=== PATIENT | female | born 1950 | race Caucasian/White ===

== ENCOUNTER → 2016-05-27 13:07 | Outpatient (CLI) | payer MEDICARE, OTHER ==
[2014-10-08 10:15] VITALS: BMI 30.1
[~2016-05-27 13:07] MED LIST: ADVAIR 250/501 DISK INH; ASPIRIN325 MG PO; ATROVENT 0.02%2.5 ML UPD; CYCLOBENZAPRINE10 MG PO; FLUTICASONE PRO16 GM NASAL; HEMOCYTE PLUS C1 CAP PO; K-DUR20 MEQ PO; LEVAQUIN 5500 MG/100 PO; NORCO 7.5/325 T1 TA1 PO; SINGULAIR10 MG PO; SYMBICORT 16010.2 GM INH; SYNTHROID50 MCG PO; ULTRAM50 MG PO; VENTOLIN HFA18 GM INH; XANAX0.25 MG PO; XOPENEX 0.0.63 MG/3 UPD
== END | disposition home or self-care (01) ==
LOC: D.CT 13:07
DX: R10.9 Unspecified abdominal pain (principal)

== ENCOUNTER 2016-06-29 05:10 | Day surgery (SDC) | payer MEDICARE, OTHER ==
[2016-06-28 12:21] LABS: HEMATOCRIT 44.4 % (36.0-48.0); HEMOGLOBIN 14.8 g/dL (12-16); MCH 33.9 pg (26.0-34.0); MCHC 33.3 g/dL (31.0-37.0); MCV 101.8 fL (80.0-100.0); MEAN PLATELET VOLUME 9.5 fL (7.4-10.4); RBC 4.36 10x6/uL (4.00-5.40); RDW 12.5 % (11.5-14.5); WBC 8.3 10x3/uL (4.8-10.8)
[2016-06-28 12:41] LABS: BACTERIA FEW /hpf (NONE SEEN); COLOR STRAW (YELLOW); EPITHELIAL CELLS OCC /hpf (0-5); MUCUS <1+ /lpf (NONE SEEN); WHITE CELLS - URINE 0-5 /hpf (0-5)
[2016-06-28 12:42] LABS: APPEARANCE HAZY (CLEAR); BILIRUBIN NEGATIVE (NEGATIVE); GLUCOSE NEGATIVE (NEGATIVE); KETONE NEGATIVE (NEGATIVE); LEUKOCYTE ESTERASE 1+ (NEGATIVE); NITRITE NEGATIVE (NEGATIVE); PROTEIN NEGATIVE (NEGATIVE); UROBILINOGEN NORMAL (NORMAL)
[~2016-06-29] VITALS: Ht 162.6 cm; Wt 81.2 kg
[~2016-06-29 05:10] MED LIST changes: -CYCLOBENZAPRINE10 MG PO; -NORCO 7.5/325 T1 TA1 PO
[2016-06-29 06:26] VITALS: BP 111/73; Ht 162.6 cm; Wt 81.2 kg
[2016-06-29] MEDS ORDERED: CYCLOBENZAPRINE10 MG PO (09:31)
[2016-06-29] MEDS ORDERED: NORCO 7.5/325 T1 TA1 PO (09:31)
--- NOTE | 2016-06-29 11:01 | NUR ---
UP TO BATHROOM, GAIT STEADY. OXYGEN SATURATION IS 98% ON 1L NC. OXYGEN REMOVED.
--- NOTE | 2016-06-29 12:10 | NUR ---
DR WONG IN, ORDERS RECEIVED FOR FLEXERIL, GIVEN.
--- NOTE | 2016-06-29 14:00 | NUR ---
DR WONG IN, ABDOMINAL BINDER ON PER ORDER. INFORMED HAS BEEN UNABLE TO VOID.
--- NOTE | 2016-06-29 16:00 | NUR ---
UNABLE TO VOID, BLADDER SCANNED, SHOWS 50ML. DR WONG BEEPED.
--- NOTE | 2016-06-29 16:21 | NUR ---
DR WONG CALLED REGARDING 50ML ON BLADDER SCAN. INFORMED HIM SHE HAS AUDIBLE WHEEZING WHEN LAYING DOWN AND COARSE INSPIRATORY LUNG SOUNDS TO AUSCULTATION. INFORMED SHE IS ON XOPENEX NEBULIZER AT HOME. INFORMED I HAVE GIVEN A LITER OF FLUIDS SINCE BACK FROM OR, ORDERS RECEIVED. STATES IF ABLE TO VOID FROM [facility] MAY GO HOME, IF NOT TO CALL HIM BACK.
--- NOTE | 2016-06-29 16:26 | NUR ---
LASIX 20MG IVP ORDERED.
--- NOTE | 2016-06-29 16:55 | NUR ---
UP TO BATHROOM, VOIDED A LARGE AMOUNT. NO LONGER WHEEZING. IV REMOVED INTACT. DISCHARGE INSTRUCTIONS AND RX GIVEN, VOICED UNDERSTANDING.
--- NOTE | 2016-06-29 17:15 | NUR ---
VOIDED AGAIN. DISCHARGED HOME VIA . SMILING. DENIES NEEDS.
--- NOTE | 2016-06-30 08:20 | OP ---
PATIENT NAME: OPAL MATTHEWS MEDICAL RECORD: [id number] :52 LOCATION:D.OPS ADMISSION DATE: SURGEON: JESSICA WONG MD DATE OF OPERATION: 06/29/2016 SURGEON: Jessica Wong MD PREOPERATIVE DIAGNOSES: 1. Ventral incisional hernia. 2. Peripheral vascular disease. 3. Chronic obstructive pulmonary disease. 4. Nicotine dependence. POSTOPERATIVE DIAGNOSES: 1. Ventral incisional hernia. 2. Peripheral vascular disease. 3. Chronic obstructive pulmonary disease. 4. Nicotine dependence. PROCEDURE PERFORMED: Laparoscopic lysis of adhesions, laparoscopic incisional hernia repair with Ventralight mesh, ____ inch and 4 x 6 inch mesh. ANESTHESIA: General. COMPLICATIONS: None. SPECIMENS: None. Case was clean. ESTIMATED BLOOD LOSS: 15 cc. OPERATIVE COURSE: After consent was obtained, the patient was taken to the operating room and placed in the supine position on the operating table. Next, general anesthesia was given via endotracheal intubation after a timeout was performed to confirm the correct patient and procedure. Next, the abdomen was prepped and draped in typical sterile fashion. Ioban dressing was placed. Starting at the Nolasco's point in the left upper quadrant, local anesthetic was injected. A stab incision was made with 11-blade scalpel. Using a 5-mm bladeless optical trocar, the abdomen was entered. Under direct laparoscopic vision, adequate pneumoperitoneum was achieved. The abdominal cavity was inspected. No evidence of bowel injury. No evidence of bleeding. The patient had a large significant amount of adhesions along the midline abdominal incision, all containing greater omentum. There appeared to be no bowel stuck to the anterior abdominal wall. At this time, all additional trocars were placed, a 12-mm trocar in the left lateral quadrant, 5-mm trocar in the left lower quadrant, two 5-mm trocars in the right lateral quadrant. At this time, laparoscopic lysis of adhesions was performed with a combination of blunt dissection and electrocautery. There were a total of 6 midline incisional hernias with a Micronesian cheese appearance. The total length from the most superior to most and inferior hernia was 20 cm, the widest hernia measured approximately 5 cm. At this time, ____ inch Ventralight ST mesh was placed into the abdomen. It was tacked anteriorly at the xiphoid process with the OptiFix tacking device. It was circumferentially tacked to the abdominal wall in a double crown fashion using the OptiFix suture. A second piece of mesh, a 4 inch x 6 inch mesh was OPERATIVE REPORT [id number] OPAL MATTHEWS altered with scissors externally to fit. It was then placed in the abdomen and placed overlapping in the inferior portion of the stitch and then placed onto the pubic tubercle. Again, it was fashioned to the anterior abdominal wall in a double crown fashion using OptiFix suture device, both Echo positioning systems were then removed through the 12-mm trocar. All pieces were intact. At this time, the abdominal wall was inspected. There was no evidence of bowel injury. No evidence of bleeding. The mesh was securely fastened to the anterior abdominal wall. The greater omentum and small bowel was inspected. There was no evidence of bowel injury. No evidence of bleeding. At this time, all remaining instruments were removed. The abdomen was desufflated. Trocars were removed. Skin was closed with 4-0 Monocryl, Mastisol and Steri-Strips. At the end of the case, all needle and instrument counts were correct. No complications occurred. TRANSINT:[id number] Voice Confirmation ID: [id number] DOCUMENT ID: [id number] JESSICA WONG MD at 0820 CC: [id number] DICTATION DATE: 06/29/16928 INTERNAL MEDICINE NURSE: 06/29/16 1337 [facility] 06/29/16 [id number] [place] [address]
== END 2016-06-29 17:15 | disposition home or self-care (01) ==
LOC: D.OPS 05:10 → D.PAN 08:00 → D.OPS 08:00
PROVIDERS: Anesthesiology
DX: K43.2 Incisional hernia without obstruction or gangrene (principal); I73.9 Peripheral vascular disease, unspecified; J44.9 Chronic obstructive pulmonary disease, unspecified; F17.200 Nicotine dependence, unspecified, uncomplicated

== ENCOUNTER → 2016-11-15 09:25 | Outpatient (CLI) | payer MEDICARE, OTHER ==
[2016-06-29 06:26] VITALS: BMI 30.8
[~2016-11-15 09:25] MED LIST changes: +CYCLOBENZAPRINE10 MG PO; +NORCO 7.5/325 T1 TA1 PO
[2016-11-15 10:11] LABS: CREATININE - SERUM 0.8 mg/dL (0.6-1.3)
== END | disposition home or self-care (01) ==
LOC: D.CT 09:25
PROVIDERS: Family Medicine
DX: I73.9 Peripheral vascular disease, unspecified (principal); N19 Unspecified kidney failure

== ENCOUNTER → 2016-11-21 16:30 | Outpatient (CLI) | payer MEDICARE, OTHER ==
[2016-06-29 06:26] VITALS: BMI 30.8
== END | disposition home or self-care (01) ==
LOC: D.CT 16:30
DX: I73.9 Peripheral vascular disease, unspecified (principal)

== ENCOUNTER → 2016-12-06 17:09 | Outpatient (CLI) | payer MEDICARE, OTHER ==
[2016-06-29 06:26] VITALS: BMI 30.8
== END | disposition home or self-care (01) ==
LOC: D.MAMMO 09:30
DX: R92.8 Other abnormal and inconclusive findings on diagnostic imaging of breast (principal)

== ENCOUNTER 2016-12-14 05:26 | Inpatient (IN) | payer MEDICARE, OTHER ==
[2016-12-13 15:23] LABS: HEMATOCRIT 44.2 % (36.0-48.0); HEMOGLOBIN 15.1 g/dL (12-16); MCH 34.5 pg (26.0-34.0); MCHC 34.2 g/dL (31.0-37.0); MCV 100.9 fL (80.0-100.0); MEAN PLATELET VOLUME 9.1 fL (7.4-10.4); RBC 4.38 10x6/uL (4.00-5.40); RDW 12.3 % (11.5-14.5); WBC 8.3 10x3/uL (4.8-10.8)
[2016-12-13 15:31] LABS: APPEARANCE SLT CLOUDY (CLEAR); APTT 27.5 SECONDS (22.8-39.4); BILIRUBIN NEGATIVE (NEGATIVE); COLOR YELLOW (YELLOW); GLUCOSE NEGATIVE (NEGATIVE); INR 0.91 (0.85-1.17); KETONE NEGATIVE (NEGATIVE); LEUKOCYTE ESTERASE TRACE (NEGATIVE); NITRITE POSITIVE (NEGATIVE); PROTEIN TRACE mg/dL (NEGATIVE); PROTIME 12.1 SECONDS (11.6-15.0); SPECIFIC GRAVITY 1.015 (1.005-1.020); UROBILINOGEN NORMAL (NORMAL)
[2016-12-13 15:33] LABS: BACTERIA MANY /hpf (NONE SEEN); EPITHELIAL CELLS 0-5 /hpf (0-5); RED CELLS - URINE RARE /hpf (0-5)
[2016-12-13 16:01] LABS: ALBUMIN 3.7 g/dL (3.4-5.0); ANION GAP 12.5 mmol/L (8-16); BILIRUBIN - TOTAL 0.57 mg/dL (0.2-1.3); CALCIUM 8.8 mg/dL (8.5-10.1); CARBON DIOXIDE 28.6 mmol/L (21.0-32.0); POTASSIUM - SERUM 4.1 mmol/L (3.5-5.1); PROTEIN - SERUM 7.2 g/dL (6.4-8.2)
[~2016-12-14] VITALS: Ht 162.6 cm; Wt 79.5 kg
[2016-12-14] VITALS (34 sets, daily range): BP systolic 96–144; BP diastolic 49–81; BMI 29.7; BMI 31.1
[~2016-12-14 05:26] MED LIST changes: +ALENDRONATE SOD70 MG PO; +ASPIRIN81 MG PO
--- NOTE | 2016-12-14 12:10 | NUR ---
RECIEVED PT TO ROOM. ASSSESSMENT COMPLETE PER FLOWSHEET. REFER FOR DETAILS. ATTACHED TO ICU MONITORS. WILL RECOVER PT. CALL LIGHT IN REACH AND BED IS IN LOW POSITION WITH ALARM ON. WILL MONITOR FOR CHANGES.
--- NOTE | 2016-12-14 12:54 | NUR ---
MORPHINE FINAL INSPECTOR BALANCE WHEEL STARTED. PT C/O ABD AND INCISIONAL PAIN. WILL REASSESS.
[2016-12-14 13:31] LABS: HEMATOCRIT 38.5 % (36.0-48.0); HEMOGLOBIN 12.9 g/dL (12-16)
--- NOTE | 2016-12-14 15:00 | NUR ---
REASSESSMENT COMPLETE PER FLOWSHEET. NO CHANGES NOTED.
--- NOTE | 2016-12-14 17:45 | NUR ---
ONE TIME MORPHINE DOSE GIVEN PER ORDERS. WILL MONITOR.
--- NOTE | 2016-12-14 18:00 | NUR ---
FAMILY AT BEDSIDE. UPDATE PROVIDED.
--- NOTE | 2016-12-14 19:00 | NUR ---
1900: Pt resting HOB 30 degrees with eyes closed. Open to verbal. Pupils MALLORIE+ bilat. SMCx4=bilat anode rebuilder. Pt c/o incisional pain 5/10. Pt denies nausea, vomitting, tingling, or numbness. Pt breathing 022LNC with AA86-81f with SPO2 97%. Encouraged DBC. S1S2 rapid regular ST 120's on CM. Pt temp 100.0F oral. Right radial ART line intact and transduced to CM with proper WF. Pt bilateral groin with incision and dressing intact. No s/s of bleeding, oozing, swellling noted. Pt bilateral dorsalis pedis not palpable at this time, but easily assessed via doppler. ABD soft NT BSx4. Ragsdale/Criticore >30 cc/hr UOP.
--- NOTE | 2016-12-14 21:00 | NUR ---
2100: Pt family here at bedside. Provided water as per request and pt able to swallow without difficulty.
[2016-12-14 21:02] LABS: HEMOGLOBIN 13.3 g/dL (12-16)
--- NOTE | 2016-12-14 22:50 | NUR ---
2250: SBP 110-120 Continue to titrate NTG as per orders. No change in pt RESP/CV/NV status. No change in other IVF/UOP. Pt remains ST 120-130 bpm with Temp 100.0F oral at this time.
--- NOTE | 2016-12-14 23:15 | NUR ---
2315: NTG off at this time.
[2016-12-15] VITALS (41 sets, daily range): BP systolic 92–131; BP diastolic 50–69; Ht 162.6 cm; Wt 79.5 kg
--- NOTE | 2016-12-15 00:50 | NUR ---
0050: Pt c/o "burping up bile." Zofran admin at this time.
--- NOTE | 2016-12-15 01:00 | NUR ---
0100: Pt remains ST 120's at this time with SBP 100-110 with NTG off. Pt bilateral incision sites unchanged from assessment. Bilateral D. Pedis pulses easily obtainable via doppler.
--- NOTE | 2016-12-15 03:00 | NUR ---
0300: No change in pt RESP/CV/NV status. No change in incision sites or dressings. No s/s of bleeding or hematoma noted. Pt has no c/o at this time. Pt remains ST 118 with SBP 113 Temp 99.5F oral.
--- NOTE | 2016-12-15 04:45 | NUR ---
0445: Pt tearfull at this time. Pt withuot c/o. Reassured patient and provided positive re-enforcement. Pt states "I don't know why." Pt remains ST 116 with SBP 111 with NTG gtt off. No change in dressings or distal pulses. Pt c/o of feet being cold. Warm blanket to just feet placed. Removed large "white" blanket and pt remains with sheet.
[2016-12-15 06:01] LABS: HEMATOCRIT 38.4 % (36.0-48.0); HEMOGLOBIN 12.6 g/dL (12-16); MCH 34.1 pg (26.0-34.0); MCHC 32.8 g/dL (31.0-37.0); MEAN PLATELET VOLUME 8.9 fL (7.4-10.4); RBC 3.69 10x6/uL (4.00-5.40); RDW 12.8 % (11.5-14.5); WBC 8.8 10x3/uL (4.8-10.8)
[2016-12-15 06:05] LABS: MCV 104.1 fL (80.0-100.0)
--- NOTE | 2016-12-15 06:30 | NUR ---
0630: No change in pt RESP/CV/NV status. Pt remains calm at this time. No change in IVF/UOP.
[2016-12-15 06:38] LABS: ALBUMIN 2.5 g/dL (3.4-5.0); ANION GAP 12.8 mmol/L (8-16); BILIRUBIN - TOTAL 0.7 mg/dL (0.2-1.3); CARBON DIOXIDE 25.3 mmol/L (21.0-32.0); POTASSIUM - SERUM 4.1 mmol/L (3.5-5.1); PROTEIN - SERUM 5.5 g/dL (6.4-8.2)
--- NOTE | 2016-12-15 07:15 | NUR ---
REPORT RECIEVED FROM [facility] ROOM OPERATOR NURSE. PT RESTING QUEITLY. NO S/SX OF ACUTE DISTRESS NOTED AT THIS TIME. SHIFT ASSESSMENT COMPLETE PER FLOWSHEET. CALL LIGHT IN REACH. BED IN LOW POSITION. WILL CONT TO ASSESS FOR CHANGES.
--- NOTE | 2016-12-15 09:30 | NUR ---
R RADIAL A-LINE AND F/C REMOVED PER ORDERS. CATH INTACT FOR BOTH. MINIMAL BLEEDING UPON REMOVAL OF A-LINE. BAND AID PLACED OVER SITE. GUIDO HERNANDEZ.
--- NOTE | 2016-12-15 10:06 | NUR ---
* Is the patient Alert and Oriented? Yes 0 * How many steps to enter\exit or inside your home? Ramp 0 * PCP Dr. Beclher 0 * Pharmacy [facility] [address] 0 * Preadmission Environment Home with Family 0 * ADLs Independent 0 * Equipment Bedside Commode Nebulizer Rolling Walker 0 * List name and contact numbers for known caregivers / representatives who currently or will assist patient after discharge: Teodora - Enrico [phone] 0 * Additional services required to return to the preadmission environment? Yes 0 * Can the patient safely return to the preadmission environment? Yes 0 * Has this patient been hospitalized within the prior 30 days at any hospital? No Patient Name: OPAL MATTHEWS Admission Status: Elective Accout number: [id number] Admission Date: 12-14-2016 : 1950 Admission Diagnosis: Attending: JOE Current LOS: 1 Anticipated DC Date: 12-16-2016 Planned Disposition: Home with Home Health Primary Insurance: MEDICARE A & B Discharge Planning Comments: CM met with patient to assess dc plans/needs. Patient states she lives at home with her . She reports she is independent with all ADL's & IADL's. She has a walker & BSC but has not been using them at home. She also has a home nebulizer. She states she has had home health services in the past with [facility] & wants to use them again at discharge. JAMMIE signed. Initial referral faxed and called to Tyesha Esposito. CM will follow & assist as needed. Application Services Manager: Nicolle Leonard
--- NOTE | 2016-12-15 11:00 | NUR ---
PT AT BEDSIDE TO ASSIST PT OOB. ASSISTED TO RECLINER WITH MIN ASSIST. VS REMAINED STABLE. WILL CONT TO ASSESS.
--- NOTE | 2016-12-15 13:30 | NUR ---
REMAINS IN CHAIR. VSS. CALL LIGHT IN REACH. FRESH ICE WATER PLACED ON BST.
--- NOTE | 2016-12-15 16:00 | NUR ---
DR. GUERRA UPDATED ON PT'S CONCERNS OF MORPHINE MAKING HER NAUSEOUS. NO NEW ORDERS PROVIDED. WILL CONT TO ADMINISTER ZORFRAN NEEDED.
--- NOTE | 2016-12-15 17:00 | NUR ---
STATED SHE DID NOT WANT TO EAT DINNER. REQUESTED JELLO AND WATER.
--- NOTE | 2016-12-15 20:00 | NUR ---
2000: Pt assisted to bathroom with moderate assistance. Pt able to stand by self and gait unsteady without support. Pt returned to bed. (All linen changed) and all monitors and alarms reestablished. Pt placed on 022LNC PRN @ HS. (SPO2 94%) Pt c/o pain and nausea. MSO4 ROLL CARRIER in use and pt given Zofran for nausea as per orders. Bilateral incisions sites CDI with some bruising noted. No swelling, bleeding, oozing or s/s of hematoma assessed at this time. Pt distal pulses easily obtainable via doppler. Pt remains ST 120's on CM with SBP 140. Temp 98.5F Oral.
--- NOTE | 2016-12-15 22:00 | NUR ---
2200: Pt resting HOB 30 degrees with eyes closed at this time. Pt remains ST 110 with SBP 100's. No change in IVF/UOP.
[2016-12-16] VITALS (22 sets, daily range): BP systolic 105–142; BP diastolic 52–67
--- NOTE | 2016-12-16 01:00 | NUR ---
0100: Pt requested assessment of right groin site. Area slightly swollen, but remains WNL. No bleeding, oozing, or S/S of hematoma noted. Pt bilateral posterior tibial palable at this time and bilateral extrem warm to touch. Pt remains ST on CM 110 with SBP 100's. Pt remains on 022LNC while sleeping.
--- NOTE | 2016-12-16 05:00 | NUR ---
0500: Pt asssited up OOB. Pt gait unsteady and required moderate assistance. No change in RESP/CV/NV status.
[2016-12-16 09:02] LABS: HEMATOCRIT 36.4 % (36.0-48.0); HEMOGLOBIN 12.1 g/dL (12-16); MCH 34.2 pg (26.0-34.0); MCHC 33.2 g/dL (31.0-37.0); MCV 102.8 fL (80.0-100.0); MEAN PLATELET VOLUME 9.4 fL (7.4-10.4); RBC 3.54 10x6/uL (4.00-5.40); RDW 12.6 % (11.5-14.5); WBC 12.8 10x3/uL (4.8-10.8)
[2016-12-16 09:45] LABS: ANION GAP 10.8 mmol/L (8-16); CALCIUM 7.2 mg/dL (8.5-10.1); POTASSIUM - SERUM 3.8 mmol/L (3.5-5.1)
[2016-12-16 09:46] LABS: CREATININE - SERUM 1.3 mg/dL (0.6-1.3)
--- NOTE | 2016-12-16 11:05 | NUR ---
AMBULATED APPROX 250' WITH P.T.
--- NOTE | 2016-12-16 19:30 | NUR ---
REPORT RECVD. CSARE ASSUMED. INITIAL ASSMNT COMPLETED. SEE FLOWSHEET FOR ALL FINDINGS. AWAKE AND AOX4. PERRLA. RESP UNLABORED. LUNGS CTA ON RA. ST ON THE MONITOR. PULSES PALP, WEAK. GENERALIZED EDEMA NOTED. ASSISTED UP TO BR TO VOID CLR YELOOW UOP. C/O NAUSEA. BROWNISH YELLOWISH BILE EMESIS SEEN. PRN ZOFRAN GIVEN IVP. BATH GIVEN. LINENS CHANGED. ASSISTED BACK TO BED. POSITIONED SELF FOR COMFORT. VSS. HOB UP. C/L IN REACH. BED ALARM ON. CONT POC.
--- NOTE | 2016-12-16 21:30 | NUR ---
HS MEDS GIVEN WITH SIPS OF H20 D/T NAUSEA. PRN REGLAN GIVEN IVP FOR CONT SMALL AMNT OF EMESIS. VSS. HOB UP. C/L IN REACH. CONT POC.
--- NOTE | 2016-12-16 23:30 | NUR ---
REASSESSMENT COMPLETED. SEE FLOWSHEET FOR ALL FINDINGS. RESTING. RESP UNLABORED. LUNGS CTA ON RA. ST ON THE MONITOR. PULSES PALP, WEAK. GENERALIZED EDEMA NOTED. ASSISTED UP BR TO VOID CLR YELOOW UOP. ASSISTED BACK TO BED. POSITIONED SELF FOR COMFORT. CONT TO HAVE SMALL AMNT OF BILE LIKE EMESIS. VSS. HOB UP. C/L IN REACH. BED ALARM ON. CONT POC.
[2016-12-17] VITALS (23 sets, daily range): BP systolic 104–144; BP diastolic 60–79
--- NOTE | 2016-12-17 01:25 | NUR ---
RESTING WITH EYES CLOSED. VSS. ST ON THE MONITOR. HOB UP. C/L IN REACH. BED ALARM ON. CONT CURRENT POC.
--- NOTE | 2016-12-17 05:10 | NUR ---
REMAINS NAUSEATED WITH OCC SMALL AMNT OF BILE LIKE EMESIS NOTED. VSS. ST ON THE MONITOR. ORAL CARE SWABS PROVIDED. CONT POC.
--- NOTE | 2016-12-17 12:18 | OP ---
PATIENT NAME: OPAL MATTHEWS MEDICAL RECORD: [id number] :52 LOCATION:DAL[facility] D.CV07 ADMISSION DATE:12/14/16 SURGEON: SHAWN CHAVEZ MD DATE OF OPERATION: 12/14/2016 SURGEON: Shawn Chavez MD. ANESTHESIA: General endotracheal, Dr. Kessler. OPERATION PERFORMED: 1. Right to left femoral-femoral bypass utilizing 6 mm Impra graft. 2. Thromboendarterectomy, right common femoral artery. PREOPERATIVE DIAGNOSES: 1. Claudication of lower extremities bilaterally, left greater than right. 2. 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 POSTOPERATIVE DIAGNOSES: 1. Claudication of lower extremities bilaterally, left greater than right. 2. 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 INDICATION FOR OPERATION: Claudication. FINDINGS OF THE OPERATION: There was thrombosis and sclerosis of the proximal common femoral artery. There was also debris with neointima and clot in the right limb of the aortobifemoral graft. The vessels below were both supple and good targets. ESTIMATED BLOOD LOSS: Less than 150 mL. The graft is an Impra 6 mm, beaded. DESCRIPTION OF PROCEDURE: After informed consent, adequate preoperative medication evaluation, the patient was brought to the operating room and placed on the table in supine position. After induction of general endotracheal anesthesia and application of appropriate monitoring devices, the abdomen, groins and both thighs were prepped and draped in a sterile field, utilizing Betadine scrub, alcohol, and Betadine solution. A Betadine-impregnated drape was also used. An oblique incision was made above the left inguinal ligament and dissection carried down the fascia. Hemostasis maintained with electrocautery. The common femoral artery and the profunda femoral artery were dissected free of surrounding structures, which was difficult due to previous surgery above. A retrorectus plane was developed under direct vision. Attention was then turned toward the right groin. Incision made and dissection carried down to the fascia. The inguinal ligament was elevated. There were dense adhesions between the graft and the inguinal ligament as well as the graft and common femoral and distal iliac vein. This was all dissected free with careful sharp dissection. The patient then had a retrorectus tunnel made in the preperitoneal space, right to left. A passer was placed down the graft brought through the tube. The anastomosis to the right was then accomplished by incising the foot of the graft and on to the common femoral artery. The artery underwent a thromboendarterectomy with a good result. The anastomosis was approximately 3.5 cm in length, which formed as a patch angioplasty as well as the proximal end of the femoral-femoral bypass. Anastomosis accomplished with 5-0 [place]-Wade suture. All maneuvers to remove trapped air were performed. The OPERATIVE REPORT [id number] OPAL MATTHEWS clamps placed on the graft and flow allowed through the right leg. There was excellent flow by Doppler. The contralateral anastomosis was then accomplished to the distal common femoral artery end-to-side utilizing a running 5-0 [place]-Wade suture. All maneuvers removed trapped air were performed. The clamps were removed sequentially. The artery secured. The patient was given a calculated dose of protamine to reverse the heparin. Heparin was given 3 minutes before clamping. The graft had good flow as well as the common femoral arteries bilaterally. Hemostasis was achieved. Instrument count and sponge counts were correct times 2. The wounds closed in layers utilizing 2-0 Vicryl on deep subcutaneous tissue, 3-0 Vicryl on superficial subcutaneous tissues. Skin approximated with 5-0 subcuticular Vicryl. Sterile dressings were applied. The patient tolerated the procedure well and transferred to the CV ICU in satisfactory condition. TRANSINT:[id number] Voice Confirmation ID: [id number] DOCUMENT ID: [id number] SHAWN CHAVEZ MD at 1218 CC: [id number] DICTATION DATE: 12/14/16 1233 SHIP BOSS: 12/14/16 1621 ADM [address] [place] [id number] [place] [id number]
--- NOTE | 2016-12-17 16:30 | NUR ---
DR. GUERRA NOTIFIED OF XRAY RESULTS.
--- NOTE | 2016-12-17 17:30 | NUR ---
NGT PLACED BY RINA SPENCER. VERIFIED BY AUSCLETATION. CONTRAST TO BE GIVEN.
--- NOTE | 2016-12-17 17:45 | NUR ---
1 HOUR PREP ORDERED.
--- NOTE | 2016-12-17 19:30 | NUR ---
REPORT RECVD. CSARE ASSUMED. INITIAL ASSMNT COMPLETED. SEE FLOWSHEET FOR ALL FINDINGS. AWAKE AND AOX4. PERRLA. RESP UNLABORED. LUNGS CTA ON RA. ST ON THE MONITOR. PULSES PALP, WEAK. GENERALIZED EDEMA NOTED. UP IN CHAIR AT BEDSIDE. DENIES DISCOMFOR. ABD DISTENDED, BS SCANT. NGT PATENT AND SECURED TO LIWS. BROWNISH STOMACH CONTENTS TO CANISTER. LINENS CHANGED. ASSISTED BACK TO BED. POSITIONED SELF FOR COMFORT. VSS. HOB UP. C/L IN REACH. BED ALARM ON. CONT POC.
--- NOTE | 2016-12-17 21:00 | NUR ---
ASSISTED TO BR TO VOID. BACK TO BED. NGT PATENT AND SECURED TO LIWS. VSS. HOB UP. C/L IN REACH. CONT POC.
--- NOTE | 2016-12-17 21:45 | NUR ---
SPOKE WITH DR PACK, RADIOLOGIST WITH RAYS R/T CT SCAN RESULTS. INFORMED DR GUERRA TO CALL DR PACK TO DISCUSS.
--- NOTE | 2016-12-17 22:20 | NUR ---
SPOKE WITH DR GUERRA. ORDERS RECVDTO CONSENT FOR SX IN AM AND ORDERS FOR ABT INVANZ, AND TYPE AND SCREEN FOR 4 UNITS. NFL PLAYER NOTIFIED FOR MEDICATION AND TO CONTACT HEART TEAM AND ANESTHESIA.
--- NOTE | 2016-12-17 23:00 | NUR ---
SPOKE WITH DR MCCLELLAND. PRE OP ANESTHESIA ORDERS RECVD.
--- NOTE | 2016-12-17 23:30 | NUR ---
REASSESSMENT COMPLETED. SEE FLOWSHEET FOR ALL FINDINGS. FINDINGS. RESTING. AOX4. PERRLA. RESP UNLABORED. LUNGS CTA ON RA. ST ON THE MONITOR. PULSES PALP, WEAK. GENERALIZED EDEMA NOTED. DENIES DISCOMFOR. ABD DISTENDED, BS SCANT. NGT PATENT AND SECURED TO LIWS. BROWNISH STOMACH CONTENTS TO CANISTER. BLADDER NON PALP. UP TO BR WITH MINIMAL ASSIST. POSITIONED SELF FOR COMFORT. VSS. HOB UP. C/L IN REACH. BED ALARM ON. CONT POC.
[2016-12-18] VITALS (33 sets, daily range): BP systolic 107–152; BP diastolic 54–90
--- NOTE | 2016-12-18 01:30 | NUR ---
RESTING WITH NO DISTRESS. DISCUSSED PROCEDURE IN AM. CONSENTS SIGNED. TEACHING DONE. TEARFUL. WILL CALL FAMILY IN AM PER REQUEST. VSS. ASSISTED TO BR TO VOID JOAQUINA CONCENTRATED UOP. VSS. HOB UP. C/L IN REACH. CONT CURRENT POC.
--- NOTE | 2016-12-18 03:30 | NUR ---
REASSESSMENT COMPLETED. SEE FLOWSHEET FOR ALL FINDINGS. FINDINGS. RESTING. AOX4. PERRLA. RESP UNLABORED. LUNGS CTA ON RA. SR ON THE MONITOR. PULSES PALP, WEAK. GENERALIZED EDEMA NOTED. DENIES DISCOMFOR. ABD DISTENDED, BS SCANT. NGT PATENT AND SECURED TO LIWS. BROWNISH STOMACH CONTENTS TO CANISTER. BLADDER NON PALP. UP TO BR WITH MINIMAL ASSIST. POSITIONED SELF FOR COMFORT. VSS. HOB UP. C/L IN REACH. BED ALARM ON. CONT POC.
--- NOTE | 2016-12-18 05:00 | NUR ---
HIBICLENS BATH DONE. ASSISTED BR TO VOID. VSS. NGT PATENT AND SECURED. HOB UP. C/L IN REACH. CONT POC.
[2016-12-18 05:44] LABS: HEMATOCRIT 32.5 % (36.0-48.0); HEMOGLOBIN 11.3 g/dL (12-16); MCH 34.5 pg (26.0-34.0); MCHC 34.8 g/dL (31.0-37.0); MEAN PLATELET VOLUME 9.5 fL (7.4-10.4); RBC 3.28 10x6/uL (4.00-5.40); RDW 12.2 % (11.5-14.5)
--- NOTE | 2016-12-18 05:48 | NUR ---
SISTER AT BEDSIDE. UPDATE GIVEN.
[2016-12-18 05:50] LABS: MCV 99.1 fL (80.0-100.0)
[2016-12-18 06:02] LABS: ALBUMIN 2.1 g/dL (3.4-5.0); ANION GAP 13.6 mmol/L (8-16); BILIRUBIN - TOTAL 0.89 mg/dL (0.2-1.3); CARBON DIOXIDE 26.9 mmol/L (21.0-32.0); CREATININE - SERUM 1.2 mg/dL (0.6-1.3); POTASSIUM - SERUM 3.5 mmol/L (3.5-5.1); PROTEIN - SERUM 6.6 g/dL (6.4-8.2)
--- NOTE | 2016-12-18 07:11 | NUR ---
TRANSFERRED TO OR VIA BED WITTH OR TEAM.
--- NOTE | 2016-12-18 12:00 | NUR ---
UPPER EXT PPP. LOWER RIGHT EXT DOPPLERABLE AT POST TIBIAL AND DORSALIS PEDAL. LEFT LOWER EXT DOPPERABLE AT POST TIBIAL ONLY. DORSALIS PEDAL IS ABSENT.
--- NOTE | 2016-12-18 12:00 | NUR ---
REC'D FROM OR ACCOMPANIED BY OR STAFF. HOOKED UP LTO CM BY YADIRA NORTON RN. LEFT SCDL WITH PLASMALYTE, DOPAMINE INFUSING. SBP 167. DOPAMINE TURNED OFF AND NITRO GTT STARTED. ANSWERS QUESTIONS WITH HEAD NODS.SBP REDUCES TO 135. LEFT RADIAL TRACEY LEVELED AND ZEROED. CVP TO DISTAL PORT OF LEFT SCDL. LEVELED AND ZEROED. LEFT UPPER QUAD DRSG. BILAT GROIN INCISIONS. ALL DRSG CD&I. SCD'S. HEELS ARE BRIDGED. CPOC
[2016-12-18 13:11] LABS: HEMATOCRIT 28.8 % (36.0-48.0); HEMOGLOBIN 9.8 g/dL (12-16); MCH 33.8 pg (26.0-34.0); MCV 99.3 fL (80.0-100.0); RBC 2.9 10x6/uL (4.00-5.40); RDW 12.6 % (11.5-14.5); WBC 10.9 10x3/uL (4.8-10.8)
[2016-12-18 13:25] LABS: ALBUMIN 1.7 g/dL (3.4-5.0); ALKALINE PHOSPHATASE 41 U/L (46-116); ALT (SGPT) 18 U/L (10-68); BILIRUBIN - TOTAL 1.26 mg/dL (0.2-1.3); CALC OSMOLALITY 264 mosm/kg (275-300); CALCIUM 7.1 mg/dL (8.5-10.1); CARBON DIOXIDE 24.4 mmol/L (21.0-32.0); CHLORIDE - SERUM 99 mmol/L (98-107); GLUCOSE 128 mg/dL (74-106); POTASSIUM - SERUM 3.1 mmol/L (3.5-5.1); SODIUM 128 mmol/L (136-145); UREA NITROGEN 30 mg/dL (7-18)
[2016-12-18 13:27] LABS: CREATININE - SERUM 0.7 mg/dL (0.6-1.3); PROTEIN - SERUM 4.9 g/dL (6.4-8.2); eGFR NON AFRICAN AMERICAN 89 mL/min (90-120)
--- NOTE | 2016-12-18 15:15 | NUR ---
AWAKE. FLACC SCALE 8/10 FOR PAIN.
--- NOTE | 2016-12-18 15:24 | NUR ---
HOB AT 30 DEGREES
--- NOTE | 2016-12-18 15:33 | NUR ---
TITRATING DIPRIVAN AND FENTENYL TO EFFECT.
--- NOTE | 2016-12-18 16:00 | NUR ---
NO CHANGES IN PP. LOWER EXT REMAIN DOPPLERABLE.
--- NOTE | 2016-12-18 16:52 | NUR ---
ALTAGRACIA RT DECREASED FIO2 TO 50%.
--- NOTE | 2016-12-18 17:45 | NUR ---
NITRO DC'D. FENTANYL AND DIPRIVAN BEING TITRATED TO EFFECT.
--- NOTE | 2016-12-18 19:00 | NUR ---
REPORT RECEIVED AND ASSESSMENT COMPLETED. SEE FLOWSHEET FOR FULL DETAILS. PT WAS A POST OP FEM FEM BY DR GUERRA. HAD SMALL BOWEL OBSTRUCTION WHICH RESULTED IN SURGERY, AND REVERSAL OF DR CHILDRESS PROCEDURE. AT THIS TIME ALL INCISIONS ARE CDI WITH NO EVIDENCE OF HEMATOMA. PT IS ON THE VENT A/C RATE OF 14 AT 50% FIO2. SAT 97%. EXTREMETIES ARE COOL AT THIS TIME RADIAL PULSES PRESENT. LEFT RADIAL HAS A LINE; HOWEVER, THE IN THE LOWER EXTREMETIES, THE TIBIAL PULSE HAS TO BE DOPPLERED BUT IS PRESENT BILATERALLY. VSS AT THIS TIME. WILL CONTINUE TO MONITOR FOR CHANGES IN STATUS THROUGHOUT SHIFT.
--- NOTE | 2016-12-18 21:00 | NUR ---
2100 MEDS GIVEN. PT REPOSITIONED, AND ORAL CARE COMPLETED. RT IN ROOM TO GET ABG'S WILL MONITOR RESULTS AND ACT ACCORDINGLY.
--- NOTE | 2016-12-18 23:00 | NUR ---
DURING 2100 HOUR, ABG RESULTS RECEIVED, AND PHYSICIAN CONTACTED REGARDING RESULTS. PLACED ORDERS FOR 2 UNIT PRBC WHEN HCT BELOW 25, 2 AMP HCO3, AND 40 MEQ OF POTASSIUM OVER [address] GUERRA. WILL ADMINISTER IMMEDIATELY AND MONITOR FOR COMPLICATIONS.
[2016-12-19] VITALS (69 sets, daily range): BP systolic 80–141; BP diastolic 41–60
--- NOTE | 2016-12-19 01:00 | NUR ---
ABG DRAWN BT RT. CALCIUM NOW CRITICAL LOW AT 0.79. MD NOTIFIED. NO NEW ORDERS RECEIVED AT THIS TIME. WILL CONTINUE TO MONITOR PT THROUGHOUT SHIFT.
--- NOTE | 2016-12-19 03:00 | NUR ---
REASSESSMENT COMPLETED. SEE FLOWSHEET FOR FULL DETAILS. VSS. NO OTHER CHANGES IN STATUS AT THIS TIME. WILL CONTINUE TO MONITOR
--- NOTE | 2016-12-19 05:00 | NUR ---
I&O COLLECTED. NO CHANGES IN PT STATUS AT THIS TIME. WILL CONTINUE TO MONITOR THROUGH THE REMAINDER OF THE SHIFT
[2016-12-19 06:05] LABS: HEMATOCRIT 35.4 % (36.0-48.0); MCH 33.1 pg (26.0-34.0); MCHC 33.9 g/dL (31.0-37.0); MCV 97.5 fL (80.0-100.0); MEAN PLATELET VOLUME 9.5 fL (7.4-10.4); RBC 3.63 10x6/uL (4.00-5.40); RDW 15.5 % (11.5-14.5); WBC 9.8 10x3/uL (4.8-10.8)
[2016-12-19 06:25] LABS: ALBUMIN 1.5 g/dL (3.4-5.0); BILIRUBIN - TOTAL 3.55 mg/dL (0.2-1.3); CARBON DIOXIDE 30.3 mmol/L (21.0-32.0)
[2016-12-19 06:27] LABS: ANION GAP 8.7 mmol/L (8-16); CALCIUM 6.9 mg/dL (8.5-10.1); CREATININE - SERUM 0.9 mg/dL (0.6-1.3)
--- NOTE | 2016-12-19 07:45 | NUR ---
RECEIVED PT FOR CARE. PT RESTING IN BED WITH EYES CLOSED. ASSESSMENT COMPLETED.
--- NOTE | 2016-12-19 10:00 | NUR ---
PT HYPOTENSIVE. STARTING VASSOPRESSIN GTT.
--- NOTE | 2016-12-19 10:15 | NUR ---
DR. GUERRA AT BEDSIDE. UPDATED FAMILY ON PT'S STATUS AND PLAN OF CARE.
--- NOTE | 2016-12-19 10:31 | NUR ---
NUTRITION MONITORING & EVAL CHART REVIEWED, PT REMAINS NPO ON VENT. IF TUBE FEEDS REQUIRED, RECOMMEND PULMOCARE @ 10 CC/HR. INCREASE 10 CC/HR Q 8 HOURS TOLERATED TO GOAL RATE 45 CC/HR. RD FOLLOWING
--- NOTE | 2016-12-19 10:33 | OP ---
PATIENT NAME: OPAL MATTHEWS MEDICAL RECORD: [id number] :52 LOCATION:DALMA D.CV07 ADMISSION DATE:12/14/16 SURGEON: SHAWN CHAVEZ MD DATE OF OPERATION: 12/18/2016 SURGEON: Shawn Chavez MD and Lasha Young MD OPERATION PERFORMED: 1. Repair of small bowel. 2. Removal of femoral-femoral bypass graft. PREOPERATIVE DIAGNOSIS: Small-bowel obstruction. POSTOPERATIVE DIAGNOSIS: Small-bowel obstruction secondary to trapped loop small-bowel. INDICATION FOR OPERATION: Small-bowel obstruction. FINDINGS AT OPERATION: Small-bowel obstruction secondary to trapped small bowel loop, there was contamination of the graft. ESTIMATED BLOOD LOSS: Less than 150 mL. DESCRIPTION OF PROCEDURE: After informed consent, adequate preoperative medication and evaluation, the patient was brought to the operating room, placed on the table in the supine position. After induction of general endotracheal anesthesia and application of appropriate monitoring devices, the chest, neck, abdomen, and both legs were prepped and draped in a sterile field, utilizing Betadine scrub, alcohol, and Betadine solution. A Betadine-impregnated drape was also used. Dr. Young performed a laparoscopy and identified the trapped loops of small bowel and the lower abdomen with inflammation. He therefore made a Pfannenstiel incision and carried dissection down to the abdomen and the loop of small bowel was identified and repaired the femoral-femoral graft, it was divided and left in placed. The abdomen was irrigated with copious amounts of antibiotic solution and normal saline. The instrument counts and sponge counts were correct times [address] Young repair the incision and closed the skin with skin zack. The patient was then reprepped and draped. The groin incisions on either side were opened and dissection carried down to the femoral-femoral graft. The right graft was a patch angioplasty involving the aortofemoral graft and common femoral artery. This graft was amputated at its insertion and oversewn. The area was packed away and the stump of the graft was removed and cultured. The groin was irrigated with copious amounts of antibiotic solution and normal saline. The area was packed. Attention was then turned toward the left groin. The previous incision opened and the foot of the graft was removed utilizing a knife and scissors. The arteriotomy was oversewn utilizing a running 5-0 Prolene suture. There was good backbleeding from the distal vessels. The patient was given a calculated dose of protamine to reverse the heparin given as the first graft was excised. Hemostasis was assured. The wounds were again irrigated with copious amounts of antibiotic solution and normal saline. Instrument counts and sponge counts were correct times 2. The wound was closed in layers utilizing 2-0 Vicryl on deep subcutaneous tissue, 3-0 Vicryl on superficial subcutaneous tissues. Skin approximated with skin zack. Sterile dressings were applied. The patient tolerated the procedure well and transferred to CV ICU in stable condition. OPERATIVE REPORT [id number] OPAL MATTHEWS TRANSINT:[id number] Voice Confirmation ID: [id number] DOCUMENT ID: [id number] SHAWN CHAVEZ MD at 1033 CC: [id number] DICTATION DATE: 12/18/16 1149 SODA COLUMN OPERATOR: 12/18/16 1223 ADM IN [place] [id number] [place] [address]
[2016-12-19 10:48] LABS: BASOPHILS 0.3 % (0-2); EOSINOPHILS 0.5 % (0-7); HEMATOCRIT 33.3 % (36.0-48.0); HEMOGLOBIN 11.1 g/dL (12-16); IMMATURE GRANULOCYTES 4.5 % (0-5); LYMPHOCYTES 14.4 % (15-50); MCH 32.7 pg (26.0-34.0); MCHC 33.3 g/dL (31.0-37.0); MCV 98.2 fL (80.0-100.0); MEAN PLATELET VOLUME 9.9 fL (7.4-10.4); MONOCYTES 16.3 % (2-11); PLATELET COUNT 205 10x3/uL (130-400); RBC 3.39 10x6/uL (4.00-5.40); RDW 15.6 % (11.5-14.5); WBC 9.6 10x3/uL (4.8-10.8)
[2016-12-19 10:56] LABS: ALBUMIN 1.6 g/dL (3.4-5.0); ANION GAP 12.3 mmol/L (8-16); BILIRUBIN - TOTAL 3.57 mg/dL (0.2-1.3); CARBON DIOXIDE 28.7 mmol/L (21.0-32.0); CREATININE - SERUM 0.9 mg/dL (0.6-1.3); PROTEIN - SERUM 5.1 g/dL (6.4-8.2)
[2016-12-19 11:05] LABS: CALCIUM 6.8 mg/dL (8.5-10.1)
[2016-12-19 11:48] LABS: APTT 24.3 SECONDS (22.8-39.4); INR 1.21 (0.85-1.17); PROTIME 15.2 SECONDS (11.6-15.0)
--- NOTE | 2016-12-19 15:04 | CN ---
PATIENT NAME:OPAL MATTHEWS MEDICAL RECORD: [id number] : 52 LOCATION:LENNYID.CV07 ADMIT DATE: 12/14/16 ACCOUNT: [id number] CONSULTING PHYSICIAN: NIHARIKA FLYNN MD REFERRING PHYSICIAN: GAVINO GUERRA MD DATE OF CONSULTATION: 12/17/2016 CHIEF COMPLAINT: Nausea. HISTORY OF PRESENT ILLNESS: The patient has had nausea, vomiting and abdominal pain for a couple of days. She has undergone a recent fem-fem bypass. Her abdomen is distended. She has most tenderness in her left upper quadrant. Symptoms came on gradually. They are worsening. The patient has an NG tube in place. It is currently capped as she is going to be undergoing a CT scan with oral contrast soon. I have personally reviewed the x-ray report from her flat and upright views of the abdomen. I personally reviewed the images as well. There is no peritonitis to percussion. She has never had a bowel obstruction in the past. She has a midline incision and has undergone aortobifemoral bypass in the past. She then underwent a mesh repair of a midline hernia. They are not sure who did that operation, but they think it might be Dr. Reyna. She states it has been about a week since she last had a bowel movement. PAST MEDICAL AND SURGICAL HISTORY: Hypothyroidism, peripheral vascular disease, aortobifemoral bypass, recent fem-fem bypass, COPD, constipation, history of duodenal ulcer, anxiety, history of cholecystectomy, history of laparoscopy, history of the hernia repair as described above. ALLERGIES: ADHESIVE, IODINATED CONTRAST, SYMBICORT, PAXIL, SULFA, CODEINE, AND IODINE. FAMILY HISTORY: Her parent had cardiovascular disease, a sibling had cardiovascular disease, diabetes and cancer. SOCIAL HISTORY: Smokes every day. I have advised her to quit smoking. REVIEW OF SYSTEMS: No headache. No rash. Positive for nausea and vomiting. Positive for abdominal pain. Positive for some shortness of breath. Positive for orthopnea. The review of systems is negative other than as is described above. PHYSICAL EXAMINATION: GENERAL: The patient does appear acutely ill. She also appears chronically ill. VITAL SIGNS: Reviewed. The entire physical examination was performed in the presence of a female nurse. EARS: External ears appear normal. EYES: Extraocular movements are intact. NECK: Trachea is midline. CHEST: No intercostal retractions. PULMONARY: Mildly labored. No stridor. ABDOMEN: Protuberant. Tenderness as described above. I note no evidence of recurrent hernia. There are bilateral groin dressings in place. EXTREMITIES: No peripheral cyanosis. INTEGUMENT: I note no rash. PSYCHIATRIC: Anxious affect. CONSULT REPORT [id number] BYRONOPAL KRUGER NEUROLOGIC: Answers questions appropriately, follows commands. BACK: No thoracic kyphosis. LYMPHATICS: No lymphangitic streaking of the exposed extremities. IMPRESSION: Small-bowel obstruction, partial versus complete likely due to adhesions. PLAN: CT scan of the abdomen. Serial abdominal examinations. Nasogastric tube suction. Operation if she develops peritoneal signs or if her condition does not improve in the next 48 hours. TRANSINT:[id number] Voice Confirmation ID: [id number] DOCUMENT ID: [id number] NIHARIKA FLYNN MD at 1504 CC: GAVINO GUERRA MD [id number] DICTATION DATE: 12/17/161913 PAN OPERATOR: 12/17/162025 ADM IN [facility] [address] [id number]
--- NOTE | 2016-12-19 15:04 | OP ---
PATIENT NAME: OPAL MATTHEWS MEDICAL RECORD: [id number] :52 LOCATION:DALMA D.CV07 ADMISSION DATE:12/14/16 SURGEON: NIHARIKA FLYNN MD DATE OF OPERATION: 12/18/2016 PREOPERATIVE DIAGNOSIS: Iatrogenic small bowel injury through and through. POSTOPERATIVE DIAGNOSES: Iatrogenic small bowel injury through and through with extensive intra-abdominal adhesions. PROCEDURES: Diagnostic laparoscopy with conversion to exploratory laparotomy with small bowel resection and small bowel anastomosis. SURGEON: Niharika Flynn MD. NET PROGRAMMER: Dr. Chavez. COMPLICATIONS: None. DRAINS: Times 1. The patient has undergone a fem-fem bypass. I was asked to see her due to the possibility of small-bowel obstruction. She underwent a CT last evening. I received a call from Dr. Chavez. He stated that there is a possibility that there was an injury to the small bowel during the fem-fem bypass. We planned a combined operation for this morning. OPERATIVE COURSE: The patient was conveyed to the operating room urgently on 12/18/2016. General anesthesia was induced by the anesthesia staff. The abdomen was sterilely prepped and draped. A small skin morenita was accomplished in the left upper quadrant. Veress needle was inserted through the skin morenita into the peritoneal cavity. CO2 insufflation was begun. Once a sufficient pneumoperitoneum had been achieved, a 5-mm trocar was inserted. Three 5-mm trocar advanced a laparoscopic camera. I visualized what appeared to be pus and perhaps enteral contents in the right lower quadrant and I saw what appeared to be a full thickness small bowel injury. Laparotomy was therefore indicated. The trocar was removed. A Maylard type incision was accomplished 2 fingerbreadths above the pubic symphysis. I dissected down through skin and subcutaneous tissue as well as Breanne fascia. I incised the investing fascia of the abdomen transversely. I the rectus muscles in the midline. I entered the peritoneal cavity sharply. An Karlos retractor was placed. I noted intraabdominal adhesions. I was able to lysis some of these with a just a finger fracture technique. I ran as much of the small bowel is I could. I examined the colon. There appeared to have been no colonic injury. No rectal injury. There were type 3 adhesions from a loop of what was probably ileum to the right pelvic side wall and this is where the injury had occurred. There was a portion of PTFE graft the passed through and through a piece of bowel. OPERATIVE REPORT [id number] OPAL MATTHEWS Dr. clamped the fem-fem bypass. He tied off both sides of the fem-fem bypass and divided it. I was unable to deliver the small bowel off of the piece of De Beque-Wade graft. There was too much damage to this portion of the bowel to repair primarily. I instead divided the small bowel through both of the roughly circular defects through which the PTFE graft had passed. I then placed the small bowel into apposition side by side and was held in place with 3-0 Vicryl sutures. I advanced a SHANON-75 stapler and then fired the stapler. The resulting enteric defect was closed with single firing of a TA 60 stapler. I irrigated copiously in the abdomen and then aspirated. I had noted no other evidence of intestinal injury in the portions of the small bowel that I could run and examine. I brought a 19-Macedonian drain out through the right flank. The drain was placed in the pelvis. The rectus muscles were closed in the midline with multiple interrupted #1 Vicryls in a horizontal mattress fashion. The anterior fascia was closed with running #1 Vicryls. The subdermis was approximated with interrupted 3-0 Vicryls. We then closed the skin with metallic clips. The trocar site in the left upper quadrant was closed with a metallic clip as well. The drain was sutured to the skin with a nylon suture. We then took down the drapes and then I scrubbed out and Dr. Chavez was going to proceed with dissecting down in both groins and removing further portions of the PTFE graft. His participation in the operation included assistance with retraction, assistance with mobilization of the intestines, and division of the PTFE graft. TRANSINT:[id number] Voice Confirmation ID: [id number] DOCUMENT ID: [id number] NIHARIKA FLYNN MD at 1504 CC: [id number] DICTATION DATE: 12/18/16 1408 SEAT TRIMMER: 12/18/16 1650 ADM IN [facility] [address] [place] [address]
--- NOTE | 2016-12-19 17:00 | NUR ---
PT HAD COMPLETE BATH AND LINEN CHANGE.
--- NOTE | 2016-12-19 17:15 | NUR ---
PT HAVING SMALL RUNS OF JUNCTIONAL RHYTHM. ABG OBTAINED AND CALLED DR. GUERRA. THEY ARE LASTING APPROX 1 MINUTE AND RATE DEC DOWN TO 70. NO NEW ORDERS RECEIVED AT THIS TIME.
--- NOTE | 2016-12-19 19:00 | NUR ---
REPORT RECEIVED AND ASSESSMENT COMPLETED. PT IS NOW ON LEVOPHED AT 25, VASOPRESSIN AT 0.04 UNIT/MIN, AND NEW ORDER RECEIVED FOR DOPAMINE AT 3MCG/KG/MIN PER DR GUERRA. WILL ADMINISTER. PT B/P IS IN LOW 90'S SYSTOLIC, WITH A HR OF 65 AT THIS TIME. PT CHANGING BACK AND FOURTH BETWEEN NSR, AND JUNCTIONAL RHYTHM. MD IS AWARE OF PT CURRENT STATUS CHANGES. WILL TITRATE MEDICATIONS PER ORDERS. VSS. WILL MONITOR
--- NOTE | 2016-12-19 21:00 | NUR ---
2100 ABX ADMINISTERED. LEVOPHED OFF AT THIS TIME. DOPAMINE REMAINS AT 3MCG/KG/MIN, AND VASOPRESSIN UNCHANGED. B/P 134/50 AT THIS TIME HR 74. WILL CONTINUE TO TITRATE MEDS IN RESPONSE TO PT CONDITION.
--- NOTE | 2016-12-19 23:00 | NUR ---
REASSESSMENT COMPLETED. SEE FLOWSHEET FOR FULL DETAILS.PROPOFOL INCREASED TO FOR PT COMFORT AT THIS TIME. NOW RUNNING AT 65 MCG/KG/MIN. PT STILL AROUSABLE, AND CAN FOLLOW COMMANDS. WILL CONTINUE TO MONITOR
[2016-12-20] VITALS (88 sets, daily range): BP systolic 11–165; BP diastolic 44–64
--- NOTE | 2016-12-20 01:08 | NUR ---
PT B/P AND HR STABLE AT THIS TIME. WILL CONTINUE TO MONITOR AND TITRATE NEEDED. COMPLETE BEDBATH GIVEN AT THIS TIME.
--- NOTE | 2016-12-20 03:00 | NUR ---
REASSESSMENT COMPLETED. SEE FLOWSHEET FOR FULL DETAILS. ABD DRESSINGS CHANGES AT THIS TIME. WILL CONTINUE TO MONITOR
--- NOTE | 2016-12-20 05:00 | NUR ---
PT FAMILY MEMBER CALLED AND PROVIDED PASSCOADE. UPDATE GIVEN. NO OTHER CHANGES IN STATUS AT THIS TIME. WILL CONTINUE TO MONITOR
[2016-12-20 06:30] LABS: ALBUMIN 1.3 g/dL (3.4-5.0); ALKALINE PHOSPHATASE 49 U/L (46-116); ALT (SGPT) 17 U/L (10-68); CALC OSMOLALITY 281 mosm/kg (275-300); CARBON DIOXIDE 27.8 mmol/L (21.0-32.0); CHLORIDE - SERUM 105 mmol/L (98-107); CREATININE - SERUM 0.7 mg/dL (0.6-1.3); GLUCOSE 136 mg/dL (74-106); POTASSIUM - SERUM 3.3 mmol/L (3.5-5.1); PROTEIN - SERUM 4.9 g/dL (6.4-8.2); SODIUM 140 mmol/L (136-145); UREA NITROGEN 15 mg/dL (7-18); eGFR NON AFRICAN AMERICAN 89 mL/min (90-120)
[2016-12-20 06:31] LABS: CALCIUM 6.4 mg/dL (8.5-10.1); HEMATOCRIT 30.7 % (36.0-48.0); HEMOGLOBIN 10.1 g/dL (12-16); MCH 32.3 pg (26.0-34.0); MCHC 32.9 g/dL (31.0-37.0); MCV 98.1 fL (80.0-100.0); MEAN PLATELET VOLUME 9.8 fL (7.4-10.4); RBC 3.13 10x6/uL (4.00-5.40); RDW 16.3 % (11.5-14.5)
[2016-12-20 06:37] LABS: WBC 13.1 10x3/uL (4.8-10.8)
--- NOTE | 2016-12-20 09:00 | NUR ---
DR. GUERRA AND SHARDA VERNON RN AT BEDSIDE. DRESSINGS TO LOWER ABDOMEN CHANGED BY SHARDA VERNON.
--- NOTE | 2016-12-20 11:50 | NUR ---
DR. MARTINEZ AT BEDSIDE. UPDATED ON PT'S STATUS. ORDERS RECEIVED.
[2016-12-20 13:16] LABS: CKMB 0.9 U/L (0.0-3.6); CREATINE KINASE 391 UL (21-215)
[2016-12-20 13:18] LABS: TROPONIN-I < 0.017 ng/mL (0.000-0.060)
--- NOTE | 2016-12-20 15:10 | NUR ---
DR. SANCHEZ AT [facility]. VENT CHANGES MADE: PEEP 7, FIO2 40%, TV 600.
--- NOTE | 2016-12-20 19:00 | NUR ---
REPORT RECEIVED AND ASSESSMENT COMPLETED. AWARE OF JUNCTIONAL RHYTHMS. VASOPRESSIN OFF AT THIS TIME. SINCE LAST SHIFT THERE HAVE BEEN CHANGES TO VENT SETTINGS. PT IS NOW BACK ON 40% FIO2 WITH A TIDAL VOLUME OF 600. PEEP IS 7 AT THIS TIME. WILL MONITOR THROUGHOUT SHIFT AND CONTINUE TO TITRATE MEDS NEEDED.
[2016-12-20 20:18] LABS: CKMB 0.6 U/L (0.0-3.6); CREATINE KINASE 359 UL (21-215)
[2016-12-20 20:19] LABS: TROPONIN-I < 0.017 ng/mL (0.000-0.060)
--- NOTE | 2016-12-20 21:00 | NUR ---
2100 MEDS GIVEN. PT FAMILY MEMBER VISITED. UPDATED ON PT CONDITION, AND REPOSITIONED PATIENT. NO OTHER CHANGES I NSTATUS AT THIS TIME. WILL CONTINUE TO MONITOR
--- NOTE | 2016-12-20 23:00 | NUR ---
REASSESSMENT COMPLETED. SEE FLOWSHEET FOR FULL DETAILS. PT REPOSITIONED AND NEW BEDDING AND PILLOWS PROVIDED FOR COMFORT AT THIS TIME. CARDIAC ENZYME RESULTS BACK WITH NO SIGNIFICANT CHANGE FROM PREVIOUS TEST. WILL COLLECT MORE BLOOD FOR LAB WORK AT 0100.
[2016-12-21] VITALS (59 sets, daily range): BP systolic 92–146; BP diastolic 43–76
--- NOTE | 2016-12-21 01:00 | NUR ---
CVL DRESSING CHANGED USING STERILE TECHNIQUE. PT SUCTIONED AND ORAL AND DEL ANGEL CARE PERFORMED AT THIS TIME. NO OTHER CHANGED IN STATUS. VSS. WILL MONITOR
[2016-12-21 01:38] LABS: CKMB 0.3 U/L (0.0-3.6); CREATINE KINASE 317 UL (21-215); TROPONIN-I < 0.017 ng/mL (0.000-0.060)
--- NOTE | 2016-12-21 03:00 | NUR ---
REASSESSMENT COMPLETED. SEE FLOWSHEET FOR FULL DETAILS. PT REPOTIONED FOR COMFORT. PROPOFOL TUBING CHANGED PER PROTOCOL. NO OTHER CHANGES IN STATUS AT THIS TIME. WILL CONTINUE TO MONITOR
--- NOTE | 2016-12-21 05:00 | NUR ---
ABGS DRAWN BY RT. WILL CHECK RESULTS FOR NEED TO NOTIFY MD. I&O COLLECTED AND DAILY WEIGHT TAKEN. INTERMEDIATE TEACHER TUBING CHANGED PER PROTOCOL. WILL CONTINUE TO MONITOR
[2016-12-21 06:50] LABS: HEMATOCRIT 30.3 % (36.0-48.0); HEMOGLOBIN 10.1 g/dL (12-16); MCHC 33.3 g/dL (31.0-37.0); MEAN PLATELET VOLUME 9.9 fL (7.4-10.4); RBC 3.06 10x6/uL (4.00-5.40); WBC 11.6 10x3/uL (4.8-10.8)
[2016-12-21 07:12] LABS: ALKALINE PHOSPHATASE 54 U/L (46-116); ALT (SGPT) 15 U/L (10-68); BILIRUBIN - TOTAL 2.37 mg/dL (0.2-1.3); CALCIUM 7.3 mg/dL (8.5-10.1); CARBON DIOXIDE 26.4 mmol/L (21.0-32.0); CHLORIDE - SERUM 105 mmol/L (98-107); CREATININE - SERUM 0.6 mg/dL (0.6-1.3); POTASSIUM - SERUM 3.2 mmol/L (3.5-5.1); PROTEIN - SERUM 5.3 g/dL (6.4-8.2); SODIUM 141 mmol/L (136-145); eGFR NON AFRICAN AMERICAN > 90 mL/min (90-120)
[2016-12-21 07:13] LABS: ALBUMIN 2.3 g/dL (3.4-5.0); CALC OSMOLALITY 278 mosm/kg (275-300); GLUCOSE 86 mg/dL (74-106); UREA NITROGEN 11 mg/dL (7-18)
--- NOTE | 2016-12-21 07:45 | NUR ---
Recevied report from Pa RN. Patient currently intubated and sedated with Propofol and fentnyl. Patient awakens and tracts with stimuli. 8.0 ETT, 22 at the lip, SIMV rate of 14, 40% FIO2. NGT to right nare to LIWS, dark green drainage. Abdomen firm upon palpation, bowel sounds absent. Left radial lukasz with wrist guard in place, hand warm. Left subclavian CVL without redness at insertion site, dressing CDI changed 12/21/16. Ragsdale cath draining dark green urine. Temp 37.6 C via criticore. Sinus rhythm rate of 74 on CM. Suprapubic and bilateral groin incisions with dressings in place, dressing c/d/i without drainage. MIKCIE to right lower abdomen draining serosang drainage. See shift assessment for all findings.
--- NOTE | 2016-12-21 08:31 | NUR ---
Patient Name: OPAL MATTHEWS Encounter No: [id number] : 1950 Primary Insurance: MEDICARE A & B Anticipated DC Date: 12-16-2016 Planned Disposition: Home with Home Health DCP follow-up note: Patient sedated, on vent. No family present. Case management will follow and assist as needed. Nicolle Leonard
--- NOTE | 2016-12-21 09:40 | NUR ---
Missy RN with in room to change abdominal dressings. Old dressing with green drainage noted, redness and swelling at incision sites noted. Dressing changed per Missy. Patient tolerated well.
--- NOTE | 2016-12-21 09:46 | NUR ---
NUTRITION MONITORING & EVAL CHART REVIEWED. PT REMAINS ON VENT.NURSING REPORTS PT WITH NO CURRENT NUTRITION SUPPORT. PT MAY BENEFIT FROM PROCALAMINE @ 83 CC/HR. WILL PROVIDE 490 KCAL AND 60 GM PROTEIN PER DAY. PT WITH DIPRIVAN @ 30 CC/HR WHICH IS PROVIDING 792 KCAL PER DAY. WOULD TOTAL 1282 KCAL, 60 GM PR[address]IN [address] DAY. RD FOLLOWING
--- NOTE | 2016-12-21 10:10 | NUR ---
with cardiology through to see patient. We are to call if there is a change in patients heart rhythm.
--- NOTE | 2016-12-21 12:15 | NUR ---
through to see patient. Patients POC and condition dicussed, no new orders at this time.
--- NOTE | 2016-12-21 13:00 | NUR ---
through, Propofol turned off per . Weaning initiated, plans to extubated tomorrow if patient does well.
--- NOTE | 2016-12-21 14:03 | CN ---
PATIENT NAME:OPAL MATTHEWS MEDICAL RECORD: [id number] : 52 LOCATION:LENNYID.CV07 ADMIT DATE: 12/14/16 ACCOUNT: [id number] CONSULTING PHYSICIAN: SHANTELL SANCHEZ MD REFERRING PHYSICIAN: SHAWN GUERRA MD DATE OF CONSULTATION: 12/20/2016 CONSULT REQUESTING PHYSICIAN: Dr. Shawn Guerra. REASON FOR CONSULTATION: Vent management. HISTORY OF PRESENT ILLNESS: Mrs. Matthews is a 66-year-old female, now she is orally intubated and sedated. The history was taken mainly by reviewing the patient's note and talking to the nursing staff. The patient underwent fem-fem bypass on 12/14/2016. The patient had an intestinal obstruction, tachycardia and leukocytosis, taken back to the OR on 12/19/2016 and found out that the patient has gangrenous bowel and possible perforation with peritonitis. Concern for contamination of the graft, the graft was removed. The patient had past medical history of COPD. REVIEW OF SYSTEMS: Mainly in the history of present illness. PAST MEDICAL HISTORY: 1. COPD. 2. Hypothyroidism. 3. Peripheral vascular disease. 4. Aortobifemoral bypass. 5. History of frequent UTIs. 6. History of duodenal ulcer and constipation. 7. Chronic backache. 8. Osteoporosis. PAST SURGICAL HISTORY: 1. Cholecystectomy. 2. Laparoscopic surgery. 3. Aortobifemoral bypass. 4. Herniorrhaphy. ALLERGIES: SHE IS ALLERGIC TO: 1. ADHESIVE. 2. IODINATED WITH CONTRAST MEDIA. 3. BUDESONIDE. 4. FORMOTEROL 5. PAROXETINE. 6. SULFA. 7. CODEINE. PRESENT MEDICATIONS: On [place] is reviewed. PERSONAL AND SOCIAL HISTORY: The patient was smoker until the time of admission. She is a nondrinker. FAMILY HISTORY: Significant for cardiovascular disease. PHYSICAL EXAMINATION: CONSULT REPORT [id number] OPAL MATTHEWS GENERAL: Now, the patient is orally intubated and sedated. VITAL SIGNS: The blood pressure is 134/54, pulse is 68, respiration is 14, temperature is 98.7, SPO2 is 96%. She is on 50% oxygen, PEEP of 5 and SIMV at tidal volume of 550. HEENT: Conjunctiva is pale. Sclerae nonicteric. NECK: Supple, no JVD. The patient is orally intubated. CHEST: There is no wheeze, no rales. HEART: Rate and rhythm regular, normal sound, no murmur. ABDOMEN: Soft. There is an incision. There is no distention. RECTAL: Deferred. EXTREMITIES: No cyanosis, no clubbing, no pedal edema. SKIN: The skin is warm. There is an incision. CENTRAL NERVOUS SYSTEM: There is no obvious cranial nerve abnormality. The patient is orally intubated and sedated. CHEST RADIOGRAPH: There are increased interstitial markings. The ET tube is in good position. There are no infiltrates. LABORATORY DATA: CBC: WBC is 13.1, hemoglobin 10.1, hematocrit 30.7, platelet count 233. Chemistry: Sodium is 140, potassium 3.3, BUN is 15, creatinine 0.7, glucose 136. IMPRESSION: 1. Acute respiratory failure post-procedure. 2. Status post laparotomy secondary to perforated ischemic bowel. 3. Peritonitis. 4. Peripheral vascular disease, status post fem-fem bypass. 5. Chronic obstructive pulmonary disease without exacerbation. RECOMMENDATION: 1. We will continue the mechanical ventilation, adjust the setting. 2. Wean off the pressors as tolerated. 3. Antibiotic per Dr. Vargas. 4. Xopenex nebulizer. I will add ipratropium nebulizer. 5. Follow up labs and chest radiograph. 6. DVT and GI stress ulcer prevention. Dr. Guerra thank you for involving me in the care of Ms. Matthews The critical care time is 45 minutes.. TRANSINT:[id number] Voice Confirmation ID: [id number] DOCUMENT ID: [id number] SHANTELL SANCHEZ MD at 1403 CC: SHAWN GUERRA MD [id number] DICTATION DATE: 12/20/16 1544 COPPER ROLLER HANDLER PRINTING: 12/20/162010 ADM IN [facility] [address] [place] [address]
--- NOTE | 2016-12-21 15:44 | NUR ---
Patient tolerating ventilator weaning. Rate of 6, breathing 12/min. Patient following commands, low dose propofol for comfort.
--- NOTE | 2016-12-21 17:09 | NUR ---
Patient still tolerating weaning of vent, diprivan remains at low dose, patient follows commands and is staying calm. Report handed off to JOHANNA Lewis.
--- NOTE | 2016-12-21 18:05 | NUR ---
FAMILY AT BEDSIDE FOR VISITATION. UPDATE PROVIDED. ALL QUESTIONS ANSWERED.
--- NOTE | 2016-12-21 19:30 | NUR ---
1930- REPORT RECVD. CARE ASSUMED. INITIAL ASSMNT COMPLETED. SEE FLOWSHEET FOR ALL FINDINGS. SEDATED ON MECH VENT. ETT PATENT AND SECURED. SIMV SETTINGS. SPO2 97%. LUNGS CTA, DIM IN BASES. ORAL CARE PER VAP. SR-ST ON THE MONITOR. LEFT RADIAL A LINE ZEROED AND BALANCED WITH GOOD WAVE FORM SEEN. PEDAL PULSES PER DOPPLER. SCDS IN USE. AFEBRILE. DOPAMINE AT SET RATE OF 3 MCG. ABD DISTENDED, FIRM. ABSENT OF BS X4. INCISIONAL DRESSINGS CDI SUPRAPUBIC AND BILATERAL GROINS. F/C PATENT WITH BLUEISH GREENISH UOP. TURNED AND REPOSITIONED. AIR OVERLAY IN USE FOR SKIN INTEGRITY. CONT CURRENT POC.
--- NOTE | 2016-12-21 20:45 | NUR ---
DR FLYNN AT BEDSIDE. NO NEW ORDERS. TURNED AND REPOSITIONED. ORAL CARE PER VAP. VSS. CONT CURRENT POC.
--- NOTE | 2016-12-21 23:30 | NUR ---
REASSESSMENT COMPLETED. SEE FLOWSHEET FOR ALL FINDINGS. SEDATED ON MECH VENT. ETT PATENT AND SECURED. SIMV SETTINGS. SPO2 97%. LUNGS CTA, DIM IN BASES. ORAL CARE PER VAP. SR-ST ON THE MONITOR. LEFT RADIAL A LINE INTACT WITH GOOD WAVE FORM SEEN. PEDAL PULSES PER DOPPLER. SCDS IN USE. AFEBRILE. DOPAMINE AT SET RATE OF 3 MCG. ABD DISTENDED, FIRM. ABSENT OF BS X4. INCISIONAL DRESSINGS CDI SUPRAPUBIC AND BILATERAL GROINS. F/C PATENT WITH BLUEISH GREENISH UOP. TURNED AND REPOSITIONED. AIR OVERLAY IN USE FOR SKIN INTEGRITY. CONT CURRENT POC.
[2016-12-22] VITALS (27 sets, daily range): BP systolic 84–131; BP diastolic 44–78
--- NOTE | 2016-12-22 01:30 | NUR ---
TURNED AND REPOSITIONED. ORAL CARE PER VAP. VSS. SR ON THE MONITOR. NO CHANGES. CONT CURRENT POC.
--- NOTE | 2016-12-22 05:12 | NUR ---
TURNED AND REPOSITIONED. ORAL CRE PER VAP. VSS. ST ON THE MONITOR. CONT CURRENT POC.
[2016-12-22 06:11] LABS: HEMATOCRIT 30.5 % (36.0-48.0); HEMOGLOBIN 10.2 g/dL (12-16); MCHC 33.4 g/dL (31.0-37.0); MCV 98.7 fL (80.0-100.0); MEAN PLATELET VOLUME 9.1 fL (7.4-10.4); RBC 3.09 10x6/uL (4.00-5.40); RDW 15.5 % (11.5-14.5); WBC 11.6 10x3/uL (4.8-10.8)
[2016-12-22 06:29] LABS: ALBUMIN 1.8 g/dL (3.4-5.0); ALKALINE PHOSPHATASE 65 U/L (46-116); ALT (SGPT) 15 U/L (10-68); CALC OSMOLALITY 278 mosm/kg (275-300); CALCIUM 7.2 mg/dL (8.5-10.1); CARBON DIOXIDE 27.1 mmol/L (21.0-32.0); CHLORIDE - SERUM 105 mmol/L (98-107); CREATININE - SERUM 0.7 mg/dL (0.6-1.3); GLUCOSE 109 mg/dL (74-106); POTASSIUM - SERUM 3.7 mmol/L (3.5-5.1); PROTEIN - SERUM 5.3 g/dL (6.4-8.2); SODIUM 139 mmol/L (136-145); UREA NITROGEN 12 mg/dL (7-18); eGFR NON AFRICAN AMERICAN 89 mL/min (90-120)
--- NOTE | 2016-12-22 07:15 | NUR ---
REPORT RECIEVED FROM TECHNOLOGY APPLICATIONS TEACHER NURSE. PT SEDATED ON VENT. FULL ASSESSMENT COMPLETE PER FLOWSHEET. WILL CONT TO ASSESS FOR CHANGES.
--- NOTE | 2016-12-22 08:00 | NUR ---
DIPROVAN TURNED OFF. RT WILL PLACE PT ON CPAP MODE.
--- NOTE | 2016-12-22 10:40 | NUR ---
BLOOD GASES TAKEN. WILL REPORT FINDINGS TO DR. SANCHEZ.
--- NOTE | 2016-12-22 11:30 | NUR ---
PT EXTUBATED AND PLACED ON 4LNC. 02 SATURATION 96%. WILL MONITOR FOR CHANGES.
--- NOTE | 2016-12-22 13:00 | NUR ---
DR. MAURICIO CALLED IN REGARDS TO TEMP BEING 101.3. STATED TO GET BLOOD CULTURES AND URINE CULTURE.
--- NOTE | 2016-12-22 13:15 | NUR ---
URINE SAMPLE OBTAINED AND SENT TO THE LAB.
--- NOTE | 2016-12-22 14:30 | NUR ---
BLOOD CULTURES COMPLETE AND SENT TO THE LAB.
--- NOTE | 2016-12-22 15:00 | NUR ---
REASSESSMENT COMPLETE. NO CHANGES NOTED.
--- NOTE | 2016-12-22 18:00 | NUR ---
SISTER AND DAUGHTER AT BEDSIDE. UPDATE PROVIDED.
--- NOTE | 2016-12-22 19:40 | NUR ---
BRAIN SURGEON AT BEDSIDE TO START US OF UPPER AND LOWER EXTREMITIES.
--- NOTE | 2016-12-22 20:55 | NUR ---
RT LOWER PORTION OF TRANSVERSE INCISION TO LOWER GROIN/ABDOMEN WITH SATURATED DRSG-SEROUS/BROWN IN COLOR. DRSG CHANGED PER REPORTS OF STERILE TECHNIQUE-CHLORAPREP/4X4'S AND MEDIPORE TAPE. GOWN CHANGED AND PULLED UP IN BED AND TURNED TO LEFT SIDE.MICKIE DRAIN WITH MINIMAL OUTPUT NOTED. MICKIE DRAIN SITE BIOPATCH CHANGED OUT.
--- NOTE | 2016-12-22 21:00 | NUR ---
FENTANYL GTT INFUSING @ 150 MCG/HR TURNED OFF.
--- NOTE | 2016-12-22 21:32 | NUR ---
COUGHING. SUCTIONED OUT MINIMAL CLEAR, THIN, WHITE SECRETIONS ORALLY PER SELF WITH YANKUER. WILL MONITOR.
--- NOTE | 2016-12-22 23:15 | NUR ---
REASSESSMENT COMPLETED. SEE ASSESSMENT FLOWSHEET. HAVING VISUAL HALLUCINATIONS. ORIENTED X4. SEEING PEOPLE OUTSIDE OF HER ROOM CELEBRATING. WILL MONITOR.
[2016-12-23] VITALS (24 sets, daily range): BP systolic 87–115; BP diastolic 43–64
--- NOTE | 2016-12-23 01:10 | NUR ---
BREATHING TREATMENT IN PROCESS. HOLLERING OUT "HELP". UPON ENTERING SAYS SHE HAS SOME SLOBBER THAN NEEDS TO BE TAKEN OFF HER LIP. SHE ATTEMPT TO USE YANKUER BUT MASK WAS IN PLACE FOR TREATMENT. MOUTH WASHED OUT. A-LINE PRESSURES NOT MATCHING CUFF WHICH IS ON THE SAME ARM. WILL MONITOR CUFF PRESSURE MORE OFTEN. WILL MONITOR.
--- NOTE | 2016-12-23 01:57 | NUR ---
A BEEPING UNFAMILIAR ALARM GOING OFF IN ROOM. PATIENT'S PERSONAL CELL PHONE BATTERY IS DYING. WANTS ME TO CALL FAMILY IN THE MORNING TO BRING HER A RN UNIT MANAGER.
--- NOTE | 2016-12-23 02:50 | NUR ---
IV ZOSYN HUNG ON PRIMARY LINE @ 12.5ML/HR. WILL MONITOR.
--- NOTE | 2016-12-23 04:00 | NUR ---
PORTABLE CHEST XRAY COMPLETED. TOLERATED WELL. REASSESSMENT COMPLETED. SEE ASSESSMENT FLOWSHEET FOR DETAILS. I & O'S COMPLETED. ORAL CARE COMPLETED. DEL ANGEL CATHETER CARE COMPLETED. TOES ARE NO LONGER CYANOTIC AND ARE WARM TO TOUCH AND PINK. DOPPLER PULSES TO PEDAL PULSES BILATERALLY.
--- NOTE | 2016-12-23 05:50 | NUR ---
ORAL CARE COMPLETED PER REQUEST.
--- NOTE | 2016-12-23 06:35 | NUR ---
TURNED AND REPOSITIONED TO RT SIDE. ORIENTED. QUESTIONS ASKED AND THEN ANSWERED.
[2016-12-23 06:41] LABS: HEMATOCRIT 26.7 % (36.0-48.0); HEMOGLOBIN 9.2 g/dL (12-16); MCH 33.7 pg (26.0-34.0); MCHC 34.5 g/dL (31.0-37.0); MCV 97.8 fL (80.0-100.0); MEAN PLATELET VOLUME 9.2 fL (7.4-10.4); RBC 2.73 10x6/uL (4.00-5.40); RDW 14.6 % (11.5-14.5)
[2016-12-23 06:43] LABS: WBC 14.6 10x3/uL (4.8-10.8)
[2016-12-23 06:56] LABS: ALBUMIN 1.5 g/dL (3.4-5.0); ALKALINE PHOSPHATASE 57 U/L (46-116); CALC OSMOLALITY 277 mosm/kg (275-300); CALCIUM 7.1 mg/dL (8.5-10.1); CARBON DIOXIDE 24.9 mmol/L (21.0-32.0); CHLORIDE - SERUM 106 mmol/L (98-107); CREATININE - SERUM 0.8 mg/dL (0.6-1.3); GLUCOSE 119 mg/dL (74-106); POTASSIUM - SERUM 3.7 mmol/L (3.5-5.1); PROTEIN - SERUM 4.9 g/dL (6.4-8.2); SODIUM 138 mmol/L (136-145); UREA NITROGEN 15 mg/dL (7-18); eGFR NON AFRICAN AMERICAN 76 mL/min (90-120)
[2016-12-23 07:10] LABS: ALT (SGPT) 19 U/L (10-68)
--- NOTE | 2016-12-23 08:08 | NUR ---
BED BATH AND LINEN CHANGE COMPLETED.
--- NOTE | 2016-12-23 08:51 | NUR ---
A-LINE DC'D PER ORDER. MANUAL PRESSURE APPLIED TIMES 5 MINUTES. CLEAR DRESSING APPLIED. PT INSTRUCTED ON S/SX OF BLEEDING TO REPORT.
--- NOTE | 2016-12-23 12:13 | NUR ---
Nutrition Follow Up: Chart reviewed. Pt with NGT to suction. Pt continues NPO. Wt gain noted. Labs reviewed. Meds noted including Lasix. Pt currently on Procalamine @ 83 ml/hr providing 488 kcal and 58 g protein. Rec advancing diet as tolerated when medically feasible. RD following.
--- NOTE | 2016-12-23 13:14 | NUR ---
PULLS 1250 ON I.S.
--- NOTE | 2016-12-23 15:20 | NUR ---
SMALL BM PRODUCED.
--- NOTE | 2016-12-23 19:00 | NUR ---
ORAL CARE PERFORMED WITH PERIDEX ORDERED
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
--- NOTE | 2016-12-23 21:20 | NUR ---
FAMILY AT BEDSIDE, UPDATE GIVEN AND QUESTIONS ANSWERED. DENIES NEEDS AT THIS TIME. VSS. CPOC.
--- NOTE | 2016-12-23 23:30 | NUR ---
REASSESSMENT COMPLETE, SEE FLOWSHEET FOR ALL FINDINGS. PT RESTING QUIETLY, VSS. COUGH/DB/IS DONE WITH GOOD EFFORT. VSS. ICE CHIPS PROVIDED. PT REPOSITIONED FOR COMFORT. ABD DSG CDI. DENIES FURTHER NEEDS AT THIS TIME. CPOC.
[2016-12-24] VITALS (24 sets, daily range): BP systolic 95–132; BP diastolic 45–70
--- NOTE | 2016-12-24 01:35 | NUR ---
PT REPOSITIONED FOR COMFORT WITH BONY PROMINENCES BRIDGED. VSS, DENIES NEEDS AT THIS TIME. RESTING COMFORTABLY. CPOC.
--- NOTE | 2016-12-24 03:33 | NUR ---
REASSESSMENT [id number], SEE FLOWSHEET FOR ALL FINDINGS. PT REPOSITIONED FOR COMFORT. VSS. ICE CHIPS PROVIDED. DENIES FURTHER NEEDS AT THIS TIME. CPOC.
[2016-12-24 05:57] LABS: HEMATOCRIT 27.1 % (36.0-48.0); HEMOGLOBIN 9.1 g/dL (12-16); LYMPHOCYTES 12.4 % (15-50); MCH 33.2 pg (26.0-34.0); MCHC 33.6 g/dL (31.0-37.0); MCV 98.9 fL (80.0-100.0); MEAN PLATELET VOLUME 8.9 fL (7.4-10.4); NEUTROPHILS 77.8 % (40-80); PLATELET COUNT 336 10x3/uL (130-400); RBC 2.74 10x6/uL (4.00-5.40); RDW 14.6 % (11.5-14.5); WBC 12.4 10x3/uL (4.8-10.8)
--- NOTE | 2016-12-24 06:00 | NUR ---
FAMILY AT BEDSIDE. QUESTIONS ANSWERED AND UPDATE GIVEN. VSS, DENIES NEEDS AT THIS TIME. CPOC.
[2016-12-24 06:14] LABS: ALBUMIN 1.7 g/dL (3.4-5.0); ANION GAP 10.8 mmol/L (8-16); BILIRUBIN - TOTAL 3.3 mg/dL (0.2-1.3); CALCIUM 7.5 mg/dL (8.5-10.1); CARBON DIOXIDE 24.7 mmol/L (21.0-32.0); CREATININE - SERUM 0.9 mg/dL (0.6-1.3); MAGNESIUM - SERUM 2.2 mg/dL (1.8-2.4); POTASSIUM - SERUM 3.5 mmol/L (3.5-5.1); PROTEIN - SERUM 5.4 g/dL (6.4-8.2)
--- NOTE | 2016-12-24 10:50 | NUR ---
PT TO CT VIA BED.
--- NOTE | 2016-12-24 11:20 | NUR ---
RETURNED FROM CT VIA BED. TOLERATED WELL.
--- NOTE | 2016-12-24 12:00 | NUR ---
STERILE DRESSING CHANGE COMPLETED.
--- NOTE | 2016-12-24 14:50 | NUR ---
P.T. AT BEDSIDE FOR EVAL.
--- NOTE | 2016-12-24 16:56 | NUR ---
PT REMAINS UP IN CHAIR.
--- NOTE | 2016-12-24 18:45 | NUR ---
BATH AND SHAMPOO GIVEN. LINEN CHANGE COMPLETED.
--- NOTE | 2016-12-24 18:48 | NUR ---
ORAL GARE PERFORMED WITH PERIDEX ORDERED
--- NOTE | 2016-12-24 19:05 | NUR ---
PT UP IN CHAIR UPON ENTERING ROOM. TRANSFERED TO BED WITH 2 PERSON ASSIST. UNSTEADY GAIT. GENERALIZED WEAKNESS PRESENT. RESPIRATIONS SHALLOW, LUNG SOUNDS CRACKLES/DIMINISHED. SPO2 95, 1L O2 VIA NC. S1S2 AUSCULTATED, PERIPHERAL PULSES PRESENT, DOPPLER TO PEDAL PULSES. BOWEL SOUNDS HYPOACTIVE. TRANSVERSE INCISION TO LOWER ABD WITH DRSG PRESENT AND CDI. DEL ANGEL CATH INTACT WITH GREEN URINE PRESENT. MICKIE TO RT LOWER ABD WITH MINIMAL BLOODY DRAINAGE PRESENT. PT POSITIONED FOR COMFORT WITH BONY PROMINENCES BRIDGED. ORAL CARE ADM. ICE CHIPS PROVIDED. VSS, DENIES FURTHER NEEDS AT THIS TIME. CALL LIGHT WITHIN PT REACH. CPOC.
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
[2016-12-25] VITALS (24 sets, daily range): BP systolic 100–132; BP diastolic 49–69
--- NOTE | 2016-12-25 00:20 | NUR ---
PT REFUSES DRSG CHANGE AT THIS TIME STATING, "DR. GUERRA WANTS TO BE HERE DURING DRESSING CHANGES TO SEE THE PROGRESSION"
--- NOTE | 2016-12-25 01:35 | NUR ---
PT RESTING QUIETLY WITH VSS, NO C/O PAIN AT THIS TIME. PT REPOSITIONED IN BED FOR COMFORT. DENIES FURTHER NEEDS AT THIS TIME. CALL LIGHT AND BEDSIDE TABLE WITHIN PT REACH. CPOC.
--- NOTE | 2016-12-25 03:30 | NUR ---
REASSESSMENT COMPLETE, SEE FLOWSHEET FOR ALL FINDINGS. PT REPOSITIONED FOR COMFORT. PARTIAL LINEN CHANGE COMPLETE. VSS, NO C/O PAIN AT THIS TIME. ICE CHIPS PROVIDED. DENIES FURTHER NEEDS AT THIS TIME. CPOC.
[2016-12-25 06:22] LABS: BASOPHILS 0.2 % (0-2); EOSINOPHILS 0.1 % (0-7); HEMATOCRIT 27.6 % (36.0-48.0); IMMATURE GRANULOCYTES 0.8 % (0-5); LYMPHOCYTES 9.2 % (15-50); MCH 32.6 pg (26.0-34.0); MCHC 32.6 g/dL (31.0-37.0); MEAN PLATELET VOLUME 9.7 fL (7.4-10.4); MONOCYTES 8.1 % (2-11); NEUTROPHILS 81.6 % (40-80); PLATELET COUNT 359 10x3/uL (130-400); RBC 2.76 10x6/uL (4.00-5.40); WBC 13.2 10x3/uL (4.8-10.8)
--- NOTE | 2016-12-25 06:35 | NUR ---
FAMILY AT BEDSIDE, UPDATE GIVEN AND QUESTIONS ANSWERED. DENIES NEEDS AT THIS TIME. CPOC.
[2016-12-25 06:37] LABS: ALBUMIN 1.8 g/dL (3.4-5.0); ANION GAP 11.3 mmol/L (8-16); CALCIUM 8.2 mg/dL (8.5-10.1); CARBON DIOXIDE 26.6 mmol/L (21.0-32.0); MAGNESIUM - SERUM 2.5 mg/dL (1.8-2.4); POTASSIUM - SERUM 3.9 mmol/L (3.5-5.1); PROTEIN - SERUM 5.7 g/dL (6.4-8.2)
--- NOTE | 2016-12-25 07:25 | NUR ---
UP TO CHAIR. PT VERY EMOTIONAL HAVING OUTBURSTS OF UNCONTROLLABLE CRYING.
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
--- NOTE | 2016-12-25 13:32 | NUR ---
PT SPEAKING ON PHONE TO SISTER.
--- NOTE | 2016-12-25 18:39 | NUR ---
ORAL CARE PERFORMED WITH PERIDEX ORDERED
--- NOTE | 2016-12-25 19:30 | NUR ---
REPORT RECVD. CARE ASSUMED. INTIAL ASSMNT COMPLETED. SEE FLOWSHEET FOR ALL FINDINGS. CONFUSED. PERRLA. RESP UNLABORED. LUNGS DIM INBASES. SPO2 96% ON RA. SR ON THE MONITOR. NGT TO LIWS. BS HYPO X4. ABDOMINAL SUPRAPUBIC INCISIONAL DRESSING CDI. PULSE PALP, WEAK. SCDS IN USE. AIR OVERLAY ON FOR SKIN INTEGRITY AND COMFORT. F/C PATENT WITH GREEN UOP. DENIES PAIN. HOB UP. C/L IN REACH. CONT CURRENT POC.
--- NOTE | 2016-12-25 23:30 | NUR ---
REASSESSMENT COMPLETED. SEE FLOWSHEET FOR ALL FINDINGS. CONFUSED. PERRLA. RESP UNLABORED. LUNGS DIM INBASES. SPO2 96% ON RA. SR ON THE MONITOR. NGT TO LIWS. BS HYPO X4. ABDOMINAL SUPRAPUBIC INCISIONAL DRESSING CDI. PULSE PALP, WEAK. SCDS IN USE. AIR OVERLAY ON FOR SKIN INTEGRITY AND COMFORT. F/C PATENT WITH GREEN UOP. DENIES PAIN. HOB UP. C/L IN REACH. CONT CURRENT POC.
[2016-12-26] VITALS (23 sets, daily range): BP systolic 108–142; BP diastolic 58–78
--- NOTE | 2016-12-26 01:15 | NUR ---
TURNED AND REPOSITIONED. VSS. NO DISTRESS. VERY CONFUSED.
--- NOTE | 2016-12-26 03:00 | NUR ---
PLACED PT IN BILATERAL SOFT WRIST RESTRAINTS PER ORDERS. VERY CONFUSED. ATTEMPTING TO PULL OUT NGT. COMBATIVE AND RESITIVE TO CARE.
--- NOTE | 2016-12-26 05:30 | NUR ---
REMAINS CONFUSED, ARGUMENTATIVE, YELLS OUT, TEARFUL, DELUSIONAL... REPOSITIONED. DEL ANGEL CARE DONE. STERILE DRESSING CHANGE TO LOWER ABDOMINAL INCISION DONE PER ORDERS. VSS. RESTRAINTS FOR SAFETY. CONT POC.
[2016-12-26 06:35] LABS: BASOPHILS 0.6 % (0-2); EOSINOPHILS 1.7 % (0-7); HEMATOCRIT 28.8 % (36.0-48.0); HEMOGLOBIN 9.5 g/dL (12-16); IMMATURE GRANULOCYTES 0.6 % (0-5); LYMPHOCYTES 16.3 % (15-50); MCH 33.1 pg (26.0-34.0); MCV 100.3 fL (80.0-100.0); MEAN PLATELET VOLUME 9.7 fL (7.4-10.4); MONOCYTES 11.9 % (2-11); NEUTROPHILS 68.9 % (40-80); RBC 2.87 10x6/uL (4.00-5.40); RDW 15.2 % (11.5-14.5); WBC 10.9 10x3/uL (4.8-10.8)
[2016-12-26 06:36] LABS: PLATELET COUNT 466 10x3/uL (130-400)
[2016-12-26 07:14] LABS: ALBUMIN 2.1 g/dL (3.4-5.0); CALCIUM 8.1 mg/dL (8.5-10.1); CREATININE - SERUM 0.9 mg/dL (0.6-1.3); MAGNESIUM - SERUM 2.3 mg/dL (1.8-2.4); PROTEIN - SERUM 5.5 g/dL (6.4-8.2)
--- NOTE | 2016-12-26 07:45 | NUR ---
PT CONFUSED. HAS PULLED OUT HER NG TUBE. THINKS SHE IS IN THE HOSPITAL TO HAVE A BABY. SHE IS YELLING OUT DISPATCH ORDERS TO CARS.
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
--- NOTE | 2016-12-26 10:42 | NUR ---
PT UP WALKING WITH PHYSICAL THERAPY. HAS BEEN UP TO TOILET TO TRY TO HAVE BM. NO RESULTS. RESTRAINTS WERE REMOVED REQUESTED BY DR GUERRA. NGT ALSO REMOVED REQUESTED BY DR GUERRA. PT MORE ORIENTED AT THIS TIME. MORNING MEDICATIONS HAVE BEEN GIVEN. LINENS ON BED CHANGED. PT UP IN CHAIR AT BEDSIDE. MONITORING IN PLACE. PT VISIBLE FROM NURSE DESK.
--- NOTE | 2016-12-26 10:48 | NUR ---
NUTRITION F/U CHART REVIEWED. PT UP WITH PHYSICAL THERAPY. CONTINUES PROCALAMINE @ 83 CC/HR. IF UNABLE TO START PO, RECOMMEND ADDING 20% INTRALIPIDS//250 CC Q 48 HOURS FOR ADDITIONAL CALORIES. RD FOLLOWING
--- NOTE | 2016-12-26 11:16 | NUR ---
NEW SAMPLE WAS NEEDED ON VANC TROUGH. LINE FLUSHED WITH 10ML SALINE BEFORE, AND NO IV'S INFUSING AT TIME OF DRAW. 10ML WASTE DRAWN AND DISCARDED. SAMPLE OBTAINED AND LINE FLUSHED WITH 10ML SALINE. FLUIDS RESTARTED.
--- NOTE | 2016-12-26 11:36 | NUR ---
CALLED SHARDA SPENCER TO UPDATE ON VANC TROUGH VALUE OF 26.5. SAYS TO GO AHEAD AND GIVE TO PATIENT.
--- NOTE | 2016-12-26 12:12 | NUR ---
HAVE ATTEMPTED TO SCAN VANC. UNABLE TO COMPLETE DUE TO DR GUERRA MAKING CHANGES TO ORDER
--- NOTE | 2016-12-26 12:57 | NUR ---
DR FLYNN HAS BEEN BY TO SEE PATIENT. REMOVED MICKIE DRAIN. REMOVED SEVERAL HELENE TO RIGHT UPPER INCISION. SITES CLEANED WITH POVIDONE IODINE AND COVERED WITH GAUZE AND HYPAFIX TAPE. CONTINUE TO MONITOR DRAINAGE AND ALERT OF ANY CHANGES.
--- NOTE | 2016-12-26 13:13 | NUR ---
PT UP FOR WALK WITH PHYSICAL THERAPY
--- NOTE | 2016-12-26 16:48 | NUR ---
PT ASSISTED UP TO BEDSIDE TOILET. CALL LIGHT IN REACH
--- NOTE | 2016-12-26 17:16 | NUR ---
PT UNABLE TO HAVE BOWEL MOVEMENT. SMALL AMOUNT OF BLOOD ON TISSUE WHEN WIPED. PT ASSISTED BACK TO BED. DRESSINGS AT ABDOMEN CHANGED DUE TO SATURATION. DEL ANGEL CARE PROVIDED PER PROTOCOL.
--- NOTE | 2016-12-26 18:08 | NUR ---
PT ASSISTED UP TO TOILET AGAIN. VERY SMALL AMOUNT OF FECES IN BASIN ALONG WITH SMALL AMOUNT OF BLOOD AND LARGE CHUNK OF MUCUS. PT SAYS HAS HISTORY OF HEMORRHOIDS. PT ASSISTED BACK TO BED. SISTER NOW AT BEDSIDE FOR VISITATION.
--- NOTE | 2016-12-26 18:49 | NUR ---
ORAL CARE PERFORMED WITH PERIDEX ORDERED
--- NOTE | 2016-12-26 19:40 | NUR ---
REC'D PT RESTING IN BED EYES CLOSED ON ROOM AIR, AWAKENS TO VERBAL STIMULI, ORIENTED TO PERSON, PLACE, AND TIME. RIGHT UPPER ARM MIDLINE WITH PLASMALYTE @ 30CC/HR, ZOSYN @ 12.5CC/HR, AND PROCALAMINE @ 83CC/HR, CM-ST @ 105, PT STATES " IF I CAN HELP OUT THERE YOU JUST WAKE ME UP AND I WILL", LOWER ABD DRSG CDI, CRITICORE DEL ANGEL PATENT WITH CONCENTRATED URINE, BILAT TEDS/SCDS INTACT, PPP BY DOPPLER, BILAT GROIN INCISIONS COVERED, AIR OVERLAY MATTRESS IN USE, SR UP X 2, VISIBLE TO NURSES STATION, CALL LIGHT IN REACH.
--- NOTE | 2016-12-26 20:35 | NUR ---
LOVENOX GIVEN TO RUQ, PT TOLERATED WELL, DENIES NEEDS.
--- NOTE | 2016-12-26 21:30 | NUR ---
PT ATTEMPTING TO GET OOB, STATES " I HAVE A PROJECT TO WORK ON", REORIENTED PT TO PLACE AND TIME, PT AGREEABLE TO TRY AND SLEEP FOR AWHILE.
--- NOTE | 2016-12-26 22:40 | NUR ---
PT AWAKE, CONCERNED ABOUT THE " WORLD", STATES " WE NEED TO FIX THOSE BEFORE THEY HURT THEMSELVES", PT DISORIENTED TO TIME, REPOSITIONED IN BED FOR COMFORT AND REORIENTED AT THIS TIME, VISIBLE TO NURSES STATION.
--- NOTE | 2016-12-26 23:25 | NUR ---
REASSESMENT COMPLETED, PT CONFUSED AT THIS TIME, PT DOWN IN BED REPOSITIONED UP IN BED FOR COMFORT, PT STATES " I AM GOING TO TRY AND TAKE A NAP" PT TALKING TO PEOPLE NOT IN ROOM, REMAINS VISIBLE TO NURSES STATION.
[2016-12-27] VITALS (27 sets, daily range): BP systolic 108–149; BP diastolic 54–76
--- NOTE | 2016-12-27 01:20 | NUR ---
PT REPOSITIONED IN BED FOR COMFORT, PT DENIES PAIN OR NEEDS, SR UP X 2, CALL LIGHT IN REACH.
--- NOTE | 2016-12-27 03:25 | NUR ---
REASSESSMENT COMPLETED, PT COMPLAINS OF BACK HURTING, PT REPOSITIONED ONTO LEFT SIDE SUPPORTED WITH PILLOW, ICE CHPS PROVIDED, VSS, WILL CONT MONITORING FOR CHANGES.
--- NOTE | 2016-12-27 05:00 | NUR ---
NO CHANGES IN STATUS, PT RESTING IN BED EYES CLOSED, RESP EVEN AND UNLABORED, VSS.
[2016-12-27 06:11] LABS: BASOPHILS 0.5 % (0-2); EOSINOPHILS 1.7 % (0-7); HEMATOCRIT 27.6 % (36.0-48.0); IMMATURE GRANULOCYTES 0.9 % (0-5); LYMPHOCYTES 16.9 % (15-50); MCHC 32.6 g/dL (31.0-37.0); MCV 101.1 fL (80.0-100.0); MEAN PLATELET VOLUME 9.4 fL (7.4-10.4); MONOCYTES 12.5 % (2-11); NEUTROPHILS 67.5 % (40-80); PLATELET COUNT 434 10x3/uL (130-400); RBC 2.73 10x6/uL (4.00-5.40); RDW 15.3 % (11.5-14.5); WBC 10.3 10x3/uL (4.8-10.8)
[2016-12-27 06:42] LABS: ALBUMIN 1.9 g/dL (3.4-5.0); ANION GAP 13.4 mmol/L (8-16); BILIRUBIN - TOTAL 1.7 mg/dL (0.2-1.3); CALCIUM 7.7 mg/dL (8.5-10.1); CARBON DIOXIDE 24.1 mmol/L (21.0-32.0); CREATININE - SERUM 0.9 mg/dL (0.6-1.3); MAGNESIUM - SERUM 2.3 mg/dL (1.8-2.4); PHOSPHOROUS 3.2 mg/dL (2.5-4.9); POTASSIUM - SERUM 3.5 mmol/L (3.5-5.1); PROTEIN - SERUM 5.6 g/dL (6.4-8.2)
--- NOTE | 2016-12-27 08:16 | NUR ---
REPORT RECEIVED. ASSUMED CARE OF PATIENT. ASSESSMENT COMPLETE. SEE FLOWSHEET FOR FINDINGS. DEL ANGEL CARE HAS BEEN PROVIDED. DEL ANGEL CHECKED FOR AIRLOCK, NONE NOTED. DRESSING REMOVED FROM ABDOMEN. DRAINAGE SEROUS IN COLOR. SATURATED DRESSINGS. INCISIONS CLEANED WITH IODINE SWABS. NEW GAUZE APPLIED AND SECURED WITH HYPAFIX TAPE. DATED AND INITIALED. DR GUERRA HAS BEEN BY TO SEE PATIENT. SHE C/O 'NOT FEELING WELL' THIS MORNING. BACK AND CHEST HURTS ALONG WITH ABDOMEN. NO N/V. IS PASSING GAS. HE HAS ORDERED XRAY. AND HAS BEEN TAKEN. PATIENT IS UP IN CHAIR AT BEDSIDE. LARGE BURP UPON MOVING FROM BED TO CHAIR. NO BM OVERNIGHT. BOWEL SOUNDS X4.
--- NOTE | 2016-12-27 09:18 | NUR ---
MORNING MEDICATIONS PROVIDED. KYLE FROM IMAGING CALLED AT 0845 TO ASK ABOUT PREMEDICATING PATIENT. ASKED FOR MEDICATIONS TO BE GIVEN AT 0900. MEDS GIVEN. ALSO ATTEMPTED TO DRAW FROM PATIENT MIDLINE WITH NO SUCCESS. LINE FLUSHES WITH EASE AND MEDICATION DRIPS HAVE NO PROBLEMS. SOHAN IN LAB NOTIFIED THEY WILL NEED TO COME DRAW SAMPLE FOR VANC TROUGH.
--- NOTE | 2016-12-27 10:18 | NUR ---
PT OFF OF UNIT FOR CTA
--- NOTE | 2016-12-27 10:23 | NUR ---
ORDERS TO HAVE NEW MID-LINE PLACED. VASCULAR ACCESS NURSE NOTIFIED OF ORDER
--- NOTE | 2016-12-27 10:35 | NUR ---
PT RETURNED TO ROOM VIA WHEELCHAIR FROM IMAGING. DEL ANGEL CATHETER RESIVIOR EMPTIED
--- NOTE | 2016-12-27 11:50 | NUR ---
PT SITTING UP IN CHAIR AT BEDSIDE. LUNCH TRAY PROVIDED. DENIES ANY OTHER NEEDS AT THIS TIME. CALL LIGHT IN REACH.
--- NOTE | 2016-12-27 14:30 | NUR ---
VASCULAR NURSE AT BEDSIDE TO PLACE NEW ACCESS LINE
--- NOTE | 2016-12-27 15:35 | NUR ---
ALL NEW LINES AND PLASMALYTE AND PROCALAMINE BOTTLES STARTED TO LEFT ARM MIDLINE ACCESS. LINES AT RIGHT ARM DISPOSED OF
--- NOTE | 2016-12-27 15:44 | HP ---
PATIENT: OPAL MATTHEWS MEDICAL RECORD: [id number] ACCOUNT: [id number] LOCATION:[facility].CV07 : 51 ADMISSION DATE: 12/14/16 HISTORY AND PHYSICAL EXAMINATION OPAL Giles (66yo, F) ID# [id number]. Date/Time12/08/2016 10:[id number] Dept.NPP_[facility] ClinicProviderEDDAMON GUERRA MDInsuranceMed Primary: [place] Insurance # : [id number] PCP : SOLOMON MERCHANT Referring Provider Name : SOLOMON MERCHANT Employer Name : RETIRED Med Secondary: FOR LIFE ( - MEDICARE SUPPLEMENT) Insurance # : [id number] Employer Name : RETIRED Prescription: ESI1 - Member is eligible. Chief Complaint Followup: Abdominal aortic aneurysm Followup: Atherosclerosis of arteries of the extremities s/p ABF with bifucated graft 10/07/14 Patient's Care Team Primary Care Provider (): SOLOMON MERCHANT: [employer], [place] [address], , Referring Provider (): SOLOMON MERCHANT: [employer], [place] [address], , Other: ROCCO LÓPEZ MD: [address] [place] [id number], , Cardiac Surgeon: GAVINO GUERRA MD: [address], [place] [address], , Rn Diabetes Educator: ELLEN ANTHONY MD: [address], [place] [address], , Patient's Pharmacies [facility] (ERX): [address] [facility], [place] [address], , [facility] (ERX): [address], [place] [address], , Vitals BP:140/80 sitting R arm 12/08/2016 10:36 amHR:100R/R 12/08/2016 10:36 amHt:5 ft 4 in 12/08/2016 10:30 amWt:170 lbs 12/08/2016 10:35 amBMI:29.2 12/08/2016 10:35 amAllergies Reviewed Allergies CODEINEPAXIL: NauseaSULFA (SULFONAMIDE ANTIBIOTICS)Medications Reviewed Medications Advair Diskus 250 mcg-50 mcg/dose powder for inhalation Inhale 1 puff(s) twice a day by inhalation route.01/06/16 filledMEDCOAdvair Diskus 500 mcg-50 mcg/dose powder for avgvpjnetp43/16/17 filledMEDCOalendronate 70 mg /21/17 filledMEDCOcephALEXin 500 mg fsgaaad08/04/17 filledMEDCOciprofloxacin 250 mg dbflex69/23/17 filledMEDCOclindamycin 300 mg hmyxvtj56/21/17 filledMEDCOcyclobenzaprine 10 mg uqdofj24/01/17 filledMEDCOfluticasone 50 mcg/actuation nasal spray,umehfsawdy45/04/17 filledMEDCOHYDROcodone 7.5 mg-acetaminophen 325 mg kybhzt35/01/17 filledMEDCOipratropium bromide 0.02 % solution for inhalation Inhale 2.5 mL 4 times a day by inhalation route.10/14/14 Tay Guerra MDlactulose 10 gram/15 mL oral abosrzgx97/23/17 filledMEDCOlevalbuterol 0.63 mg/3 mL solution for nebulization HISTORY AND PHYSICAL [id number] OPAL MATTHEWS ONE UPDRAFT EVERY 6-8 HRS12/19/14 Ellen Anthony MDlevothyroxine 50 mcg gpegaa22/15/17 filledMEDCOmetroNIDAZOLE 500 mg ewknrr39/27/17 filledMEDCOmupirocin 2 % topical wmicltcj74/11/17 filledMEDCOpredniSONE 20 mg anaxwx72/19/17 filledMEDCOProAir HFA 90 mcg/actuation aerosol eqbqzzc27/07/17 filledMEDCOsilver sulfadiazine 1 % topical cream12/24/15 filledMEDCOSingulair 10 mg tablet Take 1 tablet(s) every day by oral route.03/18/15 Kathryn Anthony MDSynthroid 25 mcg tablet Take 1 tablet(s) every day by oral route.08/13/14 Natalia ClairetraMADol 50 mg tablet Take 1 tablet(s) every 6 hours by oral route.10/14/14 Tay Guerra MDXanax 0.25 mg tablet Take 1 tablet(s) as needed by oral route.08/13/14 chenFormerly [facility] Countyphilippe DakotahVaccines Reviewed Vaccines PER PT NOT EVER TAKING Problems Reviewed Problems Hypothyroidism Nutritional disorder Tobacco dependence syndrome Atherosclerosis of arteries of the extremities Abdominal aortic aneurysm Sinusitis Allergic rhinitis Asthma Chronic obstructive lung disease Atelectasis Gastroesophageal reflux disease Ventral incisional hernia - Onset: 06/14/2016 Constipation Sciatica Complaining of - debility - malaise Chronic cough Family History Discussed Family History Father- Coronary arteriosclerosisMother- ArthritisMaternal Grandmother- TuberculosisSocial History Discussed Social History Cardiology and Meaningful Use - Optional Family history of heart disease?: Y Smoking Status: Current every day smoker Alcohol intake: None Deaf or serious difficulty hearing: N Blind or serious difficulty seeing: N Difficulty concentrating, remembering or making decisions: N Difficulty walking or climbing stairs: N Difficulty dressing or bathing: N Difficulty doing errands alone: N Surgical History Reviewed Surgical History Laparoscopic ventral hernia repair w/mesh (surg) HISTORY AND PHYSICAL [id number] OPAL MATTHEWS Other - exploratory laparoscopic sx of the pelvis Laparoscopic ventral hernia repair w/mesh (surg) - 06/29/2016 Other - 05/01/2014 - BLOCKED VEINS COMPUTER SUPPORT TECHNICIAN History (not configured) Obstetric History Obstetric History not reviewed (last reviewed 07/15/2016) Past Medical History Discussed Past Medical History Hypothyroidism: Y Kidney Disease: Y Peripheral Vascular Disease (PVD): Y Notes: 1 congenial kidney; 1 ovary; 1 fallopian tube, COPD, CAD, ULCER IN DUODENUM Documents for Discussion N/A Screening None recorded. HPI Peripheral Vascular Disease Reported by patient. Location: calf; foot; "left leg from hip to foot turned cold about a month ago. Dr. Merchant did CT" Quality: cramping; burning; aching Severity: interferes with normal activity claudication left lower extremity ROS Patient reports exercise intolerance (left lower extremity) but reports no fever, no night sweats, no significant weight gain, and no significant weight loss. She reports muscle aches and muscle weakness (left lower extremity) but reports no arthralgias/joint pain, no back pain, and no swelling in the extremities. She reports no dry eyes, no irritation, and no vision change. She reports no difficulty he aring and no ear pain. She reports no frequent nosebleeds and no nose/sinus problems. She reports no sore throat, no bleeding gums, no snoring, no dry mouth, no mouth ulcers, no oral abnormalities, and no teeth problems. She reports no chest pain, no arm p ain on exertion, no shortness of breath when walking, no shortness of breath when lying down, no palpitations, and no known heart murmur. She reports no cough, no wheezing, no shortness of breath, and no coughing up blood. She reports no abdominal pain, n o vomiting, normal appetite, no diarrhea, not vomiting blood, no nausea, and no constipation. She reports no incontinence, no difficulty urinating, no hematuria, and no increased frequency. She reports no abnormal mole, no jaundice, and no rashes. She repo r ts no loss of consciousness, no weakness, no numbness, no seizures, no dizziness, and no headaches. She reports no depression, no sleep disturbances, feeling safe in relationship, and no alcohol abuse. She reports no fatigue. She reports no swollen glands and no bruising. She reports no runny nose, no sinus pressure, no itching, no hives, and no frequent sneezing. ROS as noted in the HPI Physical Exam Patient is a 66-year-old female. Constitutional: General Appearance well nourished and developed and healthy-appearing. Level of Distress NAD. Ambulation ambulating normally. Ears, Nose, Throat: Ears grossly normal hearing. Nose no external nose lesion. Lips, Teeth, and Gums no mouth or lip ulcers. Oropharynx: moist mucous membranes. HISTORY AND PHYSICAL [id number] OPAL MATTHEWS Cardiovascular: Apical Impulse not displaced or no thrill. Heart Auscultation normal s1 and s2; no murmurs, rubs, or gallops; and RRR. Arterial Pulses no abdominal aorta bruits, femoral bruits, or popliteal bruits; femoral not palpable (left), popliteal not palpable (left), and dorsalis pedis not palpable (left); and 2+ bilateral, carotid 2+ bilateral, and femoral 2+ bilateral. Edema no edema or varicosities. Lungs: Repiratory Effort no dyspnea. Percussion no hyperresonance or dullness or flatness. Auscultation no wheezing, rhon chi, or rales / crackles and breathing sounds normal, good air movement, and CTA except as noted. Abdomen: Bowl Sounds normal. Inspection and Palpation no tenderness, guarding, masses, or rebound tenderness and soft and non-distended. Liver non-tender and no hepatomegaly. Spleen non-tender and no splenomegaly. Hernia none palpable. Musculoskeletal System: Gait And Stance normal gait and stance. Digits and Nails normal nails and no cyanosis. Joints, Bones, and Muscles normal strength and movement of all extremities. Neurologic: Cranial Nerves grossly intact. Reflexes DTRs 2+ bilaterally throughout. Sensation grossly intact. Lymph Nodes: Lymph Nodes no cervical LAD, supraclavicular LAD, axillary LAD, or inguinal LAD. Eyes: Lids and Conjunctivae no discharge or pallor and non-injected. Pupils PERRLA. Cornea grossly intact. EOM EOMI. Lens clear. Sclera non-icteric. Neck: Neck no masses, enlarged lymph nodes, or carotid bruits and supple and trachea midline. Thyroid no enlargement or nodules and non-tender. Skin: Inspection and Palpation no rash, lesions, ulcers, jaundice, or abnormal nevi. Assessment / Plan claudication left lower extremity acute Total occlusion of the left aortobifemoral graft High-grade stenosis distal to the right limb the graft 1. Abdominal aortic aneurysm I71.4: Abdominal aortic aneurysm, without rupture 2. Atherosclerosis of arteries of the extremities I70.203: Unspecified atherosclerosis of [place] arteries of extremities, bilateral legs Discussion Notes would need femoral-femoral bypass with patch angioplasty on the right she must stop smoking I have discussed her disease process with her in detail as well as the alternative methods of treatment. we discussed femoral-femoral bypass including the expected benefits an d risks which included bleeding, infection, stroke, , and the imponderables.she understands all of the above and wishes to proceed with plans. scheduled for femoral-femoral bypass HISTORY AND PHYSICAL [id number] OPAL MATTHEWS EDWARD MD at 1544 CC: [id number] DICTATION DATE: 12/08/16 1030 LONG TERM CARE ADMINISTRATOR: EWA 12/27/16 1504 ADM IN [place] [id number] [place] [address]
--- NOTE | 2016-12-27 17:20 | NUR ---
DR FLYNN BY TO SEE PATIENT. UPDATE PROVIDED. WANTS PT TO HAVE A ONE TIME DOSE OF MILK OF MAGNESIA TO HELP WITH BOWELS
--- NOTE | 2016-12-27 17:45 | NUR ---
RIGHT UPPER ARM MIDLINE ACCESS REMOVED. TIP INTACT. NO BLEEDING. SITE COVERED WITH GAUZE AND TEGADERM.
--- NOTE | 2016-12-27 19:45 | NUR ---
REC'D PT RESTING IN BED ON ROOM AIR WATCHING TV, AWAKE, ALERT, ORIENTED X 4 LEFT UPPER ARM MIDLINE CATH DRSG CDI WITH PLASMALYTE @ 30CC/HR, PROCALAMINE @ 30CC/HR, AND ZOSYN INFUSING OVER 4 HOURS, LOWER ABD DRSG INTACT WITH SEROUS DRAINAGE NOTED, GENERALIZED EDEMA, CRTICORE DEL ANGEL PATENT DRAINING YELLOW URINE, AIR OVERLAY MATTRESS IN USE, PT DENIES PAIN OR NEEDS, BED IN LOW POSITION, CALL LIGHT IN REACH.
--- NOTE | 2016-12-27 20:40 | NUR ---
EVENING MEDS GIVEN ORDERED, LOWER ABD DRSG WITH SEROUS DRAINAGE, DRSG CHANGED, CLEANED WITH BETADINE HELENE TO LOWER ABD AND BILAT GROIN CDI, INCISIONS PINK, COVERED WITH 4X4'S WITH BETADINE, 4X4'S AND MEDIPORE TAPE, PT TOLERATED WELL, DENIES FURTHER NEEDS.
--- NOTE | 2016-12-27 21:00 | NUR ---
NO VISITORS IN AT THIS TIME.
--- NOTE | 2016-12-27 22:00 | NUR ---
PT UNCOMFORTABLE IN BED, REPOSITIONED UP IN BED AND ONTO LEFT SIDE SUPPORTED WITH PILLOWS, PT REPORTS "THAT FEELS BETTER", SR UP X 2, CALL LIGHT IN REACH.
--- NOTE | 2016-12-27 23:00 | NUR ---
PT RESTING IN BED EYES CLOSED, RESP EVEN AND UNLABORED, VSS, REASSESSMENT COMPLETED, SR UP X 2, VISIBLE TO NURSES STATION
[2016-12-28] VITALS (24 sets, daily range): BP systolic 103–128; BP diastolic 42–660
--- NOTE | 2016-12-28 01:30 | NUR ---
PT AWAKE REPOSITIONED ONTO RIGHT SIDE FOR COMFORT, PT COMPLAINS OF FEELING NAUSEATED, 4MG ZOFRAN GIVEN SLOW IVP AT THIS TIME.
--- NOTE | 2016-12-28 02:30 | NUR ---
PT TEARFUL ABOUT CURRENT SITUATION, ATTEMPTED TO PROVIDE COMFORT, PT UNCOMFORTABLE IN BED, REPOSITIONED UP IN BED AND HOB ELEVATED, PT BELCHED 3-4 TIMES, REPORTS "MY STOMACH FEELS BETTER", WILL CONT TO MONITOR CLOSELY FOR CHANGES.
--- NOTE | 2016-12-28 03:10 | NUR ---
REASSESSMENT COMPLETED, LEFT UPPER ARM MIDLINE DRSG CHANGED PER PROTOCOL, PT RESTING QUIETLY IN BED, DENIES NEEDS, CALL LIGHT IN REACH
[2016-12-28 06:20] LABS: BASOPHILS 0.2 % (0-2); EOSINOPHILS 0.1 % (0-7); HEMATOCRIT 27.4 % (36.0-48.0); HEMOGLOBIN 9.1 g/dL (12-16); IMMATURE GRANULOCYTES 0.5 % (0-5); LYMPHOCYTES 13.6 % (15-50); MCH 33.3 pg (26.0-34.0); MCHC 33.2 g/dL (31.0-37.0); MCV 100.4 fL (80.0-100.0); MEAN PLATELET VOLUME 9.4 fL (7.4-10.4); MONOCYTES 10.1 % (2-11); NEUTROPHILS 75.5 % (40-80); PLATELET COUNT 483 10x3/uL (130-400); RBC 2.73 10x6/uL (4.00-5.40); RDW 15.5 % (11.5-14.5); WBC 13.1 10x3/uL (4.8-10.8)
[2016-12-28 06:36] LABS: ALBUMIN 2.3 g/dL (3.4-5.0); ANION GAP 12.8 mmol/L (8-16); BILIRUBIN - TOTAL 1.3 mg/dL (0.2-1.3); CALCIUM 7.9 mg/dL (8.5-10.1); CARBON DIOXIDE 26.6 mmol/L (21.0-32.0); MAGNESIUM - SERUM 2.6 mg/dL (1.8-2.4); PHOSPHOROUS 3.6 mg/dL (2.5-4.9); POTASSIUM - SERUM 3.4 mmol/L (3.5-5.1); PROTEIN - SERUM 6.3 g/dL (6.4-8.2)
--- NOTE | 2016-12-28 07:00 | NUR ---
Received report and assumed care of patient. Patient currently awake, alert and oriented. Patient requesting to be in sitting position in the bed. Sinus rhythm on the CM. Left upper arm midline in place, infusing. Criticore sanchez draining clear yellow urine. See shift assessment flowsheet for all findings.
--- NOTE | 2016-12-28 08:40 | NUR ---
Liu with PT walking patient. Pt tolerating well.
--- NOTE | 2016-12-28 09:10 | NUR ---
Patient has visitor at this time, remains up in chair. Vanc trough sent to lab and called to verify they received it.
--- NOTE | 2016-12-28 09:10 | NUR ---
in room to see patient. POC discussed with patient and visitor at bedside. Questions and concerns addressed.
--- NOTE | 2016-12-28 09:40 | NUR ---
Patient taken to radiology via wheelchair for an abdominal series.
--- NOTE | 2016-12-28 10:10 | NUR ---
Patient back from Radiology, Vanc initiated per order and trough reviewed.
--- NOTE | 2016-12-28 10:35 | NUR ---
in room to see patient. Requested that I change her midline dressing due to biopatch being placed incorrectly.
--- NOTE | 2016-12-28 11:45 | NUR ---
in room to see patient. POC discussed with myself and patient.
--- NOTE | 2016-12-28 12:00 | NUR ---
Patient up to repositon with assistance from Liu with Pt, back in chair, states she feels better.
--- NOTE | 2016-12-28 12:29 | NUR ---
NUTRITION F/U CHART REVIEWED. PT NOW NPO. PROCALAMINE @ 30 CC/HR PROVIDING 176 KCAL, 22 GM PROTEIN PER DAY. IF PT TO REMAIN NPO, MAY NEED TO CHANGE PROCALAMINE TO TPN AND ADD 20% INTRALIPIDS. RD FOLLOWING
--- NOTE | 2016-12-28 13:30 | NUR ---
Patient getting up with Liu with PT, walking and then getting back to bed.
--- NOTE | 2016-12-28 15:13 | NUR ---
Patient requesting comfortably in bed, no visitors at this time.
--- NOTE | 2016-12-28 16:20 | NUR ---
Missy Rae RN in room to see patient. Changed patients abdominal dressing, patient tolerated well. Call light within reach.
--- NOTE | 2016-12-28 17:33 | NUR ---
Patient vomitted 300cc dark green emesis.
--- NOTE | 2016-12-28 18:49 | NUR ---
Patients sister at bedside.
--- NOTE | 2016-12-28 19:45 | NUR ---
REPORT RECEIVED AND CARE ASSUMED. PT DID VOMIT RECORDED ON I&O SHEET. COOL CLOTH PLACED TO FORHEAD AND SUPPORT GIVEN. PT NOW DENIES FURTHER NAUSEA. SHIFT ASSESSMENT COMPLETED DOCUMENTED. ALL LINES AND FLUIDS VERIFIED AND LINES ARE TO BE CHANGED ON MONDAY. PT BEING MONITORED PER STANDARD ICU PROTOCOL WITH ALL ALARMS SET AND VERIFIED. CALL LIGHT IN PT'S GRASP AND PT DENIES FURTHER NEEDS AT THIS TIME. PLEASANT AND COOPERATIVE.
--- NOTE | 2016-12-28 21:00 | NUR ---
NO VISITORS AT THIS TIME. CONTINUES TO DENY N/V BUT REFUSES ORAL CARE AND BATHING STATING SHE IS AFRAID SHE WILL GET SICK AGAIN.
--- NOTE | 2016-12-28 23:00 | NUR ---
SHIFT REASSESSMENT COMPLETED. NO SIGNIFICANT CHANGES. LINES CHANGED WITH NEW PROCALAMINE BOTTLE, LABELED AND TIMED.
[2016-12-29] VITALS (24 sets, daily range): BP systolic 104–134; BP diastolic 52–69
--- NOTE | 2016-12-29 01:00 | NUR ---
PT SLEEPING WELL TONIGHT. VSS
--- NOTE | 2016-12-29 03:00 | NUR ---
SHIFT REASSESSMENT COMPLETED SEE FLOWSHEET. PT HAD LIQUID STOOL INCONTINENT AT FIRST AND THEN ABLE TO COMPLETE ON BEDPAN. STOOL IS DARK BROWN/BLACK IN COLOR BUT IS NOT OVERLY MALODORIS. PT STATES SHE FEELS MUCH BETTER AND HER "BELLY DOESNT FEEL TIGHT AT ALL". BS ARE INDEED MORE ACTIVE AND STRONGER. WILL CONTINUE TO MONITOR
--- NOTE | 2016-12-29 06:00 | NUR ---
PT AGAIN WITH SOME INCONTINENCE AND COMPLETING BM ON BEDPAN. PT CHEERFUL AND COOPERATIVE
--- NOTE | 2016-12-29 06:10 | NUR ---
LAB DRAWN AND SENT FOR ANALYSIS
[2016-12-29 06:33] LABS: BASOPHILS 0.4 % (0-2); EOSINOPHILS 1.2 % (0-7); HEMATOCRIT 28.6 % (36.0-48.0); HEMOGLOBIN 9.3 g/dL (12-16); IMMATURE GRANULOCYTES 0.5 % (0-5); LYMPHOCYTES 20.4 % (15-50); MCH 33.2 pg (26.0-34.0); MCHC 32.5 g/dL (31.0-37.0); MCV 102.1 fL (80.0-100.0); MEAN PLATELET VOLUME 9.2 fL (7.4-10.4); NEUTROPHILS 63.5 % (40-80); PLATELET COUNT 502 10x3/uL (130-400); RDW 15.8 % (11.5-14.5)
[2016-12-29 06:34] LABS: WBC 9.2 10x3/uL (4.8-10.8)
[2016-12-29 06:50] LABS: ALBUMIN 2.4 g/dL (3.4-5.0); ANION GAP 10.5 mmol/L (8-16); BILIRUBIN - TOTAL 1.39 mg/dL (0.2-1.3); CALCIUM 7.5 mg/dL (8.5-10.1); CARBON DIOXIDE 27.9 mmol/L (21.0-32.0); CREATININE - SERUM 1.1 mg/dL (0.6-1.3); MAGNESIUM - SERUM 2.9 mg/dL (1.8-2.4); PHOSPHOROUS 3.3 mg/dL (2.5-4.9); POTASSIUM - SERUM 4.4 mmol/L (3.5-5.1); PROTEIN - SERUM 6.1 g/dL (6.4-8.2)
--- NOTE | 2016-12-29 08:15 | NUR ---
INCONTINENT BOWEL MOVEMENT NOTED; DARK GREEN-BROWN AND LOOSE. PT CLEANED UP VIA TOTAL ARAVIND CARE ASSIST. PT ABLE TO TURN SELF INDEPENDENTLY. PT UP IN BED AT THIS TIME WATCHING TV. DENIES ANY NEEDS. DENIES ANY NAUSEA. NO ACUTE DISTRESS NOTED. WILL CONTINUE PLAN OF CARE.
--- NOTE | 2016-12-29 10:37 | NUR ---
UP IN CHAIR BESIDE BED AT THIS TIME. DENIES ANY NEEDS.WILL CONTINUE PLAN OF CARE.
--- NOTE | 2016-12-29 12:20 | NUR ---
Nutrition Follow Up: Chart reviewed. Pt continues NPO. Wt loss since admit noted. +BM 12/29/16. Labs reviewed. Meds noted including Procalamine @ 30 ml/hr providing 176 kcal and 21 g protein. If pt diet unable to advance, rec increasing Procalamine to 83 ml/hr which will provide 488 kcal and [address] following.
--- NOTE | 2016-12-29 13:16 | NUR ---
NOTED PT TO HAVE SMALL BOWEL FOLLOW THROUGH TODAY PER DR FLYNN ORDERS. NOTED THERE WERE NO ORDERS OF SUCH. CALLED DR FLYNN FOR FURTHER ORDERS. ORDER OBTAINED FOR GASTROGRAFIN SMALL BOWEL FOLLOW-THROUGH. ORDER PLACED AT THIS TIME. WILL CONTINUE PLAN OF CARE.
--- NOTE | 2016-12-29 13:47 | NUR ---
SPOKE WITH RADIOLOGY ABOUT ORDER FOR GASTROGRAFIN SMALL BOWEL FOLLOW THROUGH, NOTED PT IS ALLERGIC TO IODINATED CONTRAST MEDIA. RADIOLOGY STATED THEY WOULD CONTACT DR FLYNN FOR FURTHER ORDERS AND NOTIFY THIS NURSE. PT UP IN CHAIR BESIDE BED. DENIES ANY NEEDS. WILL CONTINUE PLAN OF CARE.
--- NOTE | 2016-12-29 14:06 | NUR ---
PER DR FLYNN SINCE PT IS ALLERGIC TO IODINATED CONTRAST MEDIA, PREMEDICATE PT AND PERFORM GASTROGRAFIN SMALL BOWEL FOLLOW-THROUGH TOMORROW. ORDER TO FOLLOW CONTRAST ALLERGY PROTOCOL OF PREDNISONE 50MG 13H, 7H, AND 1H BEFORE CONTRAST INJECTION AND ADMIN BENADRYL 50MG 1H BEFORE CONTRAST INJECTION. NO ACUTE DISTRESS NOTED. WILL CONTINUE PLAN OF CARE.
--- NOTE | 2016-12-29 14:17 | NUR ---
CONTACTED SATISH FROM RADIOLOGY TO SEE WHAT TIME THEY PLANNED ON PERFORMING GASTROGRAFIN SMALL BOWEL FOLLOW THROUGH ON PT TOMORROW BECAUSE CONTRAST ALLERGY PROTOCOL HAS SPECIFIC TIME FRAMES TO ADMIN MEDS. NOTED RADIOLOGY STATED SATISH WOULD CALL BACK TO STATE WHEN THEY WOULD BE READY FOR PT TOMORROW. WILL PLACE CONTRAST ALLERGY PROTOCOL ORDERS TO COINCIDE WITH TIME FOR GASTROGRAFIN SMALL BOWEL FOLLOW THROUGH TO BE PERFORMED. WAITING FOR CALLBACK FROM RADIOLOGY FOR A TIME.
--- NOTE | 2016-12-29 14:35 | NUR ---
PATIENT ALLERGIC TO CONTRAST. DR. FLYNN NOTIFIED. YANG SPENCER NOTIFIED TO PRE MEDICATE
--- NOTE | 2016-12-29 15:02 | NUR ---
PER SATISH WITH RADIOLOGY, GASTROGRAFIN SMALL BOWEL FOLLOW THORUGH WILL BE PERFORMED TOMORROW MORNING AT 0900. WILL ORDER THE CONTRAST ALLERGY PROTOCOL TO BEGIN AT 2000 TO COINCIDE WITH FOLLOWTHROUGH. WILL CONTINUE PLAN OF CARE.
--- NOTE | 2016-12-29 15:11 | NUR ---
NOTED PT ALLERGY TO BUDESONIDE FROM SYMBICORT; PER CONTRAST ALLERGY PROTOCOL, ORDER IS FOR PT TO RECIEVE PREDNISONE PART OF THE PROTOCOL. PTS ALLERGY TO SYMBICORT IS AGGITATION, SORE THROAT. CALLED PHARMACY TO NOTIFY OF CONCERN TO ALLERGY, SPOKE WITH PHARMACIST, YADIRA. PER YADIRA IT IS OKAY FOR PT TO RECIEVE PREDNISONE BECAUSE PT WILL PROBABLY NOT HAVE THE SAME RESPONSE FROM THAT OF THE INHAILER SYMBICORT AND WILL BE OKAY FOR PT TO RECIEVE THE PREDNISONE. ALSO SPOKE WITH PT AND SHE STATES SHE HAS TAKEN PREDNISONE RECENTLY AND HAS NO ALLERGY TO IT. ORDERS PLACED. WILL CONTINUE PLAN OF CARE.
--- NOTE | 2016-12-29 15:45 | NUR ---
ASSISTED PT BACK TO BED FROM BEDSIDE CHAIR. ALSO AT THIS TIME BED SCALE ZEROED BEFORE ASSISTING PT BACK TO BED. NOTED PT WEIGHT 177.4. WILL CONTINUE PLAN OF CARE.
--- NOTE | 2016-12-29 16:58 | NUR ---
UP IN BED AWAKE AT THIS TIME. DENIES ANY NEEDS. NO ACUTE DISTRESS NOTED. WILL CONTINUE PLAN OF CARE.
--- NOTE | 2016-12-29 18:25 | NUR ---
UP IN BED AWAKE AT THIS TIME. NO ACUTE DISTRESS NOTED. CALL LIGHT IN REACH. WILL CONTINUE PLAN OF CARE.
--- NOTE | 2016-12-29 20:00 | NUR ---
2000: Pt rec'd resting HOB 30 degrees with eyes open. Pupils MALLORIE+ bilat. Pt movex x4 extrem vs gravity. SMCx4=bilat welder oxyhydrogen. LOCx3. Denies pain, tingling, numbness, nausea, vomitting. Breathing RA RR16x with SPO2 95% MMP and no cyanosis noted. Lungs clear bilat with decreased based with auscultation. Encouraged DBC. S1S2 regular SR70's on CM with SBP 130's. Left arm PICC with approx 3" of catheter visible through transpartent dressing. Antimicrobial patch visible. Right lower quadrant of ABD with dressing intact no bleeding seen at this time. ABD soft NT BS hypoactive x4. Criticore sanchez to gravity drainage at this time with >30 cc/hr clear yellow UOP. Overlay mattress intact and inflated. SR up x2, call light in reach and pt demonstrated use, all alarms set and audible.
--- NOTE | 2016-12-29 21:00 | NUR ---
2100: Pt family here at bedside.
--- NOTE | 2016-12-29 23:00 | NUR ---
2300: Pt resting with eyes closed at this time. Zosyn completed.
[2016-12-30] VITALS (21 sets, daily range): BP systolic 118–144; BP diastolic 57–72
--- NOTE | 2016-12-30 | NUR ---
0000: Pt resting HOB 40 degrees with eyes open. Pt without c/o at this time. No change in RESP/CV/NV status. No change in IVF/UOP.
--- NOTE | 2016-12-30 03:00 | NUR ---
0300: Pt with small dark liquid BM approx 350-400cc. Bath done with CHG, [place] care completed as well. Pt repositioned for comfort and remains on overlay mattress.
--- NOTE | 2016-12-30 04:30 | NUR ---
0430: Pt easily arousable via verbal. Pt without c/o at this time. Pt denies nausea or vomitting. Pt remains SR on CM with SBP 130's. No change in IVF. UOP per I/O.
[2016-12-30 05:37] LABS: HEMATOCRIT 28.6 % (36.0-48.0); HEMOGLOBIN 9.3 g/dL (12-16); MCH 33.1 pg (26.0-34.0); MCHC 32.5 g/dL (31.0-37.0); MCV 101.8 fL (80.0-100.0); MEAN PLATELET VOLUME 9.1 fL (7.4-10.4); RBC 2.81 10x6/uL (4.00-5.40); RDW 15.8 % (11.5-14.5)
[2016-12-30 05:44] LABS: WBC 6.1 10x3/uL (4.8-10.8)
--- NOTE | 2016-12-30 06:00 | NUR ---
0600: Pt resting with eyes closed at this time. No change in pt RESP/CV/NV status. No change in IVF/UOP.
[2016-12-30 06:01] LABS: ALBUMIN 2.4 g/dL (3.4-5.0); ANION GAP 14.4 mmol/L (8-16); BILIRUBIN - TOTAL 1.2 mg/dL (0.2-1.3); CALCIUM 7.6 mg/dL (8.5-10.1); CARBON DIOXIDE 22.7 mmol/L (21.0-32.0); POTASSIUM - SERUM 4.1 mmol/L (3.5-5.1); PROTEIN - SERUM 6.3 g/dL (6.4-8.2); VANCOMYCIN - RANDOM 26.1 ug/mL (10.0-20.0)
--- NOTE | 2016-12-30 07:57 | NUR ---
ORAL CARE DONE WITH PERIDEX
--- NOTE | 2016-12-30 09:20 | NUR ---
PT TO RADIOLOGY FOR SB FOLLOW THROUGH
--- NOTE | 2016-12-30 18:43 | NUR ---
ORAL CARE PERFORMED WITH PERIDEX ORDERED
--- NOTE | 2016-12-30 19:00 | NUR ---
1900: Pt rec'd resting up in chair at this time. Pt alert and oriented. Pt assisted back to bed with minimal assistance. Complete linen change was done prior. ABD dressing changed at this time. Proximal incision site extends across ABD with zack visible. No redness or oozing seen. x2 distal ABD incisions with zack intact extending approx 8" bilaterally. Again, no bleeding, oozing, or redness is seen. Right distal incision site with some swelling noted. Pt states area "seems less sore." All incisions cleaned with CHG and covered with 4x4's and Hypafix tape. Pt repositioned after dressing change HOB 30 degrees. All monitors reestablished and alarms on.
--- NOTE | 2016-12-30 23:00 | NUR ---
2300: Pt resting with eyes closed at this time. Pt remains SR 70's on CM with SBP 130's. No change in IVF/UOP. Dressing remains intact with no s/s of bleeding, oozing, or swelling noted. SR upx3, call light in reach, and bed alarm on and audible.
[2016-12-31] VITALS (24 sets, daily range): BP systolic 106–138; BP diastolic 48–72
--- NOTE | 2016-12-31 01:20 | NUR ---
0120: Pt with small liquid BM. Partial bath done and mitali care completed. Pt repositioned for comfort with extrem off bed with pillow supports. Pt denies nausea or vomitting at this time. No change in RESP/CV/NV status or IVF/UOP.
--- NOTE | 2016-12-31 02:30 | NUR ---
0230: Pt with x2 small liquid brown BMs. Partial linen change done. Pt repositioned for comfort at this time.
--- NOTE | 2016-12-31 05:00 | NUR ---
0500: Pt with large liquid light brown BM. Linen changed and mitali care done. Pt able to turn without assistance. Pt remains SR 70's on CM with SBp 120-130. No change in IVF/UOP.
[2016-12-31 05:55] LABS: HEMATOCRIT 28.8 % (36.0-48.0); HEMOGLOBIN 9.4 g/dL (12-16); MCH 33.1 pg (26.0-34.0); MCHC 32.6 g/dL (31.0-37.0); MCV 101.4 fL (80.0-100.0); MEAN PLATELET VOLUME 8.9 fL (7.4-10.4); RBC 2.84 10x6/uL (4.00-5.40); RDW 15.7 % (11.5-14.5)
--- NOTE | 2016-12-31 06:00 | NUR ---
0600: Critical K+ called by lab. K+ replacement per electrolyte protocol started at this time. Pt without c/o at this time. Pt sister at bedside and update provided.
[2016-12-31 06:08] LABS: ALBUMIN 2.5 g/dL (3.4-5.0); ANION GAP 12.8 mmol/L (8-16); BILIRUBIN - TOTAL 1.1 mg/dL (0.2-1.3); CALCIUM 7.5 mg/dL (8.5-10.1); CREATININE - SERUM 1.1 mg/dL (0.6-1.3); MAGNESIUM - SERUM 2.6 mg/dL (1.8-2.4); PHOSPHOROUS 2.6 mg/dL (2.5-4.9); PROTEIN - SERUM 6.4 g/dL (6.4-8.2)
[2016-12-31 06:09] LABS: POTASSIUM - SERUM 2.8 mmol/L (3.5-5.1); WBC 8.6 10x3/uL (4.8-10.8)
--- NOTE | 2016-12-31 07:30 | NUR ---
LYING IN BED WATCHING TV AT THIS TIME. PT DENIES ANY NEEDS. NO ACUTE DISTRESS NOTED. WILL CONTINUE PLAN OF CARE.
--- NOTE | 2016-12-31 09:34 | NUR ---
UP IN CHAIR BESIDE BED AT THIS TIME READING. NO ACUTE DISTRESS NOTED. WILL CONTINUE PLAN OF CARE.
--- NOTE | 2016-12-31 11:32 | NUR ---
ASSISTED TO TOILET. CONTINENT BM NOTED, LIQUID YELLOW-ORANGE IN COLOR. PT UP IN CHAIR. DENIES ANY NEEDS. WILL CONTINUE PLAN OF CARE.
--- NOTE | 2016-12-31 13:24 | NUR ---
UP IN CHAIR BESIDE BED AT THIS TIME EATING LUNCH. NO ACUTE DISTRESS NOTED. ALSO NOTED ORDER TO DC DEL ANGEL TODAY, BLADDER TRAINING INITIATED AT THIS TIME. WILL CONTINUE PLAN OF CARE.
--- NOTE | 2016-12-31 15:23 | NUR ---
UP IN CHAIR BESIDE BED VISITING WITH AT THIS TIME. DENIES ANY NEEDS. NO ACUTE DISTRESS NOTED. WILL CONTINUE PLAN OF CARE.
--- NOTE | 2016-12-31 17:59 | NUR ---
[facility] DC PER ORDERS, CATHETER TIP INTACT. PT SITTING UP IN BED AWAKE AT THIS TIME. DENIES ANY NEEDS. WILL CONTINUE PLAN OF CARE.
--- NOTE | 2016-12-31 19:00 | NUR ---
PT AOX4. RESPIRATIONS UNLABORED, SPO2 95, LUNG SOUNDS CLEAR. S1S2 AUSCULTATED, PERIPHERAL PULSES PRESENT. BOWEL SOUNDS ACTIVE X4. INCISION TO ABD WITH DRSG CDI, NO S/S OF BLEEDING. VSS, DENIES PAIN AT THIS TIME. PT REPOSITIONED FOR COMFORT, TURNS WITHOUT ASSISTANCE. FRESH WATER TO BEDSIDE. IS/FLUTTER/COUGH&DB WITH GOOD EFFORT. DENIES FURTHER NEEDS AT THIS TIME. CALL LIGHT WITHIN PT REACH. CPOC.
--- NOTE | 2016-12-31 21:00 | NUR ---
SISTER AT BEDSIDE, UPDATE PROVIDED AND QUESTIONS ANSWERED. VSS, NO C/O PAIN. NO S/S OF DISTRESS AT THIS TIME. PT REPOSITIONED SELF INDEPENDENTLY AT THIS TIME. DENIES FURTHER NEEDS. CALL LIGHT WITHIN PT REACH. CPOC.
--- NOTE | 2016-12-31 23:00 | NUR ---
REASSESSMENT COMPLETE, SEE FLOWSHEET FOR ALL FINDINGS. NO ACUTE CHANGES NOTED AT THIS TIME. VSS, NO S/S OF DISTRESS. PT REPOSITIONED FOR COMFORT. DENIES NEEDS. CALL LIGHT WITHIN PT REACH. CPOC.
[2017-01-01] VITALS (26 sets, daily range): BP systolic 119–152; BP diastolic 59–89
--- NOTE | 2017-01-01 01:00 | NUR ---
PT SLEEPING QUIETLY WITH UNLABORED RESPIRATIONS. VSS, NO S/S OF PAIN OR DISTRESS. PT ALLOWED TO CONTINUE SLEEPING UNDISTURBED AT THIS TIME. CALL LIGHT WITHIN PT REACH. CPOC.
--- NOTE | 2017-01-01 03:30 | NUR ---
REASSESSMENT COMPLETE, SEE FLOWSHEET FOR ALL FINDINGS. NO ACUTE CHANGES NOTED AT THIS TIME. PT REPOSITIONED FOR COMFORT. PARTIAL LINEN CHANGE COMPLETE. DENIES PAIN. DENIES NEEDS. CALL LIGHT WITHIN PT REACH. CPOC.
--- NOTE | 2017-01-01 06:53 | NUR ---
COMPLETE BATH AND LINEN CHANGE. UP TO CHAIR. VSS, NO C/O PAIN. NO S/S OF DISTRESS. SISTER AT BEDSIDE, UPDATE PROVIDED AND QUESTIONS ANSWERED. DENIES FURTHER NEEDS AT THIS TIME. CALL LIGHT AND BEDSIDE TABLE WITHIN PT REACH. CPOC.
[2017-01-01 07:15] LABS: HEMATOCRIT 31.7 % (36.0-48.0); HEMOGLOBIN 10.2 g/dL (12-16); MCH 33.1 pg (26.0-34.0); MCHC 32.2 g/dL (31.0-37.0); MCV 102.9 fL (80.0-100.0); MEAN PLATELET VOLUME 8.9 fL (7.4-10.4); RBC 3.08 10x6/uL (4.00-5.40); RDW 15.8 % (11.5-14.5)
[2017-01-01 07:21] LABS: WBC 6.3 10x3/uL (4.8-10.8)
[2017-01-01 07:29] LABS: ALBUMIN 2.6 g/dL (3.4-5.0); ALKALINE PHOSPHATASE 60 U/L (46-116); ALT (SGPT) 23 U/L (10-68); BILIRUBIN - TOTAL 1.21 mg/dL (0.2-1.3); CALCIUM 7.6 mg/dL (8.5-10.1); CARBON DIOXIDE 23.2 mmol/L (21.0-32.0); CHLORIDE - SERUM 106 mmol/L (98-107); CREATININE - SERUM 1.2 mg/dL (0.6-1.3); GLUCOSE 98 mg/dL (74-106); MAGNESIUM - SERUM 2.3 mg/dL (1.8-2.4); PHOSPHOROUS 2.4 mg/dL (2.5-4.9); PROTEIN - SERUM 6.6 g/dL (6.4-8.2); SODIUM 139 mmol/L (136-145); eGFR NON AFRICAN AMERICAN 48 mL/min (90-120)
[2017-01-01 07:37] LABS: CALC OSMOLALITY 278 mosm/kg (275-300); POTASSIUM - SERUM 4.2 mmol/L (3.5-5.1); UREA NITROGEN 14 mg/dL (7-18)
--- NOTE | 2017-01-01 07:53 | NUR ---
UP IN CHAIR BESIDE BED AT THIS TIME EATING BREAKFAST. DENIES ANY NEEDS. NO ACUTE DISTRESS NOTED. WILL CONTINUE PLAN OF CARE.
--- NOTE | 2017-01-01 09:00 | NUR ---
PHOSPHORUS NOTED AT 2.4 WITH THIS AM LABS. PT IS ON ELECTROLTYE PROTOCOL. PT RECIEVING REPLACEMENT PER PROTOCOL. WILL CONTINUE PLAN OF CARE.
--- NOTE | 2017-01-01 09:27 | NUR ---
ASSISTED TO TOILET, CONTINENT VOID AND BOWEL MOVEMENT NOTED. BOWEL MOVEMENT NOTED TO BE DIARRHEA WITH YELLOW-ORANGE IN COLOR. NO ACUTE DISTESS NOTED. WILL CONTINUE PLAN OF CARE.
--- NOTE | 2017-01-01 12:34 | NUR ---
ASSISTED TO TOILET, CONTINENT VOID NOTED. PT UP IN CHAIR BESIDE BED EATING LUNCH. DENIES ANY NEEDS. NO ACUTE DISTRESS NOTED. WILL CONTINUE PLAN OF CARE.
--- NOTE | 2017-01-01 13:06 | NUR ---
CONTINENT VOID NOTED VIA TOILET. PT TRANSFERRED VIA STAND BY MINIMAL ASSIST. NO ACUTE DISTRESS NOTED. PT UP IN CHAIR AT THIS TIME. WILL CONTINUE PLAN OF CARE.
--- NOTE | 2017-01-01 15:52 | NUR ---
CONTINENT VOID AND BOWEL MOVEMENT NOTED AT THIS TIME. BOWEL MOVEMENT NOTED DIARRHEA. PT UP IN CHAIR BESIDE BED VISITING WITH VISITORS. DENIES ANY NEEDS. WILL CONTINUE PLAN OF CARE.
--- NOTE | 2017-01-01 17:56 | NUR ---
ASSISTED PT BACK TO BED AT THIS TIME VIA MINIMAL ASSIST. PT LYING IN BED WATCHING TV. DENIES ANY NEEDS. WILL CONTINUE PLAN OF CARE.
--- NOTE | 2017-01-01 19:00 | NUR ---
REPORT RECEIVED AND ASSESSMENT COMPLETED. PT DENIES N/V AT THIS TIME. HAD A BM EARLIER IN THE DAY. ALERT AND ORIENTED. CALL LIGHT IS IN REACH. VSS. WILL MONITOR THROUGHOUT SHIFT.
--- NOTE | 2017-01-01 21:00 | NUR ---
2100 MEDS GIVEN. PT ASSISTED TO BEDPAN. 200 ML URINE OUTPUT AT THIS TIME. VSS. WILL MONITOR
--- NOTE | 2017-01-01 23:00 | NUR ---
REASSESSMENT COMPLETED. NO CHANGES IN STATUS AT THIS TIME. DURING 2100 HOUR VANC TROUGH RESULTS CAME IN. MD NOTIFIED. NO NEW ORDERS AT THIS TIME. WILL CONTINUE TO MONITOR.
[2017-01-02] VITALS (28 sets, daily range): BP systolic 114–143; BP diastolic 50–76
--- NOTE | 2017-01-02 01:00 | NUR ---
pt assisted to bedpan for bm. no other changes in status at this time. will continue to monitor
--- NOTE | 2017-01-02 03:00 | NUR ---
REASSESSMENT COMPLETED. SEE FLOWSHEET FOR FULL DETAILS. PT HAS HAD 2 BM'S DURING SHIFT SO FAR FOR A TOTAL OF 400 ML LIQUID STOOL. NO OTHER CHANGES AT THIS TIME. VSS. WILL MONITOR
--- NOTE | 2017-01-02 05:00 | NUR ---
PT HAD URINE OUTPUT OF 200 AT THIS TIME. NO OTHER CHANGES IN STATUS. WILL MONITOR
[2017-01-02 06:36] LABS: HEMATOCRIT 29.5 % (36.0-48.0); HEMOGLOBIN 9.8 g/dL (12-16); MCH 33.8 pg (26.0-34.0); MCHC 33.2 g/dL (31.0-37.0); MCV 101.7 fL (80.0-100.0); MEAN PLATELET VOLUME 8.7 fL (7.4-10.4); RBC 2.9 10x6/uL (4.00-5.40); RDW 15.6 % (11.5-14.5); WBC 6.4 10x3/uL (4.8-10.8)
[2017-01-02 06:54] LABS: ALBUMIN 2.9 g/dL (3.4-5.0); ANION GAP 15.2 mmol/L (8-16); BILIRUBIN - TOTAL 1.1 mg/dL (0.2-1.3); MAGNESIUM - SERUM 2.3 mg/dL (1.8-2.4); POTASSIUM - SERUM 4.2 mmol/L (3.5-5.1); PROTEIN - SERUM 6.3 g/dL (6.4-8.2)
--- NOTE | 2017-01-02 07:43 | NUR ---
REPORT RECIEVED. SHIFT ASSESSMENT COMPLETE. PT AWAKE AND HAS HAD BREATHING TREATMENT. ASSISTED TO CHAIR AT BEDSIDE AND BREAKFAST TRAY PROVIDED.
--- NOTE | 2017-01-02 09:00 | NUR ---
PT HAS BEEN UP AND WALKED WITH PHYSICAL THERAPY. BACK TO CHAIR AT BEDSIDE. MORNING MEDICATIONS PROVIDED.
--- NOTE | 2017-01-02 09:22 | NUR ---
NUTRITION F/U CHART REVIEWED, PT VISIT. UP IN CHAIR TOLERATING FULL LIQUIDS. ~25% INTAKE BREAKFAST. CONTINUES PROCALAMINE @ 30 CC/HR. RD FOLLOWING
--- NOTE | 2017-01-02 11:28 | NUR ---
DR GUERRA BY TO SEE PATIENT. UNDRESSED ABDOMENAL DRESSINGS TO LOOK AT WOUND. SITE CLEANED WITH CLORHEXADINE AND COVERED WITH 4X4 GAUZE AND HYPAFIX TAPE.
--- NOTE | 2017-01-02 13:00 | NUR ---
PT UP TO TOILET. URINATED AND BOWEL MOVEMENT. DIARRHEA
--- NOTE | 2017-01-02 14:30 | NUR ---
PT UP TO TOILET.
--- NOTE | 2017-01-02 15:00 | NUR ---
PT UP TO TOILET.
--- NOTE | 2017-01-02 17:00 | NUR ---
DINNER TRAY PROVIDED. DENIES ANY OTHER NEEDS. CALL LIGHT IN REACH.
--- NOTE | 2017-01-02 17:10 | NUR ---
PT HAD BECOME TACHYCARDIC. PRINT OUTS PROVIDED TO DR GUERRA FOR REVIEW. CARDIZEM DRIP WAS ORDERED. ASKED TO START AT 5MG WITH MAX OF 10MG. HOLD DRIP IF SBP LESS THAN 90. TITRATE FOR HR 100-110, IF HR DROPS BELOW 90 STOP DRIP.
--- NOTE | 2017-01-02 18:00 | NUR ---
PT UP TO TOILET. URINATED AND BOWEL MOVEMENT. DIARRHEA.
--- NOTE | 2017-01-02 19:15 | NUR ---
REPORT RECIEVED. ASSESSMENT COMPLETE PER FLOW SHEET. VSS. PT ASSISTED TO BR 150 CC JOAQUINA URINE NOTED. BACK TO BED DENIES FURTHER NEEDS. WILL CONTINUE TO MONITOR
--- NOTE | 2017-01-02 21:00 | NUR ---
FAMILY AT BEDSIDE. VSS NO NEW CHANGES. WILL CONTINUE TO MONITOR
--- NOTE | 2017-01-02 21:13 | NUR ---
2100 MEDS ADM WIHTOUT DIFFICULTY. VSS. FAMILY AT BEDSIDE. WILL CONTINUE TO MONITOR
--- NOTE | 2017-01-02 23:11 | NUR ---
REASSESSMENT COMPLETE PER FLOW SHEET. VSS. CARDIZEM DECREASED TO 5 HR NOW 96 BP 114/50 VSS WILL CONTINUE TO MONITOR
[2017-01-03] VITALS (23 sets, daily range): BP systolic 102–127; BP diastolic 50–90
--- NOTE | 2017-01-03 00:40 | NUR ---
CARDIZEM DPP TURNED OFF
--- NOTE | 2017-01-03 01:47 | NUR ---
ASSISTED TO BEDSIDE COMODE. DENIES FURTHER NEEDS. VSS. ASSISTED BACK TO BED WILL CONTINUE TO MONITOR
--- NOTE | 2017-01-03 03:14 | NUR ---
REASSESSMENT COMPLETE PER FLOW SHEET. VSS. NO NEW CHANGES. WILL CONTINUE TO MONITOR
--- NOTE | 2017-01-03 05:10 | NUR ---
ASSISTED TO BEDSIDE COMMODE. VSS. NO NEW CHANGES. WILL CONTINUE TO MONITOR
[2017-01-03 06:31] LABS: HEMATOCRIT 30.9 % (36.0-48.0); HEMOGLOBIN 10.1 g/dL (12-16); MCH 33.2 pg (26.0-34.0); MCHC 32.7 g/dL (31.0-37.0); MCV 101.6 fL (80.0-100.0); MEAN PLATELET VOLUME 8.7 fL (7.4-10.4); RBC 3.04 10x6/uL (4.00-5.40); RDW 15.6 % (11.5-14.5); WBC 6.5 10x3/uL (4.8-10.8)
[2017-01-03 06:54] LABS: ALBUMIN 3.1 g/dL (3.4-5.0); ANION GAP 14.9 mmol/L (8-16); BILIRUBIN - TOTAL 1.09 mg/dL (0.2-1.3); CALCIUM 8.2 mg/dL (8.5-10.1); CARBON DIOXIDE 22.6 mmol/L (21.0-32.0); CREATININE - SERUM 1.1 mg/dL (0.6-1.3); POTASSIUM - SERUM 4.5 mmol/L (3.5-5.1); PROTEIN - SERUM 6.8 g/dL (6.4-8.2)
--- NOTE | 2017-01-03 07:00 | NUR ---
PT REPORT REC'D, PT CARE ASSUMED. PT AAOX4 SITTING UP IN CHAIR, NO C/O PAIN, VSS, ROOM AIR. LEFT UPPER ARM MIDLINE WITH FLUIDS INFUSING, SEE FLOW SHEET. ABOMEN/BILAT FEMORAL INCISION, DRESSING CDI. SHIFT ASSESSMENT COMPLETED, SEE FLOW SHEET. ROOM FREE OF CLUTTER, CALL LIGHT IN REACH, WILL CONTINUE TO MONITOR PT.
--- NOTE | 2017-01-03 08:15 | NUR ---
DR. GUERRA AT THE BEDSIDE
--- NOTE | 2017-01-03 08:49 | NUR ---
PHYSICAL THERAPY WITH PT, PT AMBULATED APPROX 250 FT, PT TOLERATED WELL, NO C/O PAIN, VSS, WILL CONTINUE TO MONITOR PT.
--- NOTE | 2017-01-03 09:00 | NUR ---
NO VISITORS PRESENT, PT AAOX4 SITTING UP IN CHAIR, NO C/O PAIN, VSS, WILL CONTINUE TO MONITOR PT.
--- NOTE | 2017-01-03 10:45 | NUR ---
TRANSFERRED PT FROM CHAIR TO BED FOR VASCULAR ACCESS NURSE. PT TOLERATED WELL, CALL LIGHT IN REACH, BED LOCKED IN LOWEST POSITION, WILL CONTINUE TO MONITOR PT.
--- NOTE | 2017-01-03 10:49 | NUR ---
ROSA SIN, VASCULAR ACCESS NURSE AT THE BEDSIDE
--- NOTE | 2017-01-03 11:00 | NUR ---
REASSESSMENT COMPLETED, SEE FLOW SHEET. ROOM FREE OF CLUTTER, CALL LIGHT IN REACH, WILL CONTINUE TO MONITOR PT.
--- NOTE | 2017-01-03 12:00 | NUR ---
D/C'ED LEFT UPPER ARM MIDLINE DC'ED, TIP INTACT, 4X4'S AND PRESSURE APPLIED, TEGADERM APPLIED, WILL CONTINUE TO MONITOR PT.
--- NOTE | 2017-01-03 12:05 | NUR ---
DR. MARTINEZ AT THE BEDSIDE
--- NOTE | 2017-01-03 12:36 | NUR ---
PT FAMILY AT THE BEDSIDE, ALL QUESITONS ANSWERED, VSS, WILL CONTINUE TO MONITOR PT.
--- NOTE | 2017-01-03 13:20 | NUR ---
PHYSICAL THERAPY IN WITH PT, PT AMBULATED APPROX 250 FT, PT TOLERATED WELL, WILL CONTINUE TO MONITOR PT.
--- NOTE | 2017-01-03 13:30 | NUR ---
PHYSICAL THERAPY IN WITH PT, PT AMBULATED APPROX 250 FT, PT TOLERATED WELL, WILL CONTINUE TO MONITOR PT.
--- NOTE | 2017-01-03 15:00 | NUR ---
PT SITTING IN CHAIR, RESTING WITH EYES CLOSED, NO C/O PAIN, VSS, REASSESSMENT COMPLETED, SEE FLOW SHEET. ROOM FREE OF CLUTTER, CALL LIGHT IN REACH, WILL CONTINUE TO MONITOR PT.
--- NOTE | 2017-01-03 15:44 | NUR ---
DR. GUERRA AT THE BEDSIDE
--- NOTE | 2017-01-03 15:57 | NUR ---
S/L'ED RIGHT UPPER ARM MIDLINE, PER ORDERS
--- NOTE | 2017-01-03 18:57 | NUR ---
AMBULATED PT, PT TOLERATED WELL, VSS, PT WANTING TO LAY DOWN, COMPLETE LINEN CHANGE. WILL CONTINUE TO MONITOR PT.
--- NOTE | 2017-01-03 23:20 | NUR ---
REASSESSMENT COMPLETE PER FLOW SHEET. VSS. NO NEW CHANGES. WILL CONTINUE TO MONTIOR
[2017-01-04] VITALS (24 sets, daily range): BP systolic 91–110; BP diastolic 42–72
--- NOTE | 2017-01-04 02:59 | NUR ---
REASSESSMENT COMPLETE PER FLOW SHEET. PT ASSISTED UP OOB TO BR SMALL BM 100 CC JOAQUINA URINE NOTED. PT C/O OF NAUSEA, GIVEN PRN ZOFRAN PT STATES FEELS BETTER NAUSEA R/T INDIGESTION. WILL CONTINUE TO MONITOR
--- NOTE | 2017-01-04 05:17 | NUR ---
ABD DRSG CHANGE COMPLETE 15-20 CC PURULENT DRAINAGE NOTED FROM R INCISION SITE GAUZE APPLIED DRSG CDI WILL CONTINUE TO MONIOTR
[2017-01-04 07:05] LABS: ALBUMIN 3.3 g/dL (3.4-5.0); ANION GAP 14.7 mmol/L (8-16); BILIRUBIN - TOTAL 1.01 mg/dL (0.2-1.3); CALCIUM 8.5 mg/dL (8.5-10.1); CARBON DIOXIDE 23.9 mmol/L (21.0-32.0); CREATININE - SERUM 1.2 mg/dL (0.6-1.3); POTASSIUM - SERUM 4.6 mmol/L (3.5-5.1); PROTEIN - SERUM 6.9 g/dL (6.4-8.2); VANCOMYCIN - TROUGH 36.8 ug/mL (10.0-20.0)
[2017-01-04 07:14] LABS: HEMATOCRIT 30.7 % (36.0-48.0); MCH 33.6 pg (26.0-34.0); MCHC 32.6 g/dL (31.0-37.0); RBC 2.98 10x6/uL (4.00-5.40); RDW 15.9 % (11.5-14.5); WBC 7.7 10x3/uL (4.8-10.8)
--- NOTE | 2017-01-04 07:15 | NUR ---
REPORT RECIEVED FROM GEAR GENERATOR SET UP OPERATOR NURSE. PT RESTING IN CHAIR QUIETLY. NO S/SX OF ACUTE DISTRESS NOTED AT THIS TIME. CALL LIGHT IN REACH. FULL ASSESSMENT COMPLETE PER FLOWSHEET. WILL CONT TO ASSESS.
--- NOTE | 2017-01-04 09:00 | NUR ---
NO VISITORS AT THIS TIME. VSS. WILL CONT TO ASSESS.
--- NOTE | 2017-01-04 09:42 | NUR ---
NUTRITION F/U CHART REVIEWED. NURSING REPORTS PT WITH 100% INTAKE BREAKFAST. WILL CONTINUE TO PROVIDE DIET, MONITOR INTAKE. RD FOLLOWING
--- NOTE | 2017-01-04 10:00 | NUR ---
ASSISTED TO BED FOR DRESSING CHANGE WITH JOHANNA ROBIN. INCISION CLEANSED WITH CHLORAPREP, 4X4'S APPLIED TO INCISION SITE, AND COVERED WITH MEPILEX TAPE. MIN AMOUNT OF DRAINAGE NOTED TO RIGHT LATERAL ASPECT OF INCISION. REDNESS AND SWELLING NOTED AROUND SITE, BUT IS IMPROVING.
--- NOTE | 2017-01-04 12:00 | NUR ---
ASSISTED TO BATHROOM. VOIDED 400CC OF CLEAR YELLOW URINE. NO ISSUES NOTED ON AMBULATION. CALL LIGHT PLACED IN REACH. WILL MONITOR.
--- NOTE | 2017-01-04 15:00 | NUR ---
VOIDED 500CC OF CLEAR, YELLOW URINE. ASSISTED BACK TO RECLINER. DENIES NEEDS AT THIS TIME. REASSESSMENT COMPLETE PER FLOWSHEET. WILL CONT TO ASSESS.
--- NOTE | 2017-01-04 19:15 | NUR ---
REPORT RECIEVED. ASSESSMENT COMPLET EPER FLOW SHEET. VSS. ASSISTED TO BR 400 CC JOAQUINA URINE NOTED. ASSISTED BACK TO BED. DENIES NEEDS. WILL CONTINUE TO MONITOR
--- NOTE | 2017-01-04 21:00 | NUR ---
FAMILY AT BEDSIDE. GIVEN UDPATE. DENIES NEEDS. WILL CONTINUE TO MONITOR
--- NOTE | 2017-01-04 23:30 | NUR ---
REASSESSMENT COMPLETEPER FLOW SHEET. VSS. NO NEW CHANGES. WILL CONTINUE TO MONITOR
[2017-01-05] VITALS (13 sets, daily range): BP systolic 90–119; BP diastolic 51–71
--- NOTE | 2017-01-05 00:10 | NUR ---
ASSISTED TO BR 200 CC JOAQUINA URINE NOTED.
--- NOTE | 2017-01-05 01:12 | NUR ---
ASSISTED TO BR LARGE BM NOTED.
--- NOTE | 2017-01-05 03:24 | NUR ---
REASSESSMENT COMPLETE PER FLOW SHEET. VSS. WILL CONTINUE TO MONITOR
[2017-01-05 06:25] LABS: HEMATOCRIT 30.9 % (36.0-48.0); HEMOGLOBIN 10.1 g/dL (12-16); MCH 33.3 pg (26.0-34.0); MCHC 32.7 g/dL (31.0-37.0); MEAN PLATELET VOLUME 9.5 fL (7.4-10.4); RBC 3.03 10x6/uL (4.00-5.40); RDW 15.5 % (11.5-14.5); WBC 6.3 10x3/uL (4.8-10.8)
[2017-01-05 06:52] LABS: ALBUMIN 3.3 g/dL (3.4-5.0); ANION GAP 14.2 mmol/L (8-16); BILIRUBIN - TOTAL 0.92 mg/dL (0.2-1.3); CALCIUM 8.6 mg/dL (8.5-10.1); CARBON DIOXIDE 25.6 mmol/L (21.0-32.0); CREATININE - SERUM 1.2 mg/dL (0.6-1.3); POTASSIUM - SERUM 4.8 mmol/L (3.5-5.1)
--- NOTE | 2017-01-05 07:00 | NUR ---
PT REPORT REC'D, PT CARE ASSUMED. PT AAOX4 SITTING UP IN CHAIR. NO C/O PAIN, VSS, ROOM AIR. RIGHT UPPER ARM MIDLINE S/L'ED, DRESSING CDI. PT UP TO BATHROOM WITH MINIMAL ASSIST. ABDOMEN INCISION, DRESSING CDI. SHIFT ASSESSMENT COMPLETED, SEE FLOW SHEET. ROOM FREE OF CLUTTER, CALL LIGHT IN REACH, WILL CONTINUE TO MONITOR PT.
--- NOTE | 2017-01-05 07:23 | NUR ---
DR. MARTINEZ AT THE BEDSIDE, ALL QUESTIONS ANSWERED, VSS, WILL CONTINUE TO MONITOR PT
--- NOTE | 2017-01-05 08:37 | NUR ---
PHYSICAL THERAPY IN WITH PT, PT AMBULATED APPROX 250 FEET, PT TOLERATED WELL, WILL CONTINUE TO MONITOR PT.
--- NOTE | 2017-01-05 09:15 | NUR ---
PT SISTER AT THE BEDSIDE, REQUESTING THAT "TRESSA WITH CASE MANAGEMENT GIVE ME A CALL WHEN SHE GETS UP HERE PLEASE", ALL QUESTIONS ANSWERED, WILL INFORM TRESSA WITH CASEMANAGEMENT OF PTS' FAMILY WISHES.
--- NOTE | 2017-01-05 10:57 | NUR ---
Patient Name: OPAL MATTHEWS Encounter No: [id number] : 1950 Primary Insurance: MEDICARE A & B Anticipated DC Date: 12-16-2016 Planned Disposition: Home with Home Health Vs Rehab Vs SNF External Planned Provider: [facility] - DCP follow-up note: POC discussed with Dr. Chavez's nurse, Missy. Patient may need a total of 6 weeks IV Vancomycin & will require daily abdominal wound care, which may be difficult for patient to manage at home. Discussed with patient at length. Also discussed with sister, Pearl Tripathi, at length via telephone. Both prefer inpatient rehab. Rehab screen ordered. Both patient and sister agree with SNF transfer to [facility] if she is not accepted to rehab. JAMMIE signed. Initial referral will be sent today. Patient and family in agreement with discharge plan. Case management will follow and assist as needed. Nicolle Leonard
--- NOTE | 2017-01-05 11:00 | NUR ---
PT SITTING UP IN CHAIR, NO C/O PAIN, VSS, REASSESSMENT COMPLETED, SEE FLOW SHEET. ROOM FREE OF CLUTTER, CALL LIGHT IN REACH, WILL CONTINUE TO MONITOR PT.
--- NOTE | 2017-01-05 11:30 | NUR ---
ROD GOMEZ RN FROM REHAB AT THE BEDSIDE SPEAKING WITH PT.
[2017-01-05] MEDS ORDERED: VANCOMYCIN IV (12:02)
[2017-01-05] MEDS ORDERED: LOPRESSOR25 MG PO (12:03)
--- NOTE | 2017-01-05 12:03 | NUR ---
PT FAMILY AT THE BEDSIDE, ALL QUESTIONS ANSWERED, VSS, WILL CONTINUE TO MONITOR PT.
[2017-01-05] MEDS ORDERED: MIRALAX17 GM PO (12:11)
[2017-01-05] MEDS ORDERED: LASIX40 MG PO (12:12)
--- NOTE | 2017-01-05 12:31 | NUR ---
Rehab Note- Acute Rehab Prescreen order received. Visited with the patient, sitting up in chair. Stated she is having difficulty with her left leg with pain and weakness with ambulation, states it starts spasming and pain radiates into the bone and to the hip. She is interested in [facility] acute rehab prior to discharge home. Spoke with REBECCA Valverde. Will plan to admit to [facility] Acute Rehab when ready for discharge from the acute hospital. Will continue to follow. Thank you for this referral! Odilia Rutledge RN Clinical Liaison, [facility] Rehab
--- NOTE | 2017-01-05 15:02 | NUR ---
Patient has been accepted to inpatient rehab & will transfer this afternoon.
[2017-01-05] MEDS ORDERED: LOVENOX30 MG/0.3 SC (16:19)
--- NOTE | 2017-01-05 17:37 | NUR ---
PT REPORT CALLED TO WINIFRED MART, PT TO D/C TO ROOM 1119B FOR INPATIENT REHAB.
--- NOTE | 2017-01-05 18:15 | NUR ---
TRANSFERRED PT TO INPATIENT REHAB, TOOK LG COLORED CHLORAPREP AND MEDIPORE TAPE TO SHOW REHAB NURSES SUPPLIES ORDERED BY DR. GUERRA FOR DRESSING CHANGES. ORDERS HIGHLIGHTED X3 IN D/C PAPERWORK FOR NURSES.
== END 2017-01-05 18:15 | DRG 252 ==
LOC: D.SDCHOLD 05:26 → D.CVICU 05:26 → D.SDCHOLD 07:30 → D.CVICU 11:47
PROVIDERS: Internal Medicine Cardiovascular Disease; Internal Medicine Pulmonary Disease; ADMIT Internal Medicine Cardiovascular Disease
PROC: 04CK0ZZ Extirpation of Matter from Right Femoral Artery, Open Approach (ICD-10-PCS; 2016-12-14)
PROC: 041K0JJ Bypass Right Femoral Artery to Left Femoral Artery with Synthetic Substitute, Open Approach (ICD-10-PCS; principal; 2016-12-14 07:30)
PROC: 0D9670Z Drainage of Stomach with Drainage Device, Via Natural or Artificial Opening (ICD-10-PCS; 2016-12-17)
PROC: 0DNW0ZZ Release Peritoneum, Open Approach (ICD-10-PCS; 2016-12-18)
PROC: 0YP90JZ Removal of Synthetic Substitute from Right Lower Extremity, Open Approach (ICD-10-PCS; 2016-12-18)
PROC: 0BH17EZ Insertion of Endotracheal Airway into Trachea, Via Natural or Artificial Opening (ICD-10-PCS; 2016-12-18)
PROC: 5A1945Z Respiratory Ventilation, 24-96 Consecutive Hours (ICD-10-PCS; 2016-12-18)
PROC: 0DB80ZZ Excision of Small Intestine, Open Approach (ICD-10-PCS; 2016-12-18 07:30)
DX: I70.213 Atherosclerosis of native arteries of extremities with intermittent claudication, bilateral legs (principal); K65.8 Other peritonitis; A41.9 Sepsis, unspecified organism; J96.00 Acute respiratory failure, unspecified whether with hypoxia or hypercapnia; I70.92 Chronic total occlusion of artery of the extremities; K91.72 Accidental puncture and laceration of a digestive system organ or structure during other procedure; J44.1 Chronic obstructive pulmonary disease with (acute) exacerbation; J98.11 Atelectasis; K56.60 Unspecified intestinal obstruction; I70.411 Atherosclerosis of autologous vein bypass graft(s) of the extremities with intermittent claudication, right leg; E03.9 Hypothyroidism, unspecified; F41.9 Anxiety disorder, unspecified; F17.200 Nicotine dependence, unspecified, uncomplicated; Y83.8 Other surgical procedures as the cause of abnormal reaction of the patient, or of later complication, without mention of misadventure at the time of the procedure; B96.1 Klebsiella pneumoniae [K. pneumoniae] as the cause of diseases classified elsewhere

== ENCOUNTER 2017-01-05 18:44 | Inpatient (IN) | payer MEDICARE, OTHER ==
[~2017-01-05] VITALS: Ht 162.6 cm; Wt 73.1 kg
[~2017-01-05 18:44] MED LIST changes: +LASIX40 MG PO; +LOPRESSOR25 MG PO; +LOVENOX30 MG/0.3 SC; +MIRALAX17 GM PO; +VANCOMYCIN IV
--- NOTE | 2017-01-05 19:50 | NUR ---
PT. IN BED WITH HOB UP FOR COMFORT. EXPLAINED ADMISSION PROCESS WILL BE COMPLETED SOON PT. IS PUT INTO THE COMPUTER PER THE HOSPITAL ADMISSION [employer]. PT. HAS NO VOICED NEEDS AND HER CALL LIGHT IS WITHIN REACH.
[2017-01-05 22:40] VITALS: BP 89/47; BMI 27.9
--- NOTE | 2017-01-05 23:01 | NUR ---
ADMISSION PROCESS COMPLETED. ASSISTED PT. TO BR WITH PT. USING HER OWN ROLLING WALKER WITHOUT ANY PROBLEMS. ASSISTED BACK TO BED AND POSITIONED TO COMFORT ONTO HER RIGHT SIDE. PILLOW TO BACK FOR SUPPORT PT. REPORTS SHE WILL TURN BACK OVER AND NOT REALIZE IT. NO VOICED NEEDS AND HER CALL LIGHT IS WITHIN REACH.
--- NOTE | 2017-01-05 23:15 | NUR ---
PT. IN BED WITH HOB UP FOR COMFORT AND IS LYING ON HER RIGHT SIDE WITH PILLOW AT BACK FOR SUPPORT. EYES CLOSED AND RESP. EVEN. CALL LIGHT WITHIN REACH.
--- NOTE | 2017-01-06 03:00 | NUR ---
PT. IN BED WITH HOB UP FOR COMFORT WITH EYES CLOSED AND RESP. EVEN. CALL LIGHT WITHIN REACH.
[2017-01-06 07:42] VITALS: BP 97/54
--- NOTE | 2017-01-06 08:11 | NUR ---
RESTING QUIETLY IN BED. DIFFICULT TO AROUSE THIS AM. BREAKFAST TRAY SET UP FOR PT. SAYS FEW WORDS. SLOWLY FOLLOWS SIMPLE COMMANDS. PRODUCTIVE COUGH NOTED.
[2017-01-06 08:52] LABS: BASOPHILS 1.1 % (0-2); EOSINOPHILS 7.3 % (0-7); HEMATOCRIT 32.2 % (36.0-48.0); HEMOGLOBIN 10.7 g/dL (12-16); IMMATURE GRANULOCYTES 0.5 % (0-5); LYMPHOCYTES 23.6 % (15-50); MCH 33.8 pg (26.0-34.0); MCHC 33.2 g/dL (31.0-37.0); MCV 101.6 fL (80.0-100.0); MEAN PLATELET VOLUME 9.2 fL (7.4-10.4); MONOCYTES 16.6 % (2-11); NEUTROPHILS 50.9 % (40-80); PLATELET COUNT 211 10x3/uL (130-400); RBC 3.17 10x6/uL (4.00-5.40); RDW 15.2 % (11.5-14.5); WBC 6.3 10x3/uL (4.8-10.8)
[2017-01-06 09:10] LABS: ANION GAP 15.6 mmol/L (8-16); CALCIUM 8.9 mg/dL (8.5-10.1); CARBON DIOXIDE 23.5 mmol/L (21.0-32.0); CREATININE - SERUM 1.3 mg/dL (0.6-1.3); POTASSIUM - SERUM 4.1 mmol/L (3.5-5.1)
--- NOTE | 2017-01-06 12:16 | NUR ---
SITTING IN W/C IN ROOM. DENIES NEEDS.
[2017-01-06 14:23] VITALS: Ht 162.6 cm; Wt 73.1 kg
--- NOTE | 2017-01-06 15:08 | NUR ---
WATCHING TV IN BED. CALL LIGHT IN REACH. NO DIRECT EYE CONTACT. INCONT OF URINE
--- NOTE | 2017-01-06 19:00 | NUR ---
IN BED. DAUGHTER AND GRANDSON AT BEDSIDE.
--- NOTE | 2017-01-06 21:40 | NUR ---
RESTING IN BED, EYES CLOSED.
[2017-01-06 23:00] VITALS: BP 102/53
--- NOTE | 2017-01-06 23:00 | NUR ---
ASSESSMENT AND HS MEDS COMPLETE. DRESSING CHANGED TO CLIPPED ABDOMINAL INCISIONS PER MD ORDERS. DENIES CURRENT NEEDS. EARLIER HAD SMALL AMT 20-30ML CLEAR YELLOW LIQUID EMESIS. THIS HAS RESOLVED SINCE REPORTED AT 2100. SAYS SHE FEELS BETTER WITH HOB ELEVATED. HAD BEEN RECEIVING SCHEDULED IV REGLAN WHILE IN CARDIO UNIT, BUT THIS ORDER WAS D/C'D UPON HER DISCHARGE FROM THAT UNIT ON 01/05.
--- NOTE | 2017-01-07 00:35 | NUR ---
RESTING QUIETLY IN BED, EYES CLOSED.
--- NOTE | 2017-01-07 02:30 | NUR ---
ASSISTED PATIENT UP TO BR TO URINATE, AND THEN BACK TO BED. DENIES FURTHER NEEDS.
--- NOTE | 2017-01-07 02:55 | NUR ---
DUNG VANC TROUGH FROM MIDLINE CATH AND STARTED VANCOMYCIN 1.25GM IN 100ML TO RUN OVER 1 HOUR PER PUMP VIA RIGHT MIDLINE CATH. DOSE AND VOLUME ARE PER DR. GUERRA'S SPECIFIC ORDER.
--- NOTE | 2017-01-07 04:30 | NUR ---
RESTING IN BED, EYES CLOSED.
--- NOTE | 2017-01-07 06:00 | NUR ---
GAVE PATIENT SCHEDULED PROTONIX. MIDLINE CATH WAS FLUSHED AT 0340. STANDING WEIGHT IS 162 LBS 12 OZS. ASSISTED HER UP TO BR TO URINATE, AND THEN BACK TO BED.
--- NOTE | 2017-01-07 07:07 | NUR ---
RESTING QUIETLY IN BED. NO S/S DISTRESS. CALL LIGHT IN REACH
--- NOTE | 2017-01-07 08:15 | NUR ---
PT RESTING IN BED WITH EYES OPEN CALL LIGHT IN REACH NO PROBLEMS WILL MONITER
--- NOTE | 2017-01-07 16:25 | NUR ---
PT RESTING IN BED WITH EYES OPEN CALL LIGHT IN REACH NO PROBLEMS WILL MONITER
--- NOTE | 2017-01-07 17:45 | NUR ---
PT RESTING IN BED WITH EYES OPEN CALL LIGHT IN REACH NO PROBLEMS WILL MONITER
--- NOTE | 2017-01-07 19:15 | NUR ---
PT. IN BED WITH HOB UP AND IS WATCHING TV. ASSESSMENT COMPLETED. NO VOICED NEEDS AT THIS TIME. SINGLE LUMEN MIDLINE TO RUE DRESSING C/D/I. CALL LIGHT WITHIN REACH. DRESSING TO LOWER ABD. REGION C/D/I.
--- NOTE | 2017-01-07 19:40 | NUR ---
CALLED LAB TO INQUIRE TO WHEN JAILKEEPER WAS COMING TO DRAW VANCO TROUGH AND WAS TOLD THAT THE ORDER WAS FOR 2100 AND THAT SOMEONE WOULD BE OVER AT THAT TIME. INFORMED MINISTERIO THAT VANCO TROUGH IS SUPPOSE TO BE DRAWN 1 HOUR PRIOR TO DOSE AND MINISTERIO INFORMED ME THAT IT WAS ORDERED FOR 2100 AND SOMEONE WOULD BE OVER THEN.
[2017-01-07 19:45] VITALS: BP 102/51
--- NOTE | 2017-01-07 21:20 | NUR ---
WHEN RETURNING TO NURSE'S STATION I FOUND LAB DRAW BAG ON THE DESK. I CALLED THE LAB AND INFORMED SHAMAR THAT PT. HAD A MID LINE AND NEEDED TO HAVE A PERIPHERAL STICK DONE FOR VANCO TROUGH. SHAMAR SAID OK.
--- NOTE | 2017-01-07 22:10 | NUR ---
LAB STAFF CALLED NURSE'S STATION AND INFORMED Angela HOFFMAN LPN THAT PT. WAS TO HAVE BLOOD DRAWN FROM MID LINE FOR VANCO TROUGH. MESSAGE RELAYED I WAS DOING PT'S STERILE DRESSING CHANGE.
--- NOTE | 2017-01-07 22:20 | NUR ---
ATTEMPTED TO DRAW BLOOD FROM PT'S MID LINE AND NO BLOOD RETURNED. CALLED [facility]ICA MINER BLASTING, JOHANNA SCHAFFER AND INFORMED OF SITUATION AND SHE TOLD ME TO CALL THE LAB AND HAVE THEM COME AND DRAW PT'S VANCO TROUGH. CALLED LAB AND SPOKE TO SHAMAR AND INFORMED HIM OF NEED TO COME AND DRAW PT'S LAB FOR VANCO TROUGH.
--- NOTE | 2017-01-07 22:39 | NUR ---
FINANCIAL PLANNING CONSULTANT HERE TO DRAW RAMILA DUQUE.
--- NOTE | 2017-01-07 23:13 | NUR ---
PT. IN BED WITH HOB UP FOR COMFORT AND IS WATCHING TV. NO VOICED NEEDS AND HER CALL LIGHT IS WITHIN REACH.
--- NOTE | 2017-01-08 03:10 | NUR ---
PT. IN BED WITH HOB UP FOR COMFORT WITH EYES CLOSED AND RESP. DEEP AND EVEN. CALL LIGHT WITHIN REACH.
--- NOTE | 2017-01-08 07:40 | NUR ---
PT SITTING UP EATING BREAKFAST AND DENIES NEEDS AT THIS TIME. BED LOW. CL IN REACH.
[2017-01-08 09:34] VITALS: BP 91/45
--- NOTE | 2017-01-08 10:00 | NUR ---
PT AM MEDS ADMINISTERED. PT LOWER ABD DRESSING IS C/DI/. PT ASSISTED TO BR AND IS NOW BACK IN BED. NO FURTHER NEEDS VOICED. WCTM.
--- NOTE | 2017-01-08 18:19 | NUR ---
PT RESTING ,DENIES NEEDS. FAMILY AT BEDSIDE. WCTM.
--- NOTE | 2017-01-08 19:15 | NUR ---
PT. SITTING ON THE SIDE OF HER BED TALKING W/DAUGHTER. DAUGHTER HAS NOW LEFT FOR THE EVENING. ASSESSMENT COMPLETED. NO VOICED NEEDS AT THIS TIME. CALL LIGHT WITHIN REACH.
[2017-01-08 19:45] VITALS: BP 115/58
--- NOTE | 2017-01-08 20:10 | NUR ---
PT. CALLED ME INTO ROOM AND REPORTED SHE THINKS HER IV SITE IS LEAKING. MARKED OUTER EDGE OF DRESSING WITH MARKER TO SEE IF IT IS WHERE SHE THINKS IT IS LEAKING FROM. WILL CHECK ON IT IN A FEW MINUTES.
--- NOTE | 2017-01-08 20:20 | NUR ---
RECHECKED MIDLINE DRESSING AND IT HAS NEW DRAINAGE ON DRESSING. WILL INFORM NURSE IN AM SO THAT I.R. NURSE CAN ASSESS MIDLINE BEFORE NEXT DOSE OF IV'S IS DUE.
--- NOTE | 2017-01-08 22:22 | NUR ---
WRAPPED RUE WHERE MIDLINE IS LOCATED WITH LULA AND SECURED WITH TAPE TO COLLECT ANY DRAINAGE FROM SITE. PT. TOLERATED PROCEDURE WITHOUT C/O. CALL LIGHT REMAINS WITHIN HER REACH.
--- NOTE | 2017-01-08 23:09 | NUR ---
PT. IN BED WITH HOB UP SLIGHTLY FOR COMFORT. EYES CLOSED AND RESP. EVEN. CALL LIGHT WITHIN REACH.
--- NOTE | 2017-01-09 03:06 | NUR ---
PT. IN BED WITH HOB UP FOR COMFORT WITH EYES CLOSED AND RESP. EVEN. CALL LIGHT WITHIN REACH.
[2017-01-09 06:49] LABS: BASOPHILS 1.2 % (0-2); EOSINOPHILS 5.8 % (0-7); HEMATOCRIT 30.8 % (36.0-48.0); IMMATURE GRANULOCYTES 0.2 % (0-5); LYMPHOCYTES 28.6 % (15-50); MCH 33.1 pg (26.0-34.0); MCHC 32.5 g/dL (31.0-37.0); MEAN PLATELET VOLUME 9.9 fL (7.4-10.4); MONOCYTES 13.7 % (2-11); NEUTROPHILS 50.5 % (40-80); PLATELET COUNT 221 10x3/uL (130-400); RBC 3.02 10x6/uL (4.00-5.40); RDW 15.3 % (11.5-14.5); WBC 6.5 10x3/uL (4.8-10.8)
[2017-01-09 07:09] LABS: ANION GAP 13.6 mmol/L (8-16); CALCIUM 8.6 mg/dL (8.5-10.1); CREATININE - SERUM 1.2 mg/dL (0.6-1.3); POTASSIUM - SERUM 3.6 mmol/L (3.5-5.1)
[2017-01-09 08:00] VITALS: BP 93/49
--- NOTE | 2017-01-09 09:52 | NUR ---
PATIENT ADMITTED TO [facility] FROM ACUTE FLOOR. DME AT HOME IS A [facility], BEDSIDE COMMODE AND NEBULIZER. SHE HAS USED [facility] IN THE PAST AND WOULD LIKE TO USE THEM AGAIN.DR. GUERRA IS PATIENT PROVIDER AND IF UNABLE TO GO HOME AT DISCHARGE PATIENT WOULD LIKE TO GO TO [facility]
--- NOTE | 2017-01-09 09:56 | NUR ---
PT MIDLINE LEAKING. ANTIMICROBIAL DISC APPEARS TO BE SATURATED. ROSA DOWN TO ASSESS. ROSA STATES TO CALL BING TO SEE ABOUT A PERIPHERAL. BING CONTACTED. GAVE BING LEE'S PHONE NUMBER TO DISCUSS. TM.
--- NOTE | 2017-01-09 10:45 | NUR ---
SINGLE STAPLE TO LEFT UPPER ABD HAD WORKED ITSELF INTERMEDIATE OUT AND WAS CATCHING ON CLOTHING. STAPLE REMOVED AND STERI STRIP IN PLACE. INCISION WELL APPROXIMATED.
--- NOTE | 2017-01-09 11:34 | NUR ---
SPOKE WITH CATHY. LEE TO COME AND RE-SITE MIDLINE. WILL RUN VANC DOSE IN NEW SITE. ORDERS ARE TO KEEP VANC ON SAME SCHEDULE.
--- NOTE | 2017-01-09 13:17 | NUR ---
PT MIDLINE TO RUE REMOVED. MIDLINE WAS 10 CM IN LENGTH. 4X4 AND TEGADERM DRESSING APPLIED. ROSA IN ROOM AT THIS TIME TO PLACE NEW MIDLINE.
--- NOTE | 2017-01-09 13:59 | NUR ---
PT VANC BEING ADMINISTERED AT THIS TIME FROM THIS MORNING TO LUE MIDLINE.
--- NOTE | 2017-01-09 19:00 | NUR ---
IN BED, AWAKE. DENIES NEEDS.
--- NOTE | 2017-01-09 21:00 | NUR ---
RESTING IN BED, EYES CLOSED.
[2017-01-09 21:45] VITALS: BP 91/53
--- NOTE | 2017-01-09 22:20 | NUR ---
ASSESSMENT AND HS MEDS COMPLETE. CHANGED DRESSING TO ABDOMINAL INCISIONS PER CURRENT ORDERS. PATIENT DENIES NEEDS.
--- NOTE | 2017-01-09 23:45 | NUR ---
RESTING IN BED, EYES CLOSED. NO DISTRESS EVIDENT.
--- NOTE | 2017-01-10 02:15 | NUR ---
RESTING QUEITLY IN BED, EYES CLOSED.
--- NOTE | 2017-01-10 04:30 | NUR ---
RESTING QUIETLY, RESPIRATIONS UNLABORED.
--- NOTE | 2017-01-10 06:00 | NUR ---
PATIENT REMAINS IN BED. DRESSED WITH SET-UP.
--- NOTE | 2017-01-10 07:42 | NUR ---
SITTING UP IN BED RESTING COMFORTABLY. NO S/SX OF DISTRESS. CALL LIGHT IN REACH. WILL CONTINUE TO MONITOR
[2017-01-10 08:24] VITALS: BP 107/50
--- NOTE | 2017-01-10 10:01 | NUR ---
SITTING UP IN BED WATCHING TV. C/O LEFT UPPER ARM MIDLINE BEING TENDER/BURNING. UNABLE TO DRAW FROM LINE. WILL CALL VASCULAR NURSE ROSA AND ADVISE. NO OTHER CONCERNS VOICED WILL CONTINUE TO MONITOR. CALL LIGHT WITHIN REACH, BED LOW
--- NOTE | 2017-01-10 11:04 | NUR ---
SPOKE TO VASCULAR NURSE ROSA IN REGARDS TO LEFT UPPER MIDLINE BEING TENDER AND BURNING. ROSA STATES THAT GIVE IT ANOTHER DAY TO HEAL AND ALSO IT IS OK THAT YOU CAN NOT DRAW FROM THE MIDLINE, ROSA STATES THIS IS NORMAL. FOLLOW UP WITH ROSA TOMORROW IF PT CONTINUE TO COMPLAIN OF BEING TENDER.
--- NOTE | 2017-01-10 12:06 | NUR ---
LYING IN BED RESTING COMFORTABLY. FAMILY AT BEDSIDE. NO S/SX OF DISTRESS. CALL LIGHT WITHIN REACH. WILL CONTINUE TO MONITOR
--- NOTE | 2017-01-10 14:29 | NUR ---
LYING IN BED RESTING COMFORTABLY. EASILY AROUSED WITH STIMULI. CALL LIGHT WITHIN REACH. WILL CONTINUE TO MONITOR
--- NOTE | 2017-01-10 16:56 | NUR ---
SITTING UP IN W/C OFFERS NO COMPLAINTS. CALL LIGHT WITHIN REACH. WILL CONTINUE TO MONITOR
--- NOTE | 2017-01-10 19:30 | NUR ---
PATIENT IN BED, AWAKE. DENIES NEEDS.
--- NOTE | 2017-01-10 19:30 | NUR ---
PATIENT IN BED, AWAKE. DENIES NEEDS.
[2017-01-10 20:04] VITALS: BP 115/54
--- NOTE | 2017-01-10 21:55 | NUR ---
IN BED, AWAKE. NO COMPLAINTS AT THIS TIME.
--- NOTE | 2017-01-10 22:10 | NUR ---
ASSISTED PATIENT TO AMBULATE TO . PATIENT NOTED SHE APPEARS TO BE "BREAKING OUT" IN A RASH ON UPPER CHEST AND NECKLINE. VERIFIED RASH AND CHECKED HER BACK AND TRUNK AND FOUND RED FINE SLIGHLTLY PAPULAR RASH DEVELOPING GENERALLY. WHILE PATIENT WAS ON COMMODE, PLACE A CALL TO DR. THOMAS'S CELLPHONE AND LEFT A MESSAGE REGARDING THE RASH AND THAT I WAS HOLDING VANCOMYCIN UNTIL HE RETURNED MY CALL.
--- NOTE | 2017-01-10 22:25 | NUR ---
RETURNED TO ROOM AND ASSISTED PATIENT BACK INTO BED. FLUSHED LEFT ARM MIDLINE CATHETER WHICH REMAINS PATENT TO FLUSH BUT WILL NOT DRAW BLOOD. AREA AROUND PUNCTURE SITE IS REDDENED AND PUFFY AND GENERALLY TENDER. WHICH HAS BEEN REPORTED TO IV NURSE THE PAST 2 DAYS. IV NURSE WANTS TO BE CALLED TOMORROW IF SITE REMAINS TENDER. GAVE PATIENT SCHEDULED LOPRESSOR. ASSESSMENT COMPLETE. RETURNED TO NURSES STATION WAS ABOUT TO PLACE A 2ND CALL TO DR. THOMAS WHEN HE CALLED BACK, GIVING ORDERS TO D/C VANCOMYCIN IV AND TO GIVE PATIENT BENADRYL 25MG PO Q 6HRS STARTING LIA. SAYS HE WILL ADDRESS THE ISSUE WITH DR. GUERRA IN THE MORNING.
--- NOTE | 2017-01-10 23:45 | NUR ---
RETURNED TO ROOM AND CHANGED ABDOMINAL DRESSING PER CURRENT ORDERS USING STERILE TECHNIQUE. SEE DRESSING CHANGE P/I.
--- NOTE | 2017-01-11 00:05 | NUR ---
GAVE PATIENT NEWLY ORDERED BENDRYL 25MG PO FOR ITCHING. HAD TO AWAIT VISUAL MERCHANDISING MANAGER FOR PYXIS OVERRIDE FROM RESIDENTIAL DISPENSER IT IS NOT ON THE REHAB OVERRIDE LIST.
--- NOTE | 2017-01-11 02:15 | NUR ---
RESTING QUIETLY IN BED, EYES CLOSED. WAS UP TO BR WITH ASSIST @ 0125.
--- NOTE | 2017-01-11 04:45 | NUR ---
REMAINS IN BED, RESTING QUIETLY.
--- NOTE | 2017-01-11 06:15 | NUR ---
ASSISTED PATIENT UP TO BR AND BACK TO BEDSIDE WEIGHT IS 161 LBS AND 0 OZS. NO CHANGE FROM YESTERDAY.
[2017-01-11 06:16] LABS: BASOPHILS 1.1 % (0-2); EOSINOPHILS 7.6 % (0-7); HEMATOCRIT 30.5 % (36.0-48.0); IMMATURE GRANULOCYTES 0.2 % (0-5); LYMPHOCYTES 30.8 % (15-50); MCH 33.2 pg (26.0-34.0); MCHC 32.8 g/dL (31.0-37.0); MCV 101.3 fL (80.0-100.0); MEAN PLATELET VOLUME 8.8 fL (7.4-10.4); MONOCYTES 13.6 % (2-11); NEUTROPHILS 46.7 % (40-80); PLATELET COUNT 193 10x3/uL (130-400); RBC 3.01 10x6/uL (4.00-5.40); RDW 14.9 % (11.5-14.5); WBC 5.5 10x3/uL (4.8-10.8)
[2017-01-11 06:42] LABS: ANION GAP 13.8 mmol/L (8-16); CALCIUM 8.3 mg/dL (8.5-10.1); CARBON DIOXIDE 24.9 mmol/L (21.0-32.0); CREATININE - SERUM 1.3 mg/dL (0.6-1.3); POTASSIUM - SERUM 3.7 mmol/L (3.5-5.1)
--- NOTE | 2017-01-11 08:44 | NUR ---
PT ASSISTED BACK TO BED FROM WHEELCHAIR. PT BRUSED TEETH AND HAIR IN BATHROOM WITH NO ASSISTANCE WHILE SITTING IN WHEELCHAIR. PT AKSED "CAN YOU HAND ME MY CLOTHES SO I CAN GET READY FOR THEARPY". PT HANDED CLOTHES AND IS SITTING IN BED CHANGING. NO CONCERNS VOICED. WILL CONTIUE TO MONITOR. CALL LIGHT WITHIN REACH.
[2017-01-11 08:51] VITALS: BP 107/55
--- NOTE | 2017-01-11 09:54 | NUR ---
PT IS STILL INT THERAPY ROOM WITH PHYSICAL THERPIST MAKENNA DEL CID
--- NOTE | 2017-01-11 11:18 | NUR ---
PT IS STILL IN THEARPY ROOM WITH PHYSICAL THERAPIST
--- NOTE | 2017-01-11 13:38 | NUR ---
PT IS SITTING UP IN WHEELCHAIR WATCHING TV. VOICES "IM DOIGN GREAT, I GET TO GO HOME IN 2 DAYS" WITH A SMILE ON HER FACE. BOX ALARM IS ON. BED IS LOW,SIDE [id number], CALL LIGHT WITHIN REACH. WILL CONTINUE TO MONITOR
--- NOTE | 2017-01-11 15:00 | NUR ---
RECIEVED REPORT FROM JOAQUINA AT THIS TIME.
--- NOTE | 2017-01-11 15:32 | NUR ---
ASSISTED TO TOILET AT THIS TIME. CONTINENT VOID AND BOWEL MOVEMENT NOTED, LOOSE BROWN. PT UP IN BED AT THIS TIME. DENIES ANY NEEDS. NO ACUTE DISTRESS NOTED. WILL CONTINUE PLAN OF CARE.
--- NOTE | 2017-01-11 15:36 | NUR ---
RECIEVED REPORT AT THIS TIME FROM JOAQUINA.
--- NOTE | 2017-01-11 16:24 | NUR ---
NOTED PT HAD BEEN ON VANC PER DR CHILDRESS ORDERS AND WAS TO BE ON VANC FOR 6 WEEKS. LAST NIGHT PT REPORTED ITCHY RASH. WHEN ASSESSING RASH IT IS NOTED TO APPEAR BRIGHT RED AND BLOTCHY AND APPEARS AT BILATERAL ARMS, CHEST, AND BACK. DR THOMAS HAD STOPPED VANCOMYCIN WITH NOTE STATING "SUSPECTED ALLERGY WITH FINE RED ITCHY RASH." DR THOMAS'S NOTE ALSO STATED "WILL SEE IF DR GUERRA WANTS TO REPLACE VANC WITH POSSIBLE INVANZ OR MERREM." WHEN RECIEVING REPORT, NOTED THIS ITEM WAS NOT ADDRESSED WITH DR GUERRA, SPOKE WITH CHARGE NURSE AND NOTED ITEM WAS NOT ADRESSED AND REQUIRED ATTENTION. ALSO NOTED PT TO BE DISCHARGED HOME ON 01/13. PAGED DR CHILDRESS NURSE BING AND RECIEVED CALLBACK AND NOTIFIED BING OF SITUATION. BING ACKNOWLEDGED PT TO BE DISCHAGED ON 01/13 AND STATED SHE WOULD SPEAK WITH DR GUERRA TO SEE WHAT HE WANTS TO DO REGARDING THE VANCOMYCIN. SHE ALSO STATED PT WILL NEED HOME HEALTH TO HELP HER WITH HER ABDOMINAL INCISION DRESSING CHANGED. SPOKE WITH CASE MANAGEMENT AND NOTED PT WILL HAVE HOME HEALTH SET UP AFTER DISCHARGED TO HELP WITH DRESSING CHANGES. ALSO NOTED REGARDING VANC THAT PTS LAST DOSE WAS ON 01/10 AT 0312, PT HAS BEEN RECIEVING VANC 1.25 GM IV Q18H. NO ACUTE DISTRESS NOTED AT THIS TIME. PT RESTING IN BED, RESPIRATIONS STEADY AND UNLABORED. AWAKENS EASILY WHEN SPOKEN TO. WAITING FOR BING'S CALLBACK TO BE NOTIFIED OF ANY NEW ORDERS REGARDING THE VANC. WILL CONTINUE PLAN OF CARE.
--- NOTE | 2017-01-11 17:59 | NUR ---
RECIEVED CALLBACK FROM DR CHILDRESS NURSEBING. ORDERS RECIEVED FOR WOUND CULTURE TO RT SIDE OF ABDOMINAL INCISION SITE. ALSO ORDER RECIEVED FOR AMOXICILLIN 875MG PO BID. WILL CONTINUE PLAN OF CARE.
--- NOTE | 2017-01-11 20:00 | NUR ---
PT. IN BED WITH HOB UP FOR COMFORT AND IS WATCHING TV. NO VOICED NEEDS. ASSESSMENT COMPLETED. CALL LIGHT WITHIN REACH.
[2017-01-11 20:45] VITALS: BP 115/45
--- NOTE | 2017-01-11 23:50 | NUR ---
PT. IN BED WITH HOB UP FOR COMFORT WITH EYES CLOSED AND RESP. EVEN. CALL LIGHT WITHIN REACH.
--- NOTE | 2017-01-12 03:17 | NUR ---
PT. IN BED WITH HOB UP FOR COMFORT WITH EYES CLOSED AND RESP. EVEN. CALL LIGHT CONTINUES TO BE WITHIN REACH.
--- NOTE | 2017-01-12 07:37 | NUR ---
SITTING UP IN BED WATCHING TV. NO S/SX OF DISTRESS. ALERT AND ORIENTED X4. OFFERS NO COMPLAINTS. CALL LIGHT WITHIN REACH. WILL CONTINUE TO MONITOR
--- NOTE | 2017-01-12 10:03 | NUR ---
RD follow up note. Pt reports she is going home tomorrow, requesting yogurt on tray at each meal. Pt without other complaints. Continues to be on a regular diet, consuming 75-100% of meals. weight fairly stable. Chart reviewed. noted loose BM on 01/11 however pt did not complain about this today. Will place note to put yougurt on tray. Will continue to monitor while pt here.
--- NOTE | 2017-01-12 10:30 | NUR ---
SPOKE WITH DR. MONROE ROBIN NURSE AND SHE SAID DR. GUERRA WOULD LIKE FOR PATIENT TO GO A SKILLED FACILITY TO CARE FOR A WOUND WHILE IT IS DRAINING. SPOKE WITH PATIENT AND SHE SAID SHE WILL DO WHAT DR. GUERRA SAYS. A REFERRAL HAS BEEN SENT TO [facility] FOR [facility] ADMISSION ON 01/16/17. WILL CONTINUE TO FOLLOW WITH PATIENT
--- NOTE | 2017-01-12 12:22 | NUR ---
EATING LUNCH. DENIES NEEDS OR C/O.
--- NOTE | 2017-01-12 12:33 | NUR ---
SITTING UP IN WHEELCHAIR EATING LUNCH. OFFERS NO COMPLAINTS. DENIES PAIN. CALL LIGHT WITHIN REACH. WILL CONTINUE TO MONITOR
--- NOTE | 2017-01-12 14:36 | NUR ---
IN THERAPY GYM WITH PHYSICAL THERAPY. NO S/SX OF DISTRESS
[2017-01-12 19:58] VITALS: BP 126/55
--- NOTE | 2017-01-12 20:02 | NUR ---
PT IS RESTING IN BED WITH EYES OPEN. ALERT AND ORIENTED X 3. DENIES PAIN OR DISCOMFORT. DRESSING TO ABD IS CDI. LEFT ARM MIDLINE IV NOTED. VSS. SR'S ARE UP X 2 IN BED. CALL LIGHT AND BEDSIDE TABLE ARE WITHIN EASY REACH.
--- NOTE | 2017-01-12 21:59 | NUR ---
DRESSING TO ABD INCISIONS CHANGED USING STERILE TECHNIQUE. MOD AMOUNT OF ALMOST CLEAR SEROUS DRAINAGE NOTED.
--- NOTE | 2017-01-12 23:51 | NUR ---
RESTING QUIETLY IN BED WITH EYES CLOSED.
--- NOTE | 2017-01-13 04:23 | NUR ---
RESTING IN BED WITH EYES CLOSED. NO S/S OF DISTRESS OBSERVED. MIDLINE IV PATENT. CALL LIGHT AND OVERBED TABLE IN REACH.
--- NOTE | 2017-01-13 05:56 | NUR ---
PT UP AND DRESSED FOR THERAPY. NO ACUTE NEEDS VOICED.
[2017-01-13 06:11] LABS: BASOPHILS 0.8 % (0-2); EOSINOPHILS 8.9 % (0-7); HEMOGLOBIN 9.9 g/dL (12-16); IMMATURE GRANULOCYTES 0.3 % (0-5); LYMPHOCYTES 28.2 % (15-50); MCH 33.3 pg (26.0-34.0); MEAN PLATELET VOLUME 9.5 fL (7.4-10.4); MONOCYTES 13.2 % (2-11); NEUTROPHILS 48.6 % (40-80); PLATELET COUNT 254 10x3/uL (130-400); RBC 2.97 10x6/uL (4.00-5.40); RDW 14.7 % (11.5-14.5); WBC 6.2 10x3/uL (4.8-10.8)
[2017-01-13 07:11] LABS: ANION GAP 12.2 mmol/L (8-16); CALCIUM 8.8 mg/dL (8.5-10.1); CARBON DIOXIDE 27.2 mmol/L (21.0-32.0); CREATININE - SERUM 1.3 mg/dL (0.6-1.3); POTASSIUM - SERUM 3.4 mmol/L (3.5-5.1)
[2017-01-13 09:00] VITALS: BP 114/56
--- NOTE | 2017-01-13 09:29 | NUR ---
AM MEDS ADMINISTERED. PT DENIES NEEDS AT THIS TIME. WCTM.
--- NOTE | 2017-01-13 10:34 | NUR ---
PT C/O CHEST PAIN. VS NORMAL. BING CONTACTED. EKG ORDERED. TYLENOL GIVEN. WCTM.
--- NOTE | 2017-01-13 14:53 | NUR ---
PT PARTICIPATING IN THERAPY AT THIS TIME. PT DENIES NEEDS. WCTM.
--- NOTE | 2017-01-13 19:20 | NUR ---
RESTING IN BED, AWAKE. DENIES CURRENT NEEDS.
[2017-01-13 21:25] VITALS: BP 115/58
--- NOTE | 2017-01-13 21:25 | NUR ---
ASSESSMENT AND HS MEDS COMPLETE. DEFERRED DRESSING CHANGE PENDING ACQUISITION OF CHLORHEXIDINE SCRUBBER.
--- NOTE | 2017-01-14 00:05 | NUR ---
CHANGED ABDOMINAL DRESSING PER CURRENT ORDERS AND ASSISTED PATIENT UP TO BR, AND THEN BACK TO BED.
--- NOTE | 2017-01-14 02:30 | NUR ---
C/O INABILITY TO SLEEP. GAVE PATIENT XANAX 0.125MG PO.
--- NOTE | 2017-01-14 04:40 | NUR ---
RESTING QUIETLY IN BED, EYES CLOSED.
--- NOTE | 2017-01-14 06:00 | NUR ---
GAVE PATIENT SCHEDULED MEDS. ASSISTED HER TO AMBULATE SBA TO BR TO URINATE, AND THEN BACK AGAIN.
--- NOTE | 2017-01-14 07:00 | NUR ---
RECHECK FSBS 98.
[2017-01-14 08:18] VITALS: BP 109/56
--- NOTE | 2017-01-14 09:53 | NUR ---
PT AM MEDS ADMINISTERD. PT C/O HEMORRHOID PAIN. PREP H ORDERED. WCJORDANA.
--- NOTE | 2017-01-14 15:53 | NUR ---
PT RESTING IN BED, DENIES NEEDS. WCTM.
--- NOTE | 2017-01-14 19:00 | NUR ---
IN BED, AWAKE. SISTER AT BEDSIDE VISITING.
[2017-01-14 19:50] VITALS: BP 125/46
--- NOTE | 2017-01-14 19:50 | NUR ---
ASSESSMENT AND HS MEDS COMPLETE. GAVE PATIENT BENADRYL 25MG PO FOR GENERAL ITCHING FROM BODY RASH. HELD LOPRESSOR FOR LOW DBP OF 125/46. WILL GIVE PATIENT AMOXICILLIN 875MG PO WHEN DELIVERED BY OFFICE COPY SELECTOR.
--- NOTE | 2017-01-14 21:10 | NUR ---
AMOXICILLIN HAS BEEN GIVEN TO PATIENT PO. DENIES CURRENT NEEDS. FALL RISK SCORE IS 2. INFORMED PATIENT THAT IF SHE CHOOSES SHE MAY AMBULATE TO BR INDEPENDENTLY, BUT THAT IF SHE FEELS UNSTEADY, SHE IS TO CALL ME TO ACCOMPANY HER.
--- NOTE | 2017-01-14 22:35 | NUR ---
RESTING QUIETLY IN BED, EYES CLOSED. SHE HAS HAD DIFFICULTY SLEEPING SINCE LAST NIGHT, WILL LET HER REST AND CHANGE ABDOMINAL DRESSING THE NEXT TIME SHE IS UP TO COMMODE.
--- NOTE | 2017-01-15 00:15 | NUR ---
RESTING IN BED, EYES CLOSED. APPEARS COMFORTABLE.
--- NOTE | 2017-01-15 02:05 | NUR ---
RESTING IN BED ON RIGHT SIDE. APPEARS COMFORTABLE.
--- NOTE | 2017-01-15 04:30 | NUR ---
IN BED, EYES CLOSED. NO EVIDENT DISCOMFORT.
--- NOTE | 2017-01-15 05:00 | NUR ---
GAVE PATIENT SCHEDULED MEDS WELL TYLENOL 325MG PO FOR PAIN LEVEL OF 2/10 IN ABDOMINAL INCISIONS. GAVE HER BENADRYL 25MG PO FOR ITCHING AND CHANGED HER ABDOMINAL DRESSING WHICH HAD BEEN DEFERRED FROM 2100 LAST NIGHT TO ALLOW PATIENT TO SLEEP UNINTERRUPTED SHE HAD SLEPT POORLY THE PREVIOUS NIGHT. WILL GET HER WEIGHT AND SET HER UP TO WASH UP WHILE ON COMMODE THE NEXT TIME SHE IS UP TO THE BR.
--- NOTE | 2017-01-15 05:55 | NUR ---
RESTING IN BED, EYES CLOSED. RESPIRING QUIETLY.
--- NOTE | 2017-01-15 07:38 | NUR ---
PT RECEIVED UP IN BED WITH EYES OPEN. STATES SHE HAS BEEN UP WASHING FACE A SINK. NO COMPLAINTS OF PAIN NOTED AT THIS TIME. NO QUESTIONS OR CONCERNS NOTED AT THIS TIME. CALL LIGHT IN REACH.
--- NOTE | 2017-01-15 07:39 | NUR ---
PT IN BED WITH EYES OPEN. STATES JUST FINISHED WASHING UP AT SINK. NO COMPLAINTS OR CONCERNS NOTED AT THIS TIME. CALL LIGHT IN REACH.
[2017-01-15 09:40] VITALS: BP 99/53
--- NOTE | 2017-01-15 11:35 | NUR ---
PT IN BED WITH EYES CLOSED AND CHEST RISING. EASILY AROUSED TO VERBAL STIMUILI. NO CONCERNS OR QUESTIONS NOTED. CALL LIGHT IN REACH.
--- NOTE | 2017-01-15 16:09 | NUR ---
PT IN BED WITH EYES CLOSED AND CHEST RISING. EASILY AROUSED TO VERBAL STIMULI. NO CONCERNS OR COMPLAINTS MADE KNOWN. CALL LIGHT IN REACH.
--- NOTE | 2017-01-15 16:11 | NUR ---
PT IN BED WITH EYES CLOSED AND CHEST RISING. EASILY AROUSED VERBAL STIMUILI. NO CONCERN NOTE AT THIS TIME. CALL LIGHT IN REACH.
--- NOTE | 2017-01-15 18:18 | NUR ---
RESTING QUIETLY IN BED. DENIES NEEDS. CALL LIGHT IN REACH
--- NOTE | 2017-01-15 19:00 | NUR ---
PATIET IN BED. SISTER JUST ARRIVED FOR A VISIT. NO C/O AT THIS TIME.
[2017-01-15 21:00] VITALS: BP 142/55
--- NOTE | 2017-01-15 21:00 | NUR ---
ASSESSMENT AND HS MEDS COMPLETE. GAVE PATIENT SCHEDULED HS MEDS AND FLUSHED LEFT ARM MIDLINE CATH. CHANGED ABDOMINAL DRESSING PER CURRENT ORDERS. SEE DRESSING CHANGE P/I.
--- NOTE | 2017-01-16 00:05 | NUR ---
RESTING IN BED, EYES CLOSED. APPEARS COMFORTABLE.
--- NOTE | 2017-01-16 02:00 | NUR ---
RESTING QUIETLY, EYES CLOSED.
--- NOTE | 2017-01-16 04:00 | NUR ---
REMAINS IN BED, EYES CLOSED. RESTING QUIETLY.
--- NOTE | 2017-01-16 05:40 | NUR ---
GAVE PATIENT SCHEDULED SYNTHROID AND FLUSHED HER LEFT ARM MIDLINE CATH. STANDING WEIGHT IS 162 LBS 8 OZS TODAY. AMBULATED TO TO URINATE AND JUST RETURNED TO BED. DENIES NEEDS.
[2017-01-16 05:42] LABS: BASOPHILS 0.9 % (0-2); EOSINOPHILS 9.6 % (0-7); HEMATOCRIT 30.2 % (36.0-48.0); HEMOGLOBIN 9.9 g/dL (12-16); IMMATURE GRANULOCYTES 0.4 % (0-5); LYMPHOCYTES 30.9 % (15-50); MCHC 32.8 g/dL (31.0-37.0); MCV 100.7 fL (80.0-100.0); MEAN PLATELET VOLUME 9.3 fL (7.4-10.4); MONOCYTES 10.7 % (2-11); NEUTROPHILS 47.5 % (40-80); PLATELET COUNT 284 10x3/uL (130-400); RDW 14.7 % (11.5-14.5); WBC 5.5 10x3/uL (4.8-10.8)
[2017-01-16 05:56] LABS: ANION GAP 10.5 mmol/L (8-16); CALCIUM 8.5 mg/dL (8.5-10.1); CARBON DIOXIDE 26.9 mmol/L (21.0-32.0); CREATININE - SERUM 1.3 mg/dL (0.6-1.3); POTASSIUM - SERUM 3.4 mmol/L (3.5-5.1)
[2017-01-16 08:23] VITALS: BP 113/54
--- NOTE | 2017-01-16 09:15 | NUR ---
PT RESTING IN BED WITH EYES OPEN CALL LIGHT IN REACH NO PROBLEMS WILL MONITER
--- NOTE | 2017-01-16 12:30 | NUR ---
PT COMPLAINING OF RIGHT LEG ITCHING LEG HAS RED SPLOTCHY AREA GIVEN BENEDRYL PER DRS ORDER WILL MONITER
--- NOTE | 2017-01-16 15:05 | NUR ---
SPOKE WITH SHARDA AT PATIENT REQUEST REGARDING ABD WOUND. SHARDA WILL COME AND ASSESS AND SPEAK WITH DR. GUERRA REGARDING DISCHARGE PLANS. SHE HAS BEEN ACCEPTED TO [facility] . WILL CONTINUE TO FOLLOW WITH PATIENT
--- NOTE | 2017-01-16 17:21 | NUR ---
PT RESTING IN BED WITH EYES OPEN CALL LIGHT IN REACH WILL MONITER
--- NOTE | 2017-01-16 19:00 | NUR ---
IN BED, SISTER VISITING AT BEDSIDE.
--- NOTE | 2017-01-16 20:30 | NUR ---
CONTINUES IN BED, AWAKE. DENIES NEEDS.
[2017-01-16 20:41] VITALS: BP 117/52
--- NOTE | 2017-01-16 21:40 | NUR ---
ASSESSMENT AND HS MEDS COMPLETE. GAVE HER BENADRYL 25 MG PO FOR ITCHING. HELD LOPRESSOR FOR LOW BP OF 117/52. OLD HER I WILL RETURN TO CHANGE HER DRESSING AFTER PASSING MEDS TO REMAINDER OF MY ASSIGNED PATIENTS. SAID SHE UNDERSTANDS.
--- NOTE | 2017-01-16 22:40 | NUR ---
ABDOMINAL DRESSING CHANGE COMPLETE. DENIES CURRENT NEEDS. SEE DRESSING CHANGE P/I.
--- NOTE | 2017-01-17 | NUR ---
RESTING QUIETOY IN BED, EYES CLOSED.
--- NOTE | 2017-01-17 02:15 | NUR ---
REMAINS IN BED, EYES CLOSED. APPEARS COMFORTABLE.
--- NOTE | 2017-01-17 04:00 | NUR ---
RESTING QUIETLY ON RIGHT SIDE. NO DISTRES EVIDENT.
--- NOTE | 2017-01-17 06:30 | NUR ---
TOOK SCHEDULED MEDS. STANDING WEIGHT 160 LBS AND 12 OZS. DENIES CURRENT NEEDS.
--- NOTE | 2017-01-17 07:41 | NUR ---
PT RESTING IN BED WITH EYES OPEN CALL LIGHT IN REACH NO PROBLEMS WILL MONITER
[2017-01-17 08:04] VITALS: BP 101/54
--- NOTE | 2017-01-17 08:45 | NUR ---
NURSE SHARDA CABRALES.DRSG CHANGED TO RLQ INCISION.LUIS WELL.DISCHARGING HOME TODAY.
--- NOTE | 2017-01-17 10:47 | NUR ---
PATIENT DISCHARGING HOME WITH FAMILY. [facility] WILL RESUME CARE OF PATIENT AND DO DAILY DRESSING CHANGES TO ABD. SPOKE WITH IKE.NO NEW DME NEEDED AT THIS TIME. DR. MERCHANT 01/19/17 @ 10:30, DR. GUERRA 02/09/17 @ 10:30, PATIENT CHOICE FOR HOME HEALTH AND [facility] FORM SIGNED, EXPLAINED AND FILED IN CHART.
[2017-01-17] MEDS ORDERED: AMOXICILLIN875 MG PO (11:27)
--- NOTE | 2017-01-17 11:28 | RHP ---
PATIENT: OPAL MATTHEWS MEDICAL RECORD: [id number] ACCOUNT: [id number] LOCATION:[id number] : 52 ADMISSION DATE: 01/05/17 REHABILITATION HISTORY AND PHYSICAL EXAMINATION POST ADMISSION PHYSICIAN EXAMINATION Post-Admission Physical Examination and History and Physical DATE OF ADMISSION: 01/05/2017 ADMITTING DIAGNOSIS: Critical illness myopathy. HISTORY OF PRESENT ILLNESS: The patient was admitted to inpatient rehabilitation for critical illness myopathy. She is a 66-year-old female that was admitted to the [facility] secondary to peripheral vascular disease and poor circulation to her lower extremities. She had been recently debilitated to the point that she was unable to ambulate. A week prior to acute hospital admit, she underwent a fem-fem bypass on December 14. The patient has nausea, vomiting and abdominal pain for a couple days with abdominal distention and tenderness in her left upper quadrant. She was found to have an intestinal obstruction, tachycardia and leukocytosis. She was taken back to the OR on December 19 and found out that the patient had gangrenous bowel and possible perforation and peritonitis. There was a concern for contamination of the graft. The graft was removed. The patient has a past medical history of COPD. She had an extended stay in the CV ICU. She was on the ventilator from December 14 to December 22. She slowly progressed as well, being followed by pulmonary, cardiology and infectious disease. She is maintaining her O2 sat. She is having bowel movements, continues on telemetry, has surgical incisions to her lower abdominal area. She was living at home with her , daughter and sister. She was moderately independent with the use of a rolling walker at times and mobility up to a week prior to acute hospital stay, was independent with her ADLs. She wears glasses. She has proximal weakness, stating that she has difficulty arising from bed to chair. She is also currently noted ambulate 250 feet with 30% assist and use a rolling walker. She states that she has been having increased pain in her left lower extremity, found that she also has weakness and instability and feels that she needs to have frequent rest breaks. She is currently moderate assist for ADLs and moderate assist with mobility. She needs to have intense acute rehab to continue to improve to be able to progress and discharge back home with her family and hopefully get back to her prior level of functioning or better if possible. COMORBIDITIES: In this patient include vascular graft infection shock, solitary kidney, bibasilar atelectasis, hypokalemia, sinusitis, leukocytosis, low albumin, anemia, debility, Leriche syndrome, chronic diastolic aortic occlusion, hypothyroidism, status post aortobifemoral bypass surgery, acute small bowel obstruction, fever, sepsis, respiratory failure, peritonitis, peripheral vascular disease and intestinal perforation with peritonitis. PAST MEDICAL HISTORY: Significant for COPD, hypothyroidism, peripheral vascular disease, aortofemoral bypass, history of frequent UTIs, history of duodenal ulcer and constipation, chronic backache and osteoporosis. PAST SURGICAL HISTORY: Includes cholecystectomy, laparoscopic surgery, aortobifemoral bypass and herniorrhaphy. HISTORY AND PHYSICAL [id number] OPAL MATTHEWS ALLERGIES: IODINATED CONTRAST AND SULFA DRUGS. CURRENT MEDICATIONS: Include vancomycin, she is getting dosed by the pharmacy; MiraLax 17 grams in 8 ounces of water daily, Synthroid 50 mcg daily, furosemide 40 mg daily, Advair 1 inhalation b.i.d., Lovenox 30 mg subQ daily, aspirin chewable 81 mg daily, metoprolol 25 mg b.i.d., Xopenex 0.63 mg q.6 hours p.r.n. She is on Xanax 0.125 mg daily, albuterol 1 puff q.6 hours and Flonase nasal spray 1 spray daily. HABITS: No alcohol or tobacco use. FAMILY HISTORY: Noncontributory. SOCIAL HISTORY: The patient hopes to return back home with her family and get back to her prior level of functioning. REVIEW OF SYSTEMS: GENERAL: Does complain of some weakness and fatigue. HEENT: Denies cold, cough, or congestion. CARDIOVASCULAR: Denies chest pain. LUNGS: Does complain of occasional shortness of breath. PHYSICAL EXAMINATION: VITAL SIGNS: Stable, afebrile. GENERAL: Elderly female in no acute distress, alert upon exam. HEENT: Normocephalic and atraumatic. Mucosa moist. NECK: Supple. No lymphadenopathy. LUNGS: Clear at this time. HEART: Regular rate and rhythm. ABDOMEN: Soft. EXTREMITIES: She does have noted surgical scars to her lower abdominal wall. NEUROLOGIC: Seems intact. LABORATORY DATA: Her white count was 6.3, H&H 10.7 and 32.2, her MCV is elevated at 101.6. Her platelet count is 211. Her sodium is 137, potassium 4.1, BUN and creatinine of 13 and 1.3 and blood sugar is noted to be 131. ASSESSMENT: This is a 66-year-old female patient admitted to rehab with a working diagnosis of critical illness myopathy. The patient has potential to make improvement. We instituted the following multidisciplinary therapies including, but not limited to physical, occupational, respiratory, speech, nutritional services, prosthetics and orthotics. Given her complex condition and risk of further medical complications, rehabilitation services cannot be provided at a lower level of care such as a residential facility. PLAN: 1. Admit to [facility] rehab for intensive inpatient therapy to include the following disciplines: A. Physical therapy to improve gait, all transfer skills and bed mobility to a modified independent level. B. Occupational therapy to improve activities of daily living to a modified independent level. C. Case management to assist with discharge planning and placement options. D. Nutrition to assist with nutritional needs. E. Rehabilitation nursing to assist in monitoring the patient's underlying HISTORY AND PHYSICAL [id number] OPAL MATTHEWS medical conditions and to assist with any type of bowel or bladder management. 2. The patient's current medication and medical care will be continued. 3. The patient will be placed on standard fall precautions. 4. The patient's estimated length of stay is approximately 7-10 days. 5. Discuss this patient during care team staff meeting this week. TRANSINT:[id number] Voice Confirmation ID: [id number] DOCUMENT ID: [id number] RAYO notes whether there has been none or any medical/functional change since admission: - NO CHANGE SINCE PRESCREEN. RAYO attests patient continues to be appropriate for IRF: - CONTINUES TO BE APPROPRIATE. VERONIKA THOMAS MD at 1128 CC: [id number] DICTATION DATE: 01/06/17 1118 DEBURRING TECHNICIAN: 01/06/17 1209 ADM IN [id number] [place] [address]
--- NOTE | 2017-01-17 12:43 | NUR ---
PT MIDLINE CATHETER DC'D INTACT, 13CM IN LENGTH. PRESSURE DRESSING APPLIED. PT TOLERATED WELL.
[2017-01-17] MEDS ORDERED: XANAX0.25 MG PO (12:51)
--- NOTE | 2017-01-17 13:00 | NUR ---
PT DISCHARGED TO HOME DISCHARGE SUMMARY AND DISCHARGE MEDS REVIEWED WITH PT ALL MEDS CALLED TO [facility] ON [address] NO PROBLEMS WILL MONITER
== END 2017-01-17 14:30 | disposition home health service (06) | DRG 91 ==
LOC: D.REHAB 18:44
PROVIDERS: ADMIT Emergency Medicine
DX: G72.81 Critical illness myopathy (principal); A41.9 Sepsis, unspecified organism; J96.90 Respiratory failure, unspecified, unspecified whether with hypoxia or hypercapnia; K65.9 Peritonitis, unspecified; K63.1 Perforation of intestine (nontraumatic); Q60.0 Renal agenesis, unilateral; J98.11 Atelectasis; I74.09 Other arterial embolism and thrombosis of abdominal aorta; K56.60 Unspecified intestinal obstruction; T81.19XD Other postprocedural shock, subsequent encounter; E87.6 Hypokalemia; J32.9 Chronic sinusitis, unspecified; D72.829 Elevated white blood cell count, unspecified; D64.9 Anemia, unspecified; R53.81 Other malaise; E03.9 Hypothyroidism, unspecified; Z95.1 Presence of aortocoronary bypass graft; I73.9 Peripheral vascular disease, unspecified; J44.9 Chronic obstructive pulmonary disease, unspecified; I49.8 Other specified cardiac arrhythmias

== ENCOUNTER → 2017-09-22 15:07 | Outpatient (CLI) | payer MEDICARE, OTHER ==
[2017-01-06 14:23] VITALS: BMI 27.6
[~2017-09-22 15:07] MED LIST changes: +AMOXICILLIN875 MG PO
== END | disposition home or self-care (01) ==
LOC: D.CT 15:07
DX: K43.2 Incisional hernia without obstruction or gangrene (principal)

== ENCOUNTER 2017-11-07 07:11 | Emergency (ER) | payer MEDICARE, OTHER ==
[~2017-11-07] VITALS: Ht 162.6 cm; Wt 78.2 kg
[2017-11-07 07:14] VITALS: Ht 162.6 cm; Wt 78.2 kg
[2017-11-07] MEDS ORDERED: BACTROBAN CREAM15 GM TOPICAL (07:26)
[2017-11-07 07:42] VITALS: BP 164/082
== END 2017-11-07 07:44 | disposition home or self-care (01) ==
LOC: D.ER 07:11
DX: B00.1 Herpesviral vesicular dermatitis (principal); J44.9 Chronic obstructive pulmonary disease, unspecified; F17.200 Nicotine dependence, unspecified, uncomplicated

== ENCOUNTER → 2018-01-18 11:22 | Outpatient (CLI) | payer MEDICARE, OTHER ==
[2017-11-07 07:14] VITALS: BMI 29.6
[~2018-01-18 11:22] MED LIST changes: +BACTROBAN CREAM15 GM TOPICAL
== END | disposition home or self-care (01) ==
LOC: D.RAD 11:22
DX: M25.552 Pain in left hip (principal)

== ENCOUNTER → 2018-02-01 10:25 | Outpatient (CLI) | payer MEDICARE, OTHER ==
[2017-11-07 07:14] VITALS: BMI 29.6
== END | disposition home or self-care (01) ==
LOC: D.MRI 10:25
DX: M54.5 Low back pain (principal)

== ENCOUNTER 2018-07-06 06:45 | Inpatient (IN) | payer MEDICARE, OTHER ==
[2018-07-05 10:04] LABS: HEMATOCRIT 44.8 % (36.0-48.0); HEMOGLOBIN 15.2 g/dL (12-16); MCH 34.7 pg (26.0-34.0); MCHC 33.9 g/dL (31.0-37.0); MCV 102.3 fL (80.0-100.0); MEAN PLATELET VOLUME 8.7 fL (7.4-10.4); RBC 4.38 10x6/uL (4.00-5.40); RDW 12.2 % (11.5-14.5); WBC 7.2 10x3/uL (4.8-10.8)
[2018-07-05 10:12] LABS: ANION GAP 15.4 mmol/L (8-16); CALCIUM 8.7 mg/dL (8.5-10.1); CREATININE - SERUM 1.1 mg/dL (0.6-1.3); POTASSIUM - SERUM 4.4 mmol/L (3.5-5.1)
[~2018-07-06] VITALS: Ht 162.6 cm; Wt 81.8 kg
[2018-07-06 08:32] VITALS: BP 116/68; BMI 31.3
--- NOTE | 2018-07-06 14:53 | NUR ---
60CC OF RED FLUID REMOVED FROM MICKIE DRAIN @[id number]
[2018-07-06 17:30] VITALS: BP 125/66; Ht 162.6 cm; Wt 81.8 kg
--- NOTE | 2018-07-06 19:15 | NUR ---
RECEIVED CARE FROM DAY NURSE. SITTING UP IN BED WITH FAMILY AT SIDE. REPORTS NO NEEDS AT THIS TIME. IV INFUSING PER ORDER TO LEFT AC. MICKIE TO RIGHT LOWER QUAD WITH DRESSING CDI. DEL ANGEL TO GRAVITY DRAINING GREEN URINE.
[2018-07-06 20:00] VITALS: BP 103/60
[2018-07-06 23:35] VITALS: BP 102/57
--- NOTE | 2018-07-07 | NUR ---
PT C/O TROUBLE BREATHING AND WANTING TO BE PLACED ON O2 AND TO HAVE HER RESCUE INHAILER. PT PLACED ON 2L O2. ASCULTATED AND LUNGS CLEAR. RT CALLED TO EVALUATE PT. SATING ON ROOM AIR 98%. HOME MEDICATIONS RENEWED AND XANAX TO BE GIVEN.
[2018-07-07 04:00] VITALS: BP 96/58
[2018-07-07 06:17] LABS: BASOPHILS 0.1 % (0-2); EOSINOPHILS 0 % (0-7); HEMATOCRIT 36.7 % (36.0-48.0); IMMATURE GRANULOCYTES 0.3 % (0-5); LYMPHOCYTES 9.7 % (15-50); MCH 33.5 pg (26.0-34.0); MCHC 32.4 g/dL (31.0-37.0); MCV 103.4 fL (80.0-100.0); MEAN PLATELET VOLUME 10.1 fL (7.4-10.4); MONOCYTES 8.6 % (2-11); NEUTROPHILS 81.3 % (40-80); PLATELET COUNT 216 10x3/uL (130-400); RBC 3.55 10x6/uL (4.00-5.40); RDW 12.3 % (11.5-14.5)
[2018-07-07 06:30] LABS: HEMOGLOBIN 11.9 g/dL (12-16); WBC 13.7 10x3/uL (4.8-10.8)
[2018-07-07 06:38] LABS: ALBUMIN 2.6 g/dL (3.4-5.0); ALKALINE PHOSPHATASE 45 U/L (46-116); ALT (SGPT) 41 U/L (10-68); BILIRUBIN - TOTAL 0.34 mg/dL (0.2-1.3); CALC OSMOLALITY 286 mosm/kg (275-300); CALCIUM 7.4 mg/dL (8.5-10.1); CARBON DIOXIDE 21.8 mmol/L (21.0-32.0); CHLORIDE - SERUM 109 mmol/L (98-107); CREATININE - SERUM 1.1 mg/dL (0.6-1.3); GLUCOSE 111 mg/dL (74-106); MAGNESIUM - SERUM 1.8 mg/dL (1.8-2.4); PHOSPHOROUS 3.6 mg/dL (2.5-4.9); POTASSIUM - SERUM 4.7 mmol/L (3.5-5.1); PROTEIN - SERUM 5.9 g/dL (6.4-8.2); SODIUM 142 mmol/L (136-145); TROPONIN-I < 0.017 ng/mL (0.000-0.060); UREA NITROGEN 21 mg/dL (7-18); eGFR NON AFRICAN AMERICAN 52 mL/min (90-120)
--- NOTE | 2018-07-07 07:37 | NUR ---
PT SITTING UP IN BED VISITING WITH FAMILY. CO OF BEING "ITCHY TO FACE AND NECK AND SOME INCREASE ANXIETY" NO S/S OF ACUTE DISTRESS. CL IN PLACE.
--- NOTE | 2018-07-07 08:14 | NUR ---
PT RESTING IN BED. CO OF "ITCHY". SPOKE WITH DR THORPE WHO WAS IN VISITING PT AND HE WAS GOING TO CHANGE HER PAIN MEDICATION TO SEE IF IT WOULD RESOLVE. NO S/S OF ACUTE DISTRESS. CL IN PLACE.
[2018-07-07 10:59] VITALS: BP 131/65
[2018-07-07 13:40] VITALS: BP 116/59
[2018-07-07 16:59] VITALS: BP 104/58
[2018-07-07 18:15] LABS: APPEARANCE CLEAR (CLEAR); BILIRUBIN NEGATIVE (NEGATIVE); COLOR YELLOW (YELLOW); GLUCOSE NEGATIVE (NEGATIVE); KETONE NEGATIVE (NEGATIVE); NITRITE POSITIVE (NEGATIVE); PROTEIN TRACE mg/dL (NEGATIVE); SPECIFIC GRAVITY 1.015 (1.005-1.020); UROBILINOGEN NORMAL (NORMAL)
[2018-07-07 18:22] LABS: BACTERIA FEW /hpf (NONE SEEN); EPITHELIAL CELLS OCC /hpf (0-5); RED CELLS - URINE 0-5 /hpf (0-5); WHITE CELLS - URINE OCC /hpf (0-5)
--- NOTE | 2018-07-07 19:06 | NUR ---
PT RESTING IN BED. WATCHING TV. NO S.S OF ACUTE DISTRESS. CL IN PLACE.
--- NOTE | 2018-07-07 19:15 | NUR ---
RECEIVED CARE FROM DAY NRUSE. LYING IN BED READING. REPORTS NO NEEDS AT THIS TIME. CALL LIGHT AT SIDE. IV INFUSING PER ORDER TO LEFT FA. MER TO GRAVITY.
[2018-07-07 20:36] VITALS: BP 96/51
--- NOTE | 2018-07-07 22:35 | NUR ---
PT C/O CHEST PAIN RADIATING TO BACK AND UP LEFT SIDE OF NECK AND LEFT ARM. PAIN LEVEL 10. RAPID RESPONSE CALLED. EKG DONE, CMP, CBC, CK, CKMB, AND TROPONIN DONE. ICU NURSE SPOKE WITH DR PETERSON. NO NEW ORDERS AT THIS TIME. XANAX GIVEN DURING RAPID.
[2018-07-07 23:00] LABS: HEMATOCRIT 32.9 % (36.0-48.0); HEMOGLOBIN 11.3 g/dL (12-16); LYMPHOCYTES 25.5 % (15-50); MCH 34.9 pg (26.0-34.0); MCHC 34.3 g/dL (31.0-37.0); MCV 101.5 fL (80.0-100.0); MEAN PLATELET VOLUME 8.3 fL (7.4-10.4); NEUTROPHILS 61.9 % (40-80); PLATELET COUNT 177 10x3/uL (130-400); RBC 3.24 10x6/uL (4.00-5.40); RDW 11.4 % (11.5-14.5); WBC 10.1 10x3/uL (4.8-10.8)
[2018-07-07 23:11] LABS: ALBUMIN 2.5 g/dL (3.4-5.0); ALKALINE PHOSPHATASE 49 U/L (46-116); BILIRUBIN - TOTAL 0.33 mg/dL (0.2-1.3); CALC OSMOLALITY 285 mosm/kg (275-300); CALCIUM 7.4 mg/dL (8.5-10.1); CHLORIDE - SERUM 107 mmol/L (98-107); CREATININE - SERUM 1.2 mg/dL (0.6-1.3); GLUCOSE 131 mg/dL (74-106); POTASSIUM - SERUM 4.1 mmol/L (3.5-5.1); PROTEIN - SERUM 5.9 g/dL (6.4-8.2); SODIUM 141 mmol/L (136-145); UREA NITROGEN 21 mg/dL (7-18); eGFR NON AFRICAN AMERICAN 47 mL/min (90-120)
[2018-07-07 23:12] LABS: ALT (SGPT) 29 U/L (10-68)
[2018-07-07 23:22] LABS: CKMB 0.6 U/L (0.0-3.6); CREATINE KINASE 127 UL (21-215); TROPONIN-I < 0.017 ng/mL (0.000-0.060)
[2018-07-07 23:55] VITALS: BP 120/53
[2018-07-08 04:20] VITALS: BP 106/54
--- NOTE | 2018-07-08 05:07 | NUR ---
I have reviewed this patient and I concur with the Shift Assessment completed by the Licensed Practical Nurse today this shift.
[2018-07-08 06:42] LABS: BASOPHILS 0.3 % (0-2); EOSINOPHILS 1.1 % (0-7); HEMOGLOBIN 11.2 g/dL (12-16); IMMATURE GRANULOCYTES 0.3 % (0-5); LYMPHOCYTES 25.9 % (15-50); MCH 33.5 pg (26.0-34.0); MEAN PLATELET VOLUME 9.8 fL (7.4-10.4); MONOCYTES 13.3 % (2-11); NEUTROPHILS 59.1 % (40-80); PLATELET COUNT 196 10x3/uL (130-400); RBC 3.34 10x6/uL (4.00-5.40); RDW 12.6 % (11.5-14.5)
[2018-07-08 07:10] LABS: MCV 104.8 fL (80.0-100.0)
[2018-07-08 07:17] LABS: ANION GAP 15.5 mmol/L (8-16); CALCIUM 7.5 mg/dL (8.5-10.1); CARBON DIOXIDE 21.6 mmol/L (21.0-32.0); POTASSIUM - SERUM 4.1 mmol/L (3.5-5.1)
--- NOTE | 2018-07-08 07:57 | NUR ---
PT RESTING IN BED. AROUSED BY VERBAL STIMULI. NO S/S OF ACUTE DISTRESS. CL IN PLACE.
[2018-07-08 08:59] VITALS: BP 127/59
[2018-07-08 13:09] VITALS: BP 139/62
[2018-07-08 16:47] VITALS: BP 110/57
--- NOTE | 2018-07-08 18:13 | NUR ---
PT RESTING IN BED. CO OF PAIN. DAUGHTER AT BEDSIDE. NO S/S OF ACUTE DISTRESS. CL IN PLACE.
--- NOTE | 2018-07-08 19:15 | NUR ---
RECEIVED CARE FROM DAY NURSE. LYING IN BED WITH COMPANY AT SIDE. CALL LIGHT AT SIDE. DEL ANGEL TO GRAVITY. IV INFUSING PER ORDER.
[2018-07-08 20:00] VITALS: BP 104/55
[2018-07-09] VITALS: BP 100/56
--- NOTE | 2018-07-09 01:10 | NUR ---
IV IN LEFT FA LEAKING, RED, AND TENDER. DC'D WITH TIP INTACT. RESITED TO RIGHT FA. 22 GUAGE X2 STICKS WITH GOOD BLOOD RETURN NOTED.
[2018-07-09 03:00] VITALS: BP 117/55
--- NOTE | 2018-07-09 06:54 | NUR ---
I have reviewed this patient and I concur with the Shift Assessment completed by the Licensed Practical Nurse today this shift.
--- NOTE | 2018-07-09 08:21 | NUR ---
AWAKE AND ALERT. ORIENTED X3. NO C/O AT THIS TIME. LUNGS ARE CLEAR BILATERALLY, NO COUGH NOTED. SKIN IS INTACT WITHOUT REDNESS EXCEPT INCISION TO LOWER ABDOMEN WHICH HAS A DRY INTACT DRESSING IN PLACE. MICKIE PATENT TO SAME WITH SEROUS SANGUINESS DRAINAGE NOTED. IV TO RIGHT FOREARM IS PATENT WITHOUT REDNESS AT INSERTION SITE. DENIES NEEDS. DEL ANGEL PATENT WITYH CLEAR YELLOW URINE. BREAKFAST SERVED IN ROOM. FAMILY AT BEDSIDE. SCD'S IN PLACE.
--- NOTE | 2018-07-09 08:33 | NUR ---
MANUAL RECHECK ON BP WAS 100/68.
[2018-07-09 08:44] VITALS: BP 96/60
--- NOTE | 2018-07-09 08:45 | NUR ---
SITTING UP IN BED EATING BREAKFAST. REQUESTED AND GIVEN ONE HYDROCODOONE PO FOR C/O ABDOMINAL PAIN LEVEL 3. WILL MONITOR.
--- NOTE | 2018-07-09 10:00 | NUR ---
UP IN CHAIR AT BEDSIDE PER PT. DENIES NEEDS.
[2018-07-09 12:38] VITALS: BP 97/57
--- NOTE | 2018-07-09 13:30 | NUR ---
ATE ABOUT HALF OF LUNCH TRAY. DENIES NEEDS.
--- NOTE | 2018-07-09 16:45 | NUR ---
C/O NOT BEING ABLE TO BREATHE. O2 SATS IN THE HIGH 90'S. DISCUSSED BEING ANXIOUS. GIVEN 0.5MG XANAX PO. WILL MONITOR.
[2018-07-09 17:17] VITALS: BP 100/57
--- NOTE | 2018-07-09 18:52 | NUR ---
STITTING UP IN BED EATING SUPPER. STATED SHE FEELS MUCH BETTER NOW. NO CHANGES NOTED. DENIES NEEDS.
--- NOTE | 2018-07-09 19:35 | NUR ---
PT RESTING IN BED. ALERT AND ORIENTED. NO SIGNS OF DISTRESS. BREATHING EVEN AND UNLABORED. IV SITE RT FA DRESSING CLEAN DRY AND INTACT. NO SIGNS OF INFECTION. ABD DRESSING CLEAN DRY AND INTACT. MICKIE DRAIN TO RT LOWER ABD. DEL ANGEL IN PLACE AND DRAINING CLEAR YELLOW. NO LOWER LEG SWELLING PRESENT. WILL CONTINUE PLAN OF CARE. CALL LIGHT IN REACH. BED LOWERED AND LOCKED. BED RAILS UP X2.
--- NOTE | 2018-07-09 22:00 | NUR ---
PT IV INFULTRATED. NEW IV RT WRIST 22G. ATTEMPTS X3. PT TOLERATED WELL. IV FLUIDS STARTED AGAIN. WILL CONTINUE PLAN OF CARE.
[2018-07-09 22:38] VITALS: BP 121/96
--- NOTE | 2018-07-10 04:44 | NUR ---
I have reviewed this patient and I concur with the Shift Assessment completed by the Licensed Practical Nurse today this shift.
[2018-07-10 05:53] VITALS: BP 98/60
--- NOTE | 2018-07-10 08:23 | NUR ---
AWAKE AND ALERT. ORIENTED X3. NO C/O AT THIS TIME. LUNGS ARE CLEAR BILATERALLY, NO COUGH NOTED. SKIN IS INTACT WITHOUT REDNESS EXCEPT INCISION TO MID ABDOMEN WHICH HAS A DRY INTACT DRESSING IN PLACE. MICKIE TO RIGHT LOWER ABDOMEN IS PATENT WITH SCANT SEROUS SANGUINESS DRAINAGE NOTED. IV TO RIGHT FOREARM IS PATENT WITHOUT REDNESS AT INSERTION SITE. BREAKFAST SERVED IN ROOM. DENIES NEEDS.
[2018-07-10 09:46] VITALS: BP 113/61
--- NOTE | 2018-07-10 10:00 | NUR ---
AMBULATED IN HALLWAY WITH PT 250 FEET. NO C/O AT THIS TIME.
--- NOTE | 2018-07-10 12:15 | MORECARE ---
CASE MANAGEMENT DISCHARGE SUMMARY PATIENT: OPAL MATTHEWS UNIT: [id number] ADM DATE: 07/06/18 AGE: 68 : 51 SEX: F ROOM/BED: D.2211 AUTHOR: TAMIA AU PHYSICIAN: REFERRING PHYSICIAN: NIHARIKA FLYNN MD DATE OF SERVICE: 07/10/18 Discharge Plan Patient Name: OPAL MATTHEWS [facility] [facility] 1950 Planned Disposition: Home with Home Health Anticipated Discharge Date: Discharge Date: Expected LOS: Initial Reviewer: [email or web address] Initial Review Date: 07/06/2018 Generated: 07/10/18 1:14 pm Patient Name: OPAL MATTHEWS Page [phone] at 1215 All edits/amendments must be made on the electronic document DICTATION DATE: 07/10/18 121 PRACTICE PROFESSIONAL: EWA 07/10/18 1214 RPT#: [id number] DC DATE: STATUS: ADM IN [facility] [address] [place] [address] END OF REPORT
--- NOTE | 2018-07-10 12:22 | MORECARE ---
CASE MANAGEMENT DISCHARGE SUMMARY PATIENT: OPAL MATTHEWS UNIT: [id number] ADM DATE: 07/06/18 AGE: 68 : 51 SEX: F ROOM/BED: D.2211 AUTHOR: ANGELY,DOC PHYSICIAN: REFERRING PHYSICIAN: NIHARIKA FLYNN MD DATE OF SERVICE: 07/10/18 Discharge Plan Patient Name: OPAL MATTHEWS Facility: [facility]:[place] : 1950 Planned Disposition: Home with Home Health Anticipated Discharge Date: Discharge Date: Expected LOS: Initial Reviewer: [email or web address] Initial Review Date: 07/06/2018 Generated: 07/10/18 1:22 pm Comments DCP- Discharge Planning Updated by [id number]: Rosalee Gallo on 07/10/18 11:[address] Patient Name: OPAL MATTHEWS Admission Status: Elective Accout number: [id number] Admission Date: 07-06-2018 : 1950 Admission Diagnosis:UNSPECIFIED INJURY OF BLADDER, INITIAL ENCOUNTER Attending: NIHARIKA FLYNN Current LOS: 4 Anticipated DC Date: Planned Disposition: Home with Home Health Primary Insurance: MEDICARE A & B Discharge Planning Comments: CM met with patient to complete initial dc planning assessment. CM educated patient on the CM role and verbal consent given by patient to complete assessment. Patient lives at home with her sister and daughter where she is independent with her care. At discharge patient plans to return home and feels this is a safe discharge. CM discussed availability of home health, rehab services, and medical equipment. Patient would like [facility] for [place]. Patient has a BSC, Nebulizer (unknown the company) walker and rails. Either her daughter or sister will be her fence post driver home. IMM explained and given . CM will continue to follow and will assist as needed with dc plans/needs. Elementary School Principal: Rosalee Gallo DCPIA - Discharge Planning Initial Assessment Updated by [email or web address]: Rosalee Gallo on 07/10/18 12:15 pm * Is the patient Alert and Oriented? Yes * How many steps to enter\exit or inside your home? ramp * PCP SHONDA * Pharmacy [address] * Preadmission Environment Home with Family * ADLs Independent * Equipment Bedside Commode Grab Bars Nebulizer Rolling Walker * List name and contact numbers for known caregivers / representatives who currently or will assist patient after discharge: EMILY PERRY [phone] * Verbal permission to speak to the caregivers and representatives has been obtained from the patient. N/A * Community resources currently utilized None * Additional services required to return to the preadmission environment? Yes * Can the patient safely return to the preadmission environment? Yes * Has this patient been hospitalized within the prior 30 days at any hospital? No Last DP export: 07/10/18 11:15 a Patient Name: OPAL MATTHEWS Page [id number] at 1222 All edits/amendments must be made on the electronic document DICTATION DATE: 07/10/181221 LOADING DOCK HELPER: EWA 07/10/181221 RPT#: [id number] DC DATE: STATUS: ADM IN [facility] [address] [place] [address] END OF REPORT
--- NOTE | 2018-07-10 12:30 | NUR ---
SITTING UP IN CHAIR AT BEDSIDE EATING LUNCH. DENIES NEEDS.
--- NOTE | 2018-07-10 14:21 | NUR ---
DEL ANGEL HAS BEEN LEAKING. NO OBVIOUS CAUSE NOTED. WILL MONITOR.
[2018-07-10] MEDS ORDERED: HYDROCODON-ACE1 EA10 PO (14:26)
--- NOTE | 2018-07-10 15:01 | MORECARE ---
CASE MANAGEMENT DISCHARGE SUMMARY PATIENT: OPAL MATTHEWS UNIT: [id number] ADM DATE: 07/06/18 AGE: 68 : 51 SEX: F ROOM/BED: D.2211 AUTHOR: ANGELY,DOC PHYSICIAN: REFERRING PHYSICIAN: NIHARIKA FLYNN MD DATE OF SERVICE: 07/10/18 Discharge Plan Patient Name: OPAL MATTHEWS Facility: [facility]:[place] : 1950 Planned Disposition: Home with Home Health Anticipated Discharge Date: Discharge Date: Expected LOS: Initial Reviewer: [email or web address] Initial Review Date: 07/06/2018 Generated: 07/10/18 4:01 pm Comments DCP- Discharge Planning Updated by [email or web address]: Rosalee Gallo on 07/10/18 11:[address] Patient Name: OPAL MATTHEWS Admission Status: Elective Accout number: [id number] Admission Date: 07-06-2018 : 1950 Admission Diagnosis:UNSPECIFIED INJURY OF BLADDER, INITIAL ENCOUNTER Attending: NIHARIKA FLYNN Current LOS: 4 Anticipated DC Date: Planned Disposition: Home with Home Health Primary Insurance: MEDICARE A & B Discharge Planning Comments: CM met with patient to complete initial dc planning assessment. CM educated patient on the CM role and verbal consent given by patient to complete assessment. Patient lives at home with her sister and daughter where she is independent with her care. At discharge patient plans to return home and feels this is a safe discharge. CM discussed availability of home health, rehab services, and medical equipment. Patient would like [facility] for [place]. Patient has a BSC, Nebulizer (unknown the company) walker and rails. Either her daughter or sister will be her rivet driver home. IMM explained and given . CM will continue to follow and will assist as needed with dc plans/needs. Wood Carving Machine Operator: Rosalee Gallo DCPIA - Discharge Planning Initial Assessment Updated by [email or web address]: Rosalee Gallo on 07/10/18 12:15 pm * Is the patient Alert and Oriented? Yes * How many steps to enter\exit or inside your home? ramp * PCP SHONDA * Pharmacy [address] * Preadmission Environment Home with Family * ADLs Independent * Equipment Bedside Commode Grab Bars Nebulizer Rolling Walker * List name and contact numbers for known caregivers / representatives who currently or will assist patient after discharge: EMILY PERRY [phone] * Verbal permission to speak to the caregivers and representatives has been obtained from the patient. N/A * Community resources currently utilized None * Additional services required to return to the preadmission environment? Yes * Can the patient safely return to the preadmission environment? Yes * Has this patient been hospitalized within the prior 30 days at any hospital? No External Providers External Provider: [facility] Next Contact Date: Service Request Date: Service Type: Resolution: Reviewer: Comments: Coverage Notice Reviewer: [email or web address] Rikki Gallo Notice Issued Date-Time: 07/10/2018 12:00 Notice Type: IM Discharge Notice Notice Delivered To: Patient Relationship to Patient: Corporate Treasury Analyst Name: Delivery Method: HAND - Hand Delivered Elizabeth Days: Prior Verbal Notification: Recipient Understood Notice: Yes Recipient Signature: Yes Med Rec Note Co-signed by Attending: Coverage Notice Comment: Last DP export: 07/10/18 11:22 a Patient Name: OPAL MATTHEWS Page [id number] at 1501 All edits/amendments must be made on the electronic document DICTATION DATE: 07/10/18 150 SLOT MACHINE REPAIRER: EAW 07/10/18 1501 RPT#: [id number] DC DATE: STATUS: ADM IN [facility] [address] [place] [address] END OF REPORT
[2018-07-10 15:10] VITALS: BP 105/59
--- NOTE | 2018-07-10 15:12 | MORECARE ---
CASE MANAGEMENT DISCHARGE SUMMARY PATIENT: OPAL MATTHEWS UNIT: [id number] ADM DATE: 07/06/18 AGE: 68 : 51 SEX: F ROOM/BED: D.2211 AUTHOR: TAMIA AU PHYSICIAN: REFERRING PHYSICIAN: NIHARIKA FLYNN MD DATE OF SERVICE: 07/10/18 Discharge Plan Patient Name: OPAL MATTHEWS Facility: [facility]:[place] : 1950 Planned Disposition: Home with Home Health Anticipated Discharge Date: Discharge Date: Expected LOS: Initial Reviewer: [id number] Initial Review Date: 07/06/2018 Generated: 07/10/18 4:12 pm Comments DCP- Discharge Planning Updated by [email or web address]: Rosalee Gallo on 07/10/18 2:[address] PATIENT WILL BE DISCHARGING HOME TODAY WITH [facility]. I SPOKE WITH ANNA MARIE AT [place]. DCP- Discharge Planning Updated by [email or web address]: Rosalee Gallo on 07/10/18 11:[address] Patient Name: OPAL MATTHEWS Admission Status: Elective Accout number: [id number] Admission Date: 07-06-2018 : 1950 Admission Diagnosis:UNSPECIFIED INJURY OF BLADDER, INITIAL ENCOUNTER Attending: NIHARIKA FLYNN Current LOS: 4 Anticipated DC Date: Planned Disposition: Home with Home Health Primary Insurance: MEDICARE A & B Discharge Planning Comments: CM met with patient to complete initial dc planning assessment. CM educated patient on the CM role and verbal consent given by patient to complete assessment. Patient lives at home with her sister and daughter where she is independent with her care. At discharge patient plans to return home and feels this is a safe discharge. CM discussed availability of home health, rehab services, and medical equipment. Patient would like home health, [facility] for [place]. Patient has a BSC, Nebulizer (unknown the company) walker and rails. Either her daughter or sister will be her starting gate driver home. IMM explained and given . CM will continue to follow and will assist as needed with dc plans/needs. Electronics Assembler And Tester: Rosalee Gallo DCPIA - Discharge Planning Initial Assessment Updated by [id number]: Rosalee Gallo on 07/10/18 12:15 pm * Is the patient Alert and Oriented? Yes * How many steps to enter\exit or inside your home? ramp * PCP SHONDA * Pharmacy [address] * Preadmission Environment Home with Family * ADLs Independent * Equipment Bedside Commode Grab Bars Nebulizer Rolling Walker * List name and contact numbers for known caregivers / representatives who currently or will assist patient after discharge: EMILY PERRY [phone] * Verbal permission to speak to the caregivers and representatives has been obtained from the patient. N/A * Community resources currently utilized None * Additional services required to return to the preadmission environment? Yes * Can the patient safely return to the preadmission environment? Yes * Has this patient been hospitalized within the prior 30 days at any hospital? No Coverage Notice Reviewer: [id number] Rikki Gallo Notice Issued Date-Time: 07/10/2018 12:00 Notice Type: IM Discharge Notice Notice Delivered To: Patient Relationship to Patient: Housing Assistant Property Manager Name: Delivery Method: HAND - Hand Delivered Elizabeth Days: Prior Verbal Notification: Recipient Understood Notice: Yes Recipient Signature: Yes Med Rec Note Co-signed by Attending: Coverage Notice Comment: Last DP export: 07/10/18 2:01 p Patient Name: OPAL MATTHEWS Page [id number] at 1512 All edits/amendments must be made on the electronic document DICTATION DATE: 07/10/181511 SPECIMEN ACCESSIONER: EWA 07/10/181511 RPT#: [id number] DC DATE: STATUS: ADM IN [facility] [address] [place] [address] END OF REPORT
--- NOTE | 2018-07-10 15:52 | NUR ---
DISCHARGED TO HOME AMBULATORY WITH DAUGHTER. DISCHARGE INSTRUCTIONS GIVEN BOTH VERBALLY AND WRITTEN. ALL QUESTIONS ANSWERED. PATIENT AND DAUGHTER VERBALIZED UNDERSTANDING OF SAME. INSTRUCTED IN CARE OF MICKIE DRAIN AND HOW TO CARE FOR AND EMPTY DEL ANGEL CATHETER WITH RETURN DEMONSTRATIONS. ALL BELONGINGS WITH PATIENT. IV TO RIGHT FOREARM D/C WITH CATHETER INTACT.
--- NOTE | 2018-07-11 15:11 | MORECARE ---
CASE MANAGEMENT DISCHARGE SUMMARY PATIENT: OPAL MATTHEWS UNIT: [id number] ADM DATE: 07/06/18 AGE: 68 : 51 SEX: F ROOM/BED: D.2211 AUTHOR: TAMIA AU PHYSICIAN: REFERRING PHYSICIAN: NIHARIKA FLYNN MD DATE OF SERVICE: 07/11/18 Discharge Plan Patient Name: OPAL MATTHEWS Facility: [facility]:[place] : 1950 Planned Disposition: Home with Home Health Anticipated Discharge Date: Discharge Date: 07/10/2018 Expected LOS: Initial Reviewer: [email or web address] Initial Review Date: 07/06/2018 Generated: 07/11/18 4:11 pm Comments DCP- Discharge Planning Updated by [email or web address]: Rosalee Gallo on 07/10/18 2:[address] PATIENT WILL BE DISCHARGING HOME TODAY WITH [facility]. I SPOKE WITH ANNA MARIE AT [place]. DCP- Discharge Planning Updated by [email or web address]: Rosalee Gallo on 07/10/18 11:[address] Patient Name: OPAL MATTHEWS Admission Status: Elective Accout number: [id number] Admission Date: 07-06-2018 : 1950 Admission Diagnosis:UNSPECIFIED INJURY OF BLADDER, INITIAL ENCOUNTER Attending: NIHARIKA FLYNN Current LOS: 4 Anticipated DC Date: Planned Disposition: Home with Home Health Primary Insurance: MEDICARE A & B Discharge Planning Comments: CM met with patient to complete initial dc planning assessment. CM educated patient on the CM role and verbal consent given by patient to complete assessment. Patient lives at home with her sister and daughter where she is independent with her care. At discharge patient plans to return home and feels this is a safe discharge. CM discussed availability of home health, rehab services, and medical equipment. Patient would like home health, [facility] for [place]. Patient has a BSC, Nebulizer (unknown the company) walker and rails. Either her daughter or sister will be her special needs bus driver home. IMM explained and given . CM will continue to follow and will assist as needed with dc plans/needs. Linotype Machinist: Rosalee Gallo DCPIA - Discharge Planning Initial Assessment Updated by [email or web address]: Rosalee Gallo on 07/10/18 12:15 pm * Is the patient Alert and Oriented? Yes * How many steps to enter\exit or inside your home? ramp * PCP SHONDA * Pharmacy [address] * Preadmission Environment Home with Family * ADLs Independent * Equipment Bedside Commode Grab Bars Nebulizer Rolling Walker * List name and contact numbers for known caregivers / representatives who currently or will assist patient after discharge: EMILY PERRY [phone] * Verbal permission to speak to the caregivers and representatives has been obtained from the patient. N/A * Community resources currently utilized None * Additional services required to return to the preadmission environment? Yes * Can the patient safely return to the preadmission environment? Yes * Has this patient been hospitalized within the prior 30 days at any hospital? No Coverage Notice Reviewer: [id number] Rikki Gallo Notice Issued Date-Time: 07/10/2018 12:00 Notice Type: IM Discharge Notice Notice Delivered To: Patient Relationship to Patient: Older Adult Social Work Specialist Name: Delivery Method: HAND - Hand Delivered Elizabeth Days: Prior Verbal Notification: Recipient Understood Notice: Yes Recipient Signature: Yes Med Rec Note Co-signed by Attending: Coverage Notice Comment: Last DP export: 07/10/18 2:12 p Patient Name: OPAL MATTHEWS Page [id number] at 1511 All edits/amendments must be made on the electronic document DICTATION DATE: 07/11/18 151 BUSINESS EDUCATION PROFESSOR: EWA 07/11/18 1511 RPT#: [id number] DC DATE:07/10/18 STATUS: DIS IN [facility] [address] [place] [address] END OF REPORT
== END 2018-07-10 15:54 | disposition home health service (06) | DRG 654 ==
LOC: D.OPS 06:45 → D.PAN 09:00 → D.MS 15:59 → D.OPS 16:00 → D.MS 16:00
PROVIDERS: Anesthesiology; Surgery; ADMIT Surgery; ATTEND Surgery
PROC: 0TQB0ZZ Repair Bladder, Open Approach (ICD-10-PCS; 2018-07-06)
PROC: 0WQF0ZZ Repair Abdominal Wall, Open Approach (ICD-10-PCS; principal; 2018-07-06 09:00)
DX: S37.20XA Unspecified injury of bladder, initial encounter (principal); K43.0 Incisional hernia with obstruction, without gangrene; F41.0 Panic disorder [episodic paroxysmal anxiety]

== ENCOUNTER → 2018-07-16 09:45 | Outpatient (CLI) | payer MEDICARE, OTHER ==
[2018-07-06 17:30] VITALS: BMI 30.9
[~2018-07-16 09:45] MED LIST changes: +HYDROCODON-ACE1 EA10 PO
== END | disposition home or self-care (01) ==
LOC: D.RAD 09:30
PROVIDERS: ATTEND Urology
DX: K43.2 Incisional hernia without obstruction or gangrene (principal)

== ENCOUNTER → 2020-01-07 10:30 | Outpatient (CLI) | payer MEDICARE, OTHER ==
[2018-07-06 17:30] VITALS: BMI 30.9
== END | disposition home or self-care (01) ==
LOC: D.MAMMO 10:30
PROVIDERS: ATTEND Family Medicine
DX: Z12.31 Encounter for screening mammogram for malignant neoplasm of breast (principal)